=== PATIENT | male | born 1965 | race Caucasian/White ===

== ENCOUNTER 2017-08-26 14:40 | Observation (INO) ==
--- NOTE | 2017-08-26 15:02 | Emergency Department Note ---
Disposition Clinical Impression: Renal mass Chest pain Qualifiers: Chest pain type: unspecified Qualified Code(s): R07.9 - Chest pain, unspecified Disposition: Admitted As Inpatient Condition: Fair Time of Disposition: 18:11 General Adult HPI - General Chief complaint: ED General Medical Stated complaint: hypertension Time Seen by Provider: 08/26/17 14:57 Source: patient Mode of arrival: ambulatory Limitations: no limitations Nursing Notes Reviewed: Yes Vital Signs Reviewed: Yes - History of Present Illness HPI Narrative: Headache elevated blood pressure shoulder pain back pain. Describes the pain as tearing type pain in the posterior left shoulder. Pt Subjective Complaint: 52-year-old male who comes in complaining of elevated blood pressure says h Onset (ago): day(s) Location: head, left, upper extremity Radiation: back Pain Severity: moderate Pain Scale: 7 Quality: aching Consistency: constant Improves with: nothing Worsens with: nothing Associated symptoms: Reports: headaches. Denies: confusion Treatments Prior to Arrival: none - Related Data Allergies Allergy/AdvReac Type Severity Reaction Status Date / Time Iodinated Contrast- Oral and Allergy Mild Hives Verified 08/26/17 16:24 IV Dye Sulfa (Sulfonamide Allergy Swelling Verified 05/17/15 18:21 Antibiotics) of Lip/Tongue/Throat bees Allergy Swelling Uncoded 05/17/15 18:21 of Lip/Tongue/Throat All systems ED: reviewed and negative except as stated. Constitutional: Denies: fever, chills, weakness, weight change Eyes: Denies: eye pain, eye discharge, vision change ENT ED: Denies: ear pain, throat pain, dental pain, hearing loss, epistaxis, congestion, dysphagia Cardiovascular: Denies: chest pain, palpitations, dyspnea on exertion, edema, syncope Respiratory: Denies: cough, dyspnea, wheezes, hemoptysis, stridor Gastrointestinal: Denies: abdominal pain, nausea, vomiting, diarrhea, constipation, hematemesis, melena, hematochezia Genitourinary: Denies: urgency, dysuria, frequency, hematuria Musculoskeletal: Reports: arthralgia. Denies: back pain, neck pain, myalgia Integumentary: Denies: rash, abrasion, lesions Neurological: Reports: headache. Denies: weakness, numbness, paresthesias, confusion, abnormal gait, vertigo Psychiatric: Denies: anxiety, depression, suicidal thoughts, homicidal thoughts , auditory hallucinations, visual hallucinations Endocrine: Denies: fatigue Hematological/Lymphatic: Denies: easy bleeding, easy bruising Allergic/Immunologic: Denies: facial swelling, urticaria Past Medical History - Past Medical History Medical history: Reports: diabetes, GERD, hyperlipidemia, hypertension Surgical history: Reports: appendectomy, orthopedic, other, other Psychiatric history: Reports: depression - Social History Smoking Status: Unknown if ever smoked Smokeless Tobacco Status: Yes Alcohol use: Reports: rarely Drug use: Reports: none Physical Exam - General Limitations: no limitations General appearance: alert, in no apparent distress - Head Head exam: atraumatic, normocephalic, normal inspection - Eye Eye exam: Present: normal appearance, PERRL, EOMI - ENT ENT exam: normal exam, normal oropharynx, mucous membranes moist - Neck Neck exam: Present: normal inspection, full ROM, trachea midline - Chest Chest inspection: Present: normal inspection, symmetric chest wall rise - Respiratory Respiratory exam: Present: normal lung sounds bilaterally - Cardiovascular Cardiovascular exam: Present: regular rate, normal rhythm, normal heart sounds - Abdominal Exam Abdominal exam: Present: soft, Non-Tender. Absent: tenderness, distention, guarding, rebound, rigidity - Extremities Exam Extremities exam: Present: normal inspection, full ROM. Absent: tenderness, pedal edema - Expanded Lower Extremity Exam Hip/Pelvis exam: Present: normal inspection, full ROM Neurovascular/Tendon exam: Absent: motor deficit, sensory deficit, tendon deficit - Back Exam Back exam: Present: normal inspection, full ROM. Absent: tenderness - Neurological Exam Neurological exam: Present: alert, oriented X3 - Psychiatric Psychiatric exam: Present: normal affect, normal mood - Skin Skin exam: Present: warm, dry, intact, normal color Course - Reevaluation(s) Reevaluation #1: 52-year-old who came in complaining of some chest discomfort and tearing pain in his shoulder. He CT of the aorta was obtained which showed no dissection however it did show a 3.3 cm mass in the kidney. Patient will be admitted for chest pain and also will be evaluated for the mastitis kidney consultation was obtained with urology. Time: 18:08 - Consultations Consultation #1: Discussed with , will see the patient in consult Time: 18:09 Consultation #2: Discussed with Dr. Donaldson, admit Time: 18:09 Vital Signs Temperature 99.1 F 01/07/18 14:55 Pulse Rate 82 08/26/17 14:55 Respiratory Rate 18 08/26/17 14:55 Blood Pressure 163/115 08/26/17 14:55 O2 Sat by Pulse Oximetry 94 08/26/17 14:55 Temperature 98.6 F 08/26/17 19:39 Pulse Rate 77 08/26/17 19:39 Respiratory Rate 16 08/26/17 19:39 Blood Pressure 154/110 08/26/17 19:39 O2 Sat by Pulse Oximetry 93 08/26/17 19:39 Oxygen Delivery Oxygen Delivery Nasal Cannula Medical Decision Making - Lab Data Lab results reviewed: Yes I reviewed the patient's lab results. Result diagrams: 08/26/17 15:18 08/26/17 15:18 Lab Results 08/26/17 08/26/17 08/26/17 Range/Units 15:18 15:18 15:18 WBC 10.3 (4.3-11.1) K/mcL RBC 5.28 (4.19-5.50) M/mcL Hgb 16.0 (12.9-16.9) g/dL Hct 47.6 (37.5-50.1) % MCV 90.2 (83.0-100.0) fL MCH 30.3 (28.0-33.3) pg MCHC 33.6 (31.6-35.5) g/dL RDW 13.1 (11.5-14.5) % Plt Count 267 (140-400) K/mcL MPV 10.7 (9.4-12.4) fL Immature Gran % 1.0 (0-4) % Seg Neutrophils % 69.4 % Lymphocytes % 17.4 % Monocytes % 9.7 % Eosinophils % 1.9 % Basophils % 0.6 % Neutrophils # 7.2 (1.6-8.9) K/mcL Lymphocytes # 1.8 (0.6-4.6) K/mcL Monocytes # 1.0 (0.0-1.3) K/mcL Eosinophils # 0.2 (0.0-0.6) K/mcL Basophils # 0.1 (0.0-0.2) K/mcL PT 10.2 (9.4-12.1) Seconds INR 1.0 APTT 30.2 (26.0-36.0) Seconds D-Dimer 381 (0-500) ng/mLFEU Sodium 139 (136-145) mEq/L Potassium 3.5 (3.5-5.1) mEq/L Chloride 104 (98-107) mEq/L Carbon Dioxide 27 (23-29) mEq/L BUN 21 H (6-20) mg/dL Creatinine 1.34 H (0.70-1.30) mg/dL Est GFR ( Amer) > 60 (> 60) Est GFR (Non-Af Amer) 56 L (> 60) BUN/Creatinine Ratio 16 (6-26) Glucose 128 H (70-105) mg/dL Calculated Osmolality 293 (280-300) Calcium 10.1 (8.6-10.3) mg/dL Troponin I (< 0.04) ng/mL 08/26/17 Range/Units 15:18 WBC (4.3-11.1) K/mcL RBC (4.19-5.50) M/mcL Hgb (12.9-16.9) g/dL Hct (37.5-50.1) % MCV (83.0-100.0) fL MCH (28.0-33.3) pg MCHC (31.6-35.5) g/dL RDW (11.5-14.5) % Plt Count (140-400) K/mcL MPV (9.4-12.4) fL Immature Gran % (0-4) % Seg Neutrophils % % Lymphocytes % % Monocytes % % Eosinophils % % Basophils % % Neutrophils # (1.6-8.9) K/mcL Lymphocytes # (0.6-4.6) K/mcL Monocytes # (0.0-1.3) K/mcL Eosinophils # (0.0-0.6) K/mcL Basophils # (0.0-0.2) K/mcL PT (9.4-12.1) Seconds INR APTT (26.0-36.0) Seconds D-Dimer (0-500) ng/mLFEU Sodium (136-145) mEq/L Potassium (3.5-5.1) mEq/L Chloride (98-107) mEq/L Carbon Dioxide (23-29) mEq/L BUN (6-20) mg/dL Creatinine (0.70-1.30) mg/dL Est GFR ( Amer) (> 60) Est GFR (Non-Af Amer) (> 60) BUN/Creatinine Ratio (6-26) Glucose (70-105) mg/dL Calculated Osmolality (280-300) Calcium (8.6-10.3) mg/dL Troponin I < 0.03 (< 0.04) ng/mL - Radiology Data Radiology results reviewed: Yes I reviewed the patient's radiology results. Abdomen/Pelvis CTA 08/26/17 15:02 IMPRESSION: No CT evidence of aortic dissection. 3.3 cm heterogeneously enhancing solid mid to lower pole left renal cortical lesion most compatible with renal cell carcinoma. D/ / Jane Owen Cha, MD / Jane Owen Cha, MD Interpreting Provider: Jane Owen Cha, MD Chest CTA 08/26/17 15:02 IMPRESSION: No CT evidence of aortic dissection. 3.3 cm heterogeneously enhancing solid mid to lower pole left renal cortical lesion most compatible with renal cell carcinoma. D/ / Jane Owen Cha, MD / Jane Owen Cha, MD Interpreting Provider: Jane Owen Cha, MD Head CT 08/26/17 15:02 IMPRESSION: No acute intracranial abnormality. D/ / Arpit Randle / Arpit Randle Interpreting Provider: Arpit Randle - EKG Data EKG #1 EKG attestation: Yes I reviewed and interpreted this EKG. EKG shows normal: sinus rhythm Rate: normal Rhythm: NSR Interpretation: no acute changes
[2017-08-26] MEDS ORDERED: Ondansetron 4 MG/2 ML VIAL IVP ONE ×2 (15:13→18:54)
[2017-08-26] MEDS ORDERED: *HR* HYDROmorphone (PF) 1 MG/ML SYRINGE IVP ONE ×2 (15:13→18:54)
[2017-08-26 15:31] LABS: Basophils # 0.1 K/mcL (0.0-0.2); Basophils % 0.6 %; Eosinophils # 0.2 K/mcL (0.0-0.6); Eosinophils % 1.9 %; Hematocrit 47.6 % (37.5-50.1); Lymphocytes # 1.8 K/mcL (0.6-4.6); Lymphocytes % 17.4 %; Mean Corpuscular HGB Conc 33.6 g/dL (31.6-35.5); Mean Corpuscular Hemoglobin 30.3 pg (28.0-33.3); Mean Corpuscular Volume 90.2 fL (83.0-100.0); Mean Platelet Volume 10.7 fL (9.4-12.4); Monocytes % 9.7 %; Neutrophils # 7.2 K/mcL (1.6-8.9); Platelet Count 267 K/mcL (140-400); Red Blood Count 5.28 M/mcL (4.19-5.50); Red Cell Distribution Width 13.1 % (11.5-14.5); Segmented Neutrophils % 69.4 %
[2017-08-26 15:37] LABS: Prothrombin Time 10.2 Seconds (9.4-12.1)
[2017-08-26 15:40] LABS: Activated Partial Thrombo Time 30.2 Seconds (26.0-36.0)
[2017-08-26 15:46] LABS: BUN/Creatinine Ratio 16 (6-26); Blood Urea Nitrogen 21 mg/dL (6-20); Calcium 10.1 mg/dL (8.6-10.3); Carbon Dioxide 27 mEq/L (23-29); Chloride 104 mEq/L (98-107); Glucose 128 mg/dL (70-105); Osmolality,Calculated 293 (280-300); Potassium 3.5 mEq/L (3.5-5.1); Sodium 139 mEq/L (136-145); eGFR For African Americans > 60 (> 60); eGFR For Non-African Americans 56 (> 60)
[2017-08-26] MEDS ORDERED: methylPREDNISolone 125 MG/2 ML VIAL IVP ONE (16:21)
[2017-08-26] MEDS ORDERED: *HR* HYDROmorphone (PF) 1 MG/ML SYRINGE ONE (19:02)
[2017-08-26] MEDS ORDERED: Ondansetron 4 MG/2 ML VIAL ONE (19:03)
[2017-08-26 19:07] LABS: Bilirubin,Urine Negative (Negative); Blood,Urine Negative (Negative); Clarity,Urine Clear (Clear); Color,Urine Yellow (Yellow); Glucose,Urine (UA) Normal (Normal); Ketones,Urine Negative (Negative); Leukocyte Esterase,Urine Negative (Negative); Nitrite,Urine Negative (Negative); Protein,Urine 30 mg/dL (Neg-Trace); Specific Gravity,Urine > 1.030 (1.010-1.025); Urobilinogen,Urine Normal (Normal)
[2017-08-26 19:09] LABS: Bacteria,Urine None Seen per hpf (None-Few); Hyaline Casts,Urine None Seen per lpf (None-Few); RBC,Urine 0-3 per hpf (0-3); Squamous Epithelial Cell,Urine Many per lpf (None-Few); WBC,Urine 0-3 per hpf (0-3)
[2017-08-26] MEDS ORDERED: Ondansetron 4 MG/2 ML VIAL IVP PRN (19:56)
[2017-08-26] MEDS ORDERED: Naloxone 0.4 MG/ML INJ IVP PRN (19:56)
[2017-08-26] MEDS ORDERED: *HR* Morphine 2 MG/ML SYRINGE IVP PRN (19:56)
[2017-08-26] MEDS ORDERED: Aspirin 325 MG TABLET PO ONE (20:06)
[2017-08-26] MEDS ORDERED: *HR* Dextrose 50 % in Water (Syg) 50 ML SYRINGE IVP PRN (20:11)
[2017-08-26] MEDS ORDERED: Dextrose Gel 15 GM/37.5 ML TUBE PO PRN ×2 (20:11)
[2017-08-26] MEDS ORDERED: D5% in Water 1,000 ML IVC PRN (20:11)
--- NOTE | 2017-08-26 20:12 | Internal Med History&Physical ---
Date of Encounter: 08/26/17 Time of Encounter: 20:10 Assessment and Plan (1) Hypertensive emergency Current visit: Yes Status: Acute patient has been expanding left neck pain radiating down left shoulder describing the pain as sharp to tearing-pain eventually radiates up to front of head around eyes. He checked his blood pressure systolic was 200 diastolic was 100. He also had lightheadedness and photophobia nausea. CT of his head which was negative. 2 we will continue with cardiac monitoring 3 trend troponins 4 continue with amlodipine hydralazine and home medications 5 Will obtain cardiac echo 6 neurological checks (2) MARIIA (acute kidney injury) Current visit: Yes Status: Acute Patient's creatinine is 1.4 baseline around 1. We will monitor creatinine We will give gentle IV fluids overnight Monitor intake and output daily weight Avoid nephrotoxins (3) Renal mass Current visit: Yes Status: Acute CT of abdomen chest did reveal right renal mass-patient has a history of cigarette smoking-urology has been consulted and will see patient in the a.m. (4) Diabetes mellitus Current visit: Yes Status: Acute Accu-Cheks before meals at bedtime with insulin scale insulin Qualifiers: Diabetes mellitus type: type 2 Diabetes mellitus complication status: without complication Diabetes mellitus senior living insulin use: without senior living use Qualified Code(s): E11.9 - Type 2 diabetes mellitus without complications (5) DVT prophylaxis Current visit: Yes Status: Acute Heparin subcutaneous Internal Medicine - H&P: HPI Chief complaint: Headache neckpain Admitted From: Emergency Dept Plans for Post Hospital Care: Home History of present illness: Mr. Lowe is a 52 year old male past medical history of diabetes. Hyperlipidemia hypertension current smoker. According to the patient with past 2 days he has been experiencing left-sided neck pain that radiates down to his back into his left shoulder. The pain was constant and is made worse when he would turn his head to look to the left was nothing that would relieve the pain. Today the pain radiated up to his head felt it was around his eyes, he did have photophobia and felt nauseated and lightheaded. He did check his blood pressure and systolic was over 200 diastolic was 100. He continued to experience the left neck pain radiating to his shoulder described as tearing. He presented to the ER with the above complaints. Lab work was obtained and did show an AK I however for the rest of his lab work was unremarkable. Head CT was negative for any intracranial abnormalities chest/abdominal pelvis CT was negative for any dissecting aneurysm however did reveal 3.3 cm heterogeneously enhancing solid mid to lower pole left renal cortical lesion most compatible with renal cell carcinoma. ER physician did speak with urology he will see patient up on consult. Patient has been admitted for further evaluation. e Past Med Surg Social Fam HX - Past Medical History Medical history: diabetes, GERD, hyperlipidemia, hypertension Psychiatric history: depression - Past Surgical History Surgical History: appendectomy, orthopedic, other, other - Social History Smoking Status: Unknown if ever smoked Smokeless Tobacco Status: Yes Alcohol use: rarely Drug use: none - Family History Father Living Status: Cause of : trauma Hx Family Endocrine Disorder: Yes (Diabetes) Mother Living Status: Still Living Hx Family Cardiac Disorders: Yes (Hypertension) Hx Family Endocrine Disorder: Yes (Diabetes) Internal Medicine - H&P: Meds 3 Allergy/AdvReac Type Severity Reaction Status Date / Time Iodinated Contrast- Oral and Allergy Mild Hives Verified 08/26/17 16:24 IV Dye Sulfa (Sulfonamide Allergy Swelling Verified 05/17/15 18:21 Antibiotics) of Lip/Tongue/Throat bees Allergy Swelling Uncoded 05/17/15 18:21 of Lip/Tongue/Throat All Systems PM: A 10-system review of systems was performed and is negative for pertinent findings except as documented above in the HPI. - Constitutional Constitutional: no chills, no fever(s), no night sweats - EENT Eyes: no change in vision, no discharge, no pain, no photophobia Nose, mouth and throat: no dysphagia, no nasal discharge, no neck pain, no sore throat - Cardiovascular Cardiovascular ROS IM: lightheadedness, no chest pain, no diaphoresis, no dyspnea, no palpitations, no syncope - Respiratory Respiratory: no cough, no dyspnea, no wheezing, no excessive phlegm production - Gastrointestinal Gastrointestinal: no abdominal pain, no diarrhea, no hematemesis, no hematochezia, no melena, no nausea, no vomiting - Musculoskeletal Musculoskeletal ROS IM: neck pain - Integumentary Integumentary IM: no rash, no unusual bruising - Neurological Neurological ROS: headache(s), no confusion, no convulsions, no focal weakness, no numbness, no tingling, no tremor(s) - Hematologic/Lymphatic Hematologic/Lymphatic: no easy bruising - Constitutional Vitals: Temp Pulse Resp BP Pulse Ox 98.6 F 77 16 154/110 93 08/26/17 19:39 08/26/17 19:39 08/26/17 19:39 08/26/17 19:39 08/26/17 19:39 General appearance: Present: A&O X 3, answers questions appropriately - Head Head exam: Present: atraumatic, normocephalic - Eye Eye exam: Present: PERRL, conjuntiva pink, sclera anicteric Pupils: Present: PERRL - Neck Neck exam general surgery: Present: supple, trachea midline. Absent: lymphadenopathy - Respiratory Respiratory exam: Present: CTAB. Absent: accessory muscle use, rales, rhonchi, wheezes - Cardiovascular Cardiovascular exam: Present: RRR, +S1, +S2. Absent: diastolic murmur, gallop, rubs, systolic murmur - GI/Abdominal GI/Abdominal exam: Present: normal bowel sounds, soft, no peritoneal signs. Absent: distended, tenderness - Extremities Exam Extremities exam: Present: warm, radial pulses palpable and symmetrical. Absent : calf tenderness, cyanotic, pedal edema - Neurological Exam Neurological exam: Present: CN II-XII intact, oriented X3, no focal deficits. Absent: pronater drift, facial droop, speech deficit - Skin Skin exam: Present: dry, intact Internal Med - H&P Results - Labs CBC & Chem 7: 08/26/17 15:18 08/26/17 15:18 Labs: Urine 08/26/17 Range/Units 18:59 Urine Color Yellow (Yellow) Urine Clarity Clear (Clear) Urine pH 6.0 (5.0-8.0) pH Units Ur Specific [place] > 1.030 H (1.010-1.025) Urine Protein 30 H (Neg-Trace) mg/dL Urine Glucose (UA) Normal (Normal) mg/dL - EKG Data EKG shows normal: sinus rhythm - EKG Data Prior EKG available for review: yes When compared to previous EKG: there is no significant change - Diagnostic Studies Other Images Additional comments: Abdomen/Pelvis CTA 08/26/17 15:02 IMPRESSION: No CT evidence of aortic dissection. 3.3 cm heterogeneously enhancing solid mid to lower pole left renal cortical lesion most compatible with renal cell carcinoma. D/ / Jane Owen Cha, MD / Jane Owen Cha, MD Interpreting Provider: Jane Owen Cha, MD Chest CTA 08/26/17 15:02 IMPRESSION: No CT evidence of aortic dissection. 3.3 cm heterogeneously enhancing solid mid to lower pole left renal cortical lesion most compatible with renal cell carcinoma. D/ / Jane Owen Cha, MD / Jane Owen Cha, MD Interpreting Provider: Jane Owen Cha, MD Head CT 08/26/17 15:02 IMPRESSION: No acute intracranial abnormality. D/ / Arpit Randle / Arpit Randle Interpreting Provider: Arpit Randle
--- NOTE | 2017-08-26 20:36 | Event Note ---
Date of Encounter: 08/26/17 Time of Encounter: 20:34 1. Chest pain likely secondary to hypertensive emergency Continue metoprolol, valsartan, add amlodipine and hydralazine IV as needed Echocardiogram, troponins, telemetry 2. Right renal mass, urology consult, the patient was to see Dr. garcia 3. Diabetes type 2, not insulin-dependent, may use sliding scale 4. Tobacco use, smoking cessation counseling, nicotine patch Omeprazole for GI prophylaxis and subcutaneous heparin for DVT prophylaxis. The patient will be admitted for observation, full code. Time spent on this admission 40 minutes H&P will be completed by Melanie Carlos NP
[2017-08-26] MEDS ORDERED: 0.9 % Sodium Chloride 1,000 ML IVC SCH (21:00)
[2017-08-26] MEDS: amLODIPine 5 MG TABLET PO SCH (23:19)
[2017-08-26] MEDS: Insulin LISPRO 300 UNITS/3 ML VIAL SQ SCH (23:22)
[2017-08-27 03:58] LABS: Basophils % 0.2 %; Eosinophils % 0.1 %; Hematocrit 44.3 % (37.5-50.1); Hemoglobin 14.9 g/dL (12.9-16.9); Immature Granulocytes % 0.8 % (0-4); Lymphocytes # 1.2 K/mcL (0.6-4.6); Lymphocytes % 8.2 %; Mean Corpuscular HGB Conc 33.6 g/dL (31.6-35.5); Mean Corpuscular Hemoglobin 30.6 pg (28.0-33.3); Monocytes # 0.3 K/mcL (0.0-1.3); Neutrophils # 12.6 K/mcL (1.6-8.9); Platelet Count 261 K/mcL (140-400); Red Blood Count 4.87 M/mcL (4.19-5.50); Red Cell Distribution Width 13.2 % (11.5-14.5); Segmented Neutrophils % 88.7 %
[2017-08-27 04:14] LABS: Calcium 10.1 mg/dL (8.6-10.3); Magnesium 1.7 mg/dL (1.6-2.6); Potassium 4.1 mEq/L (3.5-5.1)
[2017-08-27] MEDS: *HR* Enoxaparin 40 MG/0.4 ML SYRINGE SQ SCH (06:03)
--- NOTE | 2017-08-27 07:49 | Urology - Consult Note ---
Date of Encounter: 08/27/17 Time of Encounter: 07:41 - Assessment and Plan (1) MARIIA (acute kidney injury) Current Visit: Yes Status: Acute Assessment and plan: Unsure of cause of acute rise in serum creatinine. Management per primary team. This could likely be secondary to hypertensive emergency (2) Renal mass Current Visit: Yes Status: Acute Assessment and plan: I discussed with the patient briefly regarding his left renal mass. This is roughly a 90% chance of being a renal cell carcinoma. I discussed with the patient treatment options including left nephrectomy, left partial nephrectomy, left ablative procedures, and observation. I informed the patient that I believe the best option for the patient would be a left robotic-assisted laparoscopic partial nephrectomy. We will plan on having the patient follow up with me in 2-3 weeks for discussion of definitive management. Patient's is undergoing surgery today and will likely coordinate follow-up appointments. Urology CN:AARON Consult date: 08/27/17 Reason for consult Urology: Other (left renal mass) Requesting physician: Jewel Childers History of present illness: Petros is a 52 y/o male who was admitted for hypertensive emergency. CT scan was done which revealed a 3 cm left renal mass which was enhancing. Upon review of patient's record he did have a CT scan done in 2013 which showed a possible mass but these 2 CT scans were done without IV contrast. Patient's blood pressure is much improved since admission to the hospital. No pain at this time. No weight loss. No nausea or vomiting. Past Med Surg Social Fam HX - Past Medical History Medical history: diabetes, GERD, hyperlipidemia, hypertension Psychiatric history: depression - Past Surgical History Surgical History: appendectomy, orthopedic, other, other - Social History Smoking Status: Unknown if ever smoked Smokeless Tobacco Status: Yes Alcohol use: rarely Drug use: none - Family History Father Living Status: Cause of : trauma Hx Family Endocrine Disorder: Yes (Diabetes) Mother Living Status: Still Living Hx Family Cardiac Disorders: Yes (Hypertension) Hx Family Endocrine Disorder: Yes (Diabetes) Medications and Allergies Aspirin [Ecotrin] 325 mg PO DAILY 08/27/17 [History] Atorvastatin Calcium [Lipitor] 40 mg PO HS 08/27/17 [History] Citalopram Hydrobromide [Celexa] 40 mg PO HS 08/27/17 [History] Fexofenadine/Pseudoephedrine [Kay-D 24 Hour Tablet] 180 mg PO HS 08/27/17 [ History] Lansoprazole [Prevacid] 30 mg PO HS 08/27/17 [History] Metformin HCl [Metformin HCl ER] 500 mg PO BID 08/27/17 [History] Metoprolol [Lopressor] 100 mg PO DAILY 08/27/17 [History] Tizanidine HCl [Zanaflex] 4 mg PO HS 08/27/17 [History] Triamterene/HCTZ 75/50mg [Maxzide] 1 each PO HS 08/27/17 [History] Ubidecarenone [Co Q-10] 200 mg PO DAILY 08/27/17 [History] Valsartan [Diovan] 320 mg PO DAILY 08/27/17 [History] Vitamin B Complex Vit C No.4 [Super B Complex] 150 mg PO DAILY 08/27/17 [History ] amLODIPine [Norvasc] 5 mg PO DAILY 08/27/17 [History] 3 Allergy/AdvReac Type Severity Reaction Status Date / Time Iodinated Contrast- Oral and Allergy Mild Hives Verified 08/26/17 16:24 IV Dye Sulfa (Sulfonamide Allergy Swelling Verified 05/17/15 18:21 Antibiotics) of Lip/Tongue/Throat bees Allergy Swelling Uncoded 05/17/15 18:21 of Lip/Tongue/Throat Review of Systems - Constitutional no chills, no fever(s), no weakness - EENT Nose, mouth and throat: no dizziness - Cardiovascular no chest pain - Respiratory no cough - Gastrointestinal no abdominal pain - Musculoskeletal no back pain - Integumentary no erythema - Neurological no confusion - Psychiatric no anxiety - Hematologic/Lymphatic no easy bleeding, no lymphadenopathy Exam Initial Vital Signs Temp Pulse Resp BP Pulse Ox 99.1 F 82 18 163/115 94 08/26/17 14:55 08/26/17 14:55 08/26/17 14:55 08/26/17 14:55 08/26/17 14:55 - General physical appearance Present: well developed, no distress. Absent: jaundice - Eyes Present: PERRL. Absent: icteric - Neck Present: no masses, no lymphadenopathy - Respiratory Present: normal respiratory effort - Cardiovascular Cardiovascular exam IM: RRR - Abdomen Abdomen: Present: soft. Absent: masses - Integumentary Present: no rash, no abnormal pigmentation - Neurologic Present: normal coordination Urology Results - Labs 08/27/17 02:56 08/27/17 02:56 Abnormal lab results WBC 14.2 K/mcL (4.3-11.1) H 08/27/17 02:56 Neutrophils # 12.6 K/mcL (1.6-8.9) H 08/27/17 02:56 Sodium 135 mEq/L (136-145) L 08/27/17 02:56 BUN 28 mg/dL (6-20) H 08/27/17 02:56 Creatinine 1.52 mg/dL (0.70-1.30) H 08/27/17 02:56 Est GFR ( Amer) 58 (> 60) L 08/27/17 02:56 Est GFR (Non-Af Amer) 48 (> 60) L 08/27/17 02:56 Glucose 283 mg/dL (70-105) H 08/27/17 02:56 HDL Cholesterol 35 mg/dL (40-59) L 08/27/17 02:56 Ur Specific [place] > 1.030 (1.010-1.025) H 08/26/17 18:59 Urine Protein 30 mg/dL (Neg-Trace) H 08/26/17 18:59 Ur Squamous Epith Cells Many per lpf (None-Few) H 08/26/17 18:59 Diabetes panel 08/27/17 Range/Units 02:56 Sodium 135 L (136-145) mEq/L Potassium 4.1 (3.5-5.1) mEq/L Chloride 101 (98-107) mEq/L Carbon Dioxide 26 (23-29) mEq/L BUN 28 H (6-20) mg/dL Creatinine 1.52 H (0.70-1.30) mg/dL Glucose 283 H (70-105) mg/dL Calcium 10.1 (8.6-10.3) mg/dL Triglycerides 146 (< 150) mg/dL HDL Cholesterol 35 L (40-59) mg/dL Calcium panel 08/27/17 Range/Units 02:56 Calcium 10.1 (8.6-10.3) mg/dL Pituitary panel 08/27/17 Range/Units 02:56 Sodium 135 L (136-145) mEq/L Potassium 4.1 (3.5-5.1) mEq/L Chloride 101 (98-107) mEq/L Carbon Dioxide 26 (23-29) mEq/L BUN 28 H (6-20) mg/dL Creatinine 1.52 H (0.70-1.30) mg/dL Glucose 283 H (70-105) mg/dL Calcium 10.1 (8.6-10.3) mg/dL Adrenal panel 08/27/17 Range/Units 02:56 Sodium 135 L (136-145) mEq/L Potassium 4.1 (3.5-5.1) mEq/L Chloride 101 (98-107) mEq/L Carbon Dioxide 26 (23-29) mEq/L BUN 28 H (6-20) mg/dL Creatinine 1.52 H (0.70-1.30) mg/dL Glucose 283 H (70-105) mg/dL Calcium 10.1 (8.6-10.3) mg/dL All other labs normal. - Imaging CT scan - abdomen: image reviewed CT scan - pelvis: image reviewed Consult Discharge Plan - Plan Referrals: Conner Charles DO [Primary Care Provider] -
[2017-08-27] MEDS: Acetaminophen 325 MG TABLET PO PRN (07:53)
[2017-08-27] MEDS: Aspirin 325 MG TABLET PO SCH (07:53)
[2017-08-27] MEDS: Insulin LISPRO 300 UNITS/3 ML VIAL SQ SCH ×4 (07:53→20:05)
[2017-08-27] MEDS: amLODIPine 5 MG TABLET PO SCH (07:54)
[2017-08-27] MEDS: Metoprolol XL (24 HR) Succ 50 MG TAB.ER.24H PO SCH (07:54)
[2017-08-27] MEDS ORDERED: Aspirin 81 MG TAB.CHEW PO SCH (09:00)
[2017-08-27] MEDS ORDERED: Valsartan 160 MG TABLET PO SCH (09:00)
--- NOTE | 2017-08-27 09:38 | Electrocardiograph Report ---
[place] [id number] Test Date: 2017-08-26 Pat Name: Petros Lowe Department: 103 Room: 3B49 Gender: M Invasive Cardiologist: ANA : 1965 Requested By: Kyle Chavez Order Number: [id number] Reading MD: Nimco Lundy Measurements Intervals [place] Rate: 80 P: 28 LA: 160 QRS: -19 QRSD: 91 T: 32 QT: 367 QTc: 403 Interpretive Statements SINUS RHYTHM POSSIBLE LEFT ATRIAL ENLARGEMENT [-0.1mV P WAVE IN V1/V2] POSSIBLE LEFT VENTRICULAR HYPERTROPHY [VOLTAGE CRITERIA PLUS LAE OR QRS WIDENING] NONSPECIFIC T-WAVE ABNORMALITY Electronically Signed On 08-27-2017 9:37:08 EST by Nimco Lundy
--- NOTE | 2017-08-27 12:49 | Internal Med Progress Note ---
Date of Encounter: 08/27/17 Time of Encounter: 11:00 - Assessment and plan (1) Renal mass Current Visit: Yes Status: Acute Assessment and plan: Seen by urology with plans to follow up as an outpatient for surgical removal. (2) MARIIA (acute kidney injury) Current Visit: Yes Status: Acute Assessment and plan: Kidney function continues to worsen with elevated creatinine. Possibly multifactorial with being on multiple nephrotoxic agents including valsartan, hydrochlorothiazide, triamterene. This could also be elevated because of the uncontrolled hypertension. Not exactly sure if he has underlying chronic kidney disease. For now I will hold his nephrotoxic agents. We will start him on gentle hydration. We will check labs in the morning. Kidney function continues to worsen will have nephrology see the patient (3) Hypertensive emergency Current Visit: Yes Status: Acute Assessment and plan: Blood pressure seems to be doing better. He is on hydralazine IV used when necessary. Continue with metoprolol. His Norvasc has been increased and milligrams and 5 mg. Holding his valsartan, hydrochlorothiazide and triamterene for now given elevated kidney function. We will adjust medications as his blood pressure dictates.. (4) Diabetes mellitus Current Visit: Yes Status: Acute Assessment and plan: Continue insulin sliding scale. Continue with Accu-Cheks. Qualifiers: Diabetes mellitus type: type 2 Diabetes mellitus complication status: without complication Diabetes mellitus intermediate designer insulin use: without jail use Qualified Code(s): E11.9 - Type 2 diabetes mellitus without complications (5) DVT prophylaxis Current Visit: Yes Status: Acute Assessment and plan: Lovenox - Subjective Interval history: No acute events. The patient was admitted yesterday was found to be in hypertensive emergency. His blood pressure is much better improved. He said his headache and his photophobia is much better for physical. He says he knows when he has had a blood pressure he gets headaches. His afebrile. - Constitutional Vitals: Temp Pulse Resp BP Pulse Ox 98.3 F 90 16 154/94 95 08/27/17 11:14 08/27/17 11:14 08/27/17 11:14 08/27/17 11:14 08/27/17 11:14 General appearance: Present: A&O X 3, answers questions appropriately Exam: GEN: NAD CVS: RRR. S1, S2, No m/r/g RESP: CTAB ABD: Soft, NT, ND, +BS EXT: No edema. 2+ DP. No rashes NEURO: Nonfocal Internal Medicine: Result - Labs CBC & Chem 7: 08/27/17 02:56 08/27/17 02:56 Labs: Short CBC 08/27/17 Range/Units 02:56 WBC 14.2 H (4.3-11.1) K/mcL Hgb 14.9 (12.9-16.9) g/dL Hct 44.3 (37.5-50.1) % Plt Count 261 (140-400) K/mcL Neutrophils # 12.6 H (1.6-8.9) K/mcL BMP 08/27/17 02:56 Sodium 135 L Potassium 4.1 Chloride 101 Carbon Dioxide 26 BUN 28 H Creatinine 1.52 H Glucose 283 H Calcium 10.1 Cardiac Enzymes 08/26/17 08/27/17 Range/Units 20:47 02:56 Troponin I < 0.03 < 0.03 (< 0.04) ng/mL Urine 08/26/17 Range/Units 18:59 Urine Color Yellow (Yellow) Urine Clarity Clear (Clear) Urine pH 6.0 (5.0-8.0) pH Units Ur Specific How[place] > 1.030 H (1.010-1.025) Urine Protein 30 H (Neg-Trace) mg/dL Urine Glucose (UA) Normal (Normal) mg/dL - ABG Interpretation ABG results: PT/INR, D-dimer PT 10.2 Seconds (9.4-12.1) 08/26/17 15:18 D-Dimer 381 ng/mLFEU (0-500) 08/26/17 15:18 - Impressions Impressions Echocardiogram 08/27/17 07:00 Impressions: LVEF 60-65%. Mild concentric left ventricular hypertrophy. Mild left ventricular diastolic dysfunction. Normal right ventricular structure and function. No significant valvular dysfunction. No pulmonary hypertension. Left Ventricular Wall Motion: Rest Echo Findings All wall segments showed normal motion. Findings: Study Quality * Technically adequate exam. ECG Findings * Normal sinus rhythm. Left Ventricle * LVEF 60-65%. * Mild concentric left ventricular hypertrophy. * Normal LV size. * Mild left ventricular diastolic dysfunction. Right Ventricle * Normal right ventricular structure and function. Left Atrium * Normal left atrial size. Right Atrium * Normal right atrial size. Aortic Valve * No aortic regurgitation. * Aortic valve not well visualized. * No aortic stenosis. Mitral Valve * No mitral regurgitation. * Normal mitral valve structure. * No mitral stenosis. Tricuspid Valve * Tricuspid valve not well visualized. * Trace tricuspid regurgitation. Pulmonic Valve * Pulmonic valve is not well visualized. * No pulmonic stenosis. * No pulmonic regurgitation. Pulmonary Artery * Pulmonary artery not well visualized. Aorta * Not well visualized. Pericardium * There is no pericardial effusion present. Interatrial Septum * No evidence of PFO by color Doppler. IVC * The IVC is not well evaluated. Consult Discharge Plan - Plan Referrals: Conner Charles DO [Primary Care Provider] -
[2017-08-27] MEDS: 0.9 % Sodium Chloride 1,000 ML IVC SCH (16:11)
[2017-08-28] MEDS: 0.9 % Sodium Chloride 1,000 ML IVC SCH (03:18)
[2017-08-28 05:58] LABS: Basophils # 0.1 K/mcL (0.0-0.2); Basophils % 0.4 %; Eosinophils # 0.1 K/mcL (0.0-0.6); Eosinophils % 0.5 %; Hematocrit 42.6 % (37.5-50.1); Hemoglobin 14.4 g/dL (12.9-16.9); Immature Granulocytes % 0.7 % (0-4); Lymphocytes # 2.4 K/mcL (0.6-4.6); Lymphocytes % 18.8 %; Mean Corpuscular HGB Conc 33.8 g/dL (31.6-35.5); Mean Corpuscular Hemoglobin 30.2 pg (28.0-33.3); Mean Corpuscular Volume 89.3 fL (83.0-100.0); Mean Platelet Volume 11.1 fL (9.4-12.4); Monocytes # 1.2 K/mcL (0.0-1.3); Monocytes % 9.3 %; Neutrophils # 8.8 K/mcL (1.6-8.9); Platelet Count 252 K/mcL (140-400); Red Blood Count 4.77 M/mcL (4.19-5.50); Red Cell Distribution Width 13.2 % (11.5-14.5); Segmented Neutrophils % 70.3 %
[2017-08-28 06:12] LABS: BUN/Creatinine Ratio 23 (6-26); Blood Urea Nitrogen 23 mg/dL (6-20); Calcium 9.3 mg/dL (8.6-10.3); Carbon Dioxide 26 mEq/L (23-29); Chloride 107 mEq/L (98-107); Glucose 130 mg/dL (70-105); Osmolality,Calculated 295 (280-300); Potassium 3.1 mEq/L (3.5-5.1); Sodium 140 mEq/L (136-145); eGFR For African Americans > 60 (> 60); eGFR For Non-African Americans > 60 (> 60)
[2017-08-28] MEDS: *HR* Enoxaparin 40 MG/0.4 ML SYRINGE SQ SCH (06:21)
[2017-08-28 06:56] VITALS: BP 154/98
[2017-08-28] MEDS: Insulin LISPRO 300 UNITS/3 ML VIAL SQ SCH (09:23)
[2017-08-28] MEDS: Metoprolol XL (24 HR) Succ 50 MG TAB.ER.24H PO SCH (09:29)
[2017-08-28] MEDS: amLODIPine 5 MG TABLET PO SCH (09:29)
[2017-08-28] MEDS: Aspirin 325 MG TABLET PO SCH (09:29)
[2017-08-28] MEDS: Acetaminophen 325 MG TABLET PO PRN (09:36)
--- NOTE | 2017-08-28 09:54 | Discharge Summary ---
Date of Encounter: 08/28/17 Time of Encounter: 09:52 - Discharge Diagnosis (1) Renal mass Priority: Primary Status: Acute (2) MARIIA (acute kidney injury) Priority: Primary Status: Acute (3) Hypertensive emergency Priority: Primary Status: Acute (4) Diabetes mellitus Priority: Secondary Status: Acute Qualifiers: Diabetes mellitus type: type 2 Diabetes mellitus complication status: without complication Diabetes mellitus [facility] insulin use: without exterminator helper use Qualified Code(s): E11.9 - Type 2 diabetes mellitus without complications - Discharge Medications Home Medications: Aspirin [Ecotrin] 325 mg PO DAILY 08/27/17 [History] Atorvastatin Calcium [Lipitor] 40 mg PO HS 08/27/17 [History] Citalopram Hydrobromide [Celexa] 40 mg PO HS 08/27/17 [History] Fexofenadine/Pseudoephedrine [Kay-D 24 Hour Tablet] 180 mg PO HS 08/27/17 [ History] Lansoprazole [Prevacid] 30 mg PO HS 08/27/17 [History] Metformin HCl [Metformin HCl ER] 500 mg PO BID 08/27/17 [History] Metoprolol [Lopressor] 100 mg PO DAILY 08/27/17 [History] Tizanidine HCl [Zanaflex] 4 mg PO HS 08/27/17 [History] Triamterene/HCTZ 75/50mg [Maxzide] 1 each PO HS 08/27/17 [History] Ubidecarenone [Co Q-10] 200 mg PO DAILY 08/27/17 [History] Valsartan [Diovan] 320 mg PO DAILY 08/27/17 [History] Vitamin B Complex Vit C No.4 [Super B Complex] 150 mg PO DAILY 08/27/17 [History ] Allergies/Adverse Reactions: 3 Allergy/AdvReac Type Severity Reaction Status Date / Time Iodinated Contrast- Oral and Allergy Mild Hives Verified 08/26/17 16:24 IV Dye Sulfa (Sulfonamide Allergy Swelling Verified 05/17/15 18:21 Antibiotics) of Lip/Tongue/Throat bees Allergy Swelling Uncoded 05/17/15 18:21 of Lip/Tongue/Throat Procedures/tests Complete & Pending: Procedures Performed prior 72 hours Category Date Time Status EV echocardiogram Routine Y 08/27/17 07:00 Completed Date of admission: 08/26/17 18:20 Primary care physician: Alyse Martino Consults: 08/26/17 18:29 Consult to Urology [CONS] Stat Consulting Provider: Shayy Capone Reason for Consult: Renal mass Time Notified: 18:30 Call Completed: Yes - Patient Status Disposition: Home, Self-Care Overall status at discharge: patient is progressing back to baseline - Discharge Instructions Instructions: Angina (DC) Follow Up With: Ben Anderson MD [Partnered Physician] - 09/04/17 10:45 am Conner Charles DO [Primary Care Provider] - 09/18/17 6:45 pm - Diet and Activity Activity: increase activity as tolerated Diet: diabetic diet Hospital course: Mr. Lowe is a 52 year old male past medical history of diabetes, hyperlipidemia, hypertension current smoker. The patient presented with feeling of headache and lightheadedness with some chest pain. His EKG was unremarkable. His initial blood pressure was in the 200s systolically and 100 diastolically. His workup in the ED and elevated kidney function. CT head was negative for intracranial abnormalities. 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 The patient was admitted to the hospitalist service for hypertensive emergency and further kidney mass. His troponins remained nonelevated. Urology saw the patient and he will follow up with him for possible nephrectomy. We uptitrated his amlodipine to 10 mg. His kidney function did improve with holding his Lasix and lisinopril. He had no further headaches with better blood pressure control. He had no recurrence of his chest pain with better blood pressure control. Echocardiogram was done which came back with an EF of 60-65% with mild ventricular diastolic dysfunction with no significant valvular dysfunction. The patient was discharged on 08/28/2017 - Time Spent with Patient Total time spent providing and/or coordinating discharge services: - Constitutional Vitals: Temp Pulse Resp BP Pulse Ox 97.5 F L 83 16 154/98 98 08/28/17 06:53 08/28/17 06:53 08/28/17 06:53 08/28/17 06:53 08/28/17 06:53 General appearance: Present: A&O X 3, answers questions appropriately Exam: GEN: NAD CVS: RRR. S1, S2, No m/r/g RESP: CTAB ABD: Soft, NT, ND, +BS EXT: No edema. 2+ DP. No rashes NEURO: Nonfocal
[2017-08-28] MEDS ORDERED: Valsartan 160 MG TABLET PO SCH (10:00)
== END 2017-08-28 10:40 | disposition home or self-care (01) ==
LOC: EMEROO 14:40 → 3BNU 14:40
PROVIDERS: ADMIT Hospitalist; ATTEND Registered Nurse

== ENCOUNTER 2017-11-22 06:32 | Inpatient (IN) ==
[2017-11-22] MEDS ORDERED: Famotidine 20 MG/2 ML VIAL IVP ONE (06:43)
[2017-11-22] MEDS ORDERED: Acetaminophen IV 1,000 MG/100 ML INFUS..BTL IVPB ONE (06:43)
[2017-11-22] MEDS ORDERED: CeFAZolin Syr 2,000MG/20 ML 2,000 MG/20 ML SYRINGE IVPB ONE (06:46)
[2017-11-22] MEDS ORDERED: Lidocaine -MPF 1% 2 ML VIAL ID ONE (06:46)
--- NOTE | 2017-11-22 07:01 | Urology History & Physical ---
Date of Encounter: 11/22/17 Time of Encounter: 07:00 Assessment and Plan (1) Left renal mass Current Visit: Yes Status: Acute to or today for left lap robo partial nephrectomy History of Present Illness Chief complaint: left renal mass HPI: Mr. Lowe is a 52 year old male here today for left partial nephrectomy. no new complaints. Past Med Surg Social Fam HX - Past Medical History Medical history: diabetes, GERD, hyperlipidemia, hypertension Psychiatric history: depression - Past Surgical History Surgical History: appendectomy, orthopedic, other, other - Social History Smoking Status: Unknown if ever smoked Smokeless Tobacco Status: Yes Alcohol use: rarely Drug use: none - Family History Father Living Status: Hx Family Endocrine Disorder: Yes (Diabetes) Mother Living Status: Still Living Hx Family Cardiac Disorders: Yes (Hypertension) Hx Family Endocrine Disorder: Yes (Diabetes) Medications and Allergies Aspirin [Ecotrin] 325 mg PO DAILY 08/27/17 [History] Atorvastatin Calcium [Lipitor] 40 mg PO HS 08/27/17 [History] Citalopram Hydrobromide [Celexa] 40 mg PO HS 08/27/17 [History] Fexofenadine/Pseudoephedrine [Kay-D 24 Hour Tablet] 180 mg PO HS 08/27/17 [ History] Lansoprazole [Prevacid] 30 mg PO HS 08/27/17 [History] Metformin HCl [Metformin HCl ER] 500 mg PO BID 08/27/17 [History] Metoprolol [Lopressor] 100 mg PO DAILY 08/27/17 [History] Tizanidine HCl [Zanaflex] 4 mg PO HS 08/27/17 [History] Triamterene/HCTZ 75/50mg [Maxzide] 1 each PO HS 08/27/17 [History] Ubidecarenone [Co Q-10] 200 mg PO DAILY 08/27/17 [History] Valsartan [Diovan] 320 mg PO DAILY 08/27/17 [History] Vitamin B Complex Vit C No.4 [Super B Complex] 150 mg PO DAILY 08/27/17 [History ] 3 Allergy/AdvReac Type Severity Reaction Status Date / Time Iodinated Contrast- Oral and Allergy Mild Hives Verified 10/04/17 10:27 IV Dye shellfish derived Allergy Swelling Verified 10/04/17 10:27 of Lip/Tongue/Throat Sulfa (Sulfonamide Allergy Swelling Verified 10/04/17 10:27 Antibiotics) of Lip/Tongue/Throat bees Allergy Swelling Uncoded 05/17/15 18:21 of Lip/Tongue/Throat Review of Systems - Constitutional no chills, no fever(s) - EENT Nose, mouth and throat: no dizziness - Cardiovascular no chest pain - Respiratory cough Exam Initial Vital Signs Temp Pulse Resp BP Pulse Ox 97.9 F 83 18 159/105 96 11/22/17 06:51 11/22/17 06:51 11/22/17 06:51 11/22/17 06:51 11/22/17 06:51 - General physical appearance Present: well developed, well nourished - Eyes Present: PERRL - ENT Present: normal nares - Neck Present: no masses, no lymphadenopathy - Respiratory Present: normal respiratory effort Urology Results - Labs All other labs normal.
--- NOTE | 2017-11-22 07:01 | History & Physical Report ---
Date of Encounter: 11/22/17 Time of Encounter: 07:01 24 Hour HP Update - Instructions Instructions: If the History and Physical is less than 30 days old and was completed prior to A.M. admission and or procedure and has NOT been updated on calendar day of procedure please complete this update prior to performing procedure. - Update Patient reports changes in Medical Condition: No Changes in examination, assessment, or condition: No Changes in Medication: No Preop tests/diagnostics Reviewed: Yes Surgery Remains Indicated: Yes Consent for Planned Operative Procedure(s) Verified: Yes - Pre-Operative Checklist Preoperative Checklist Indicated: Yes Prophylactic Antibiotic Ordered: Yes Is VTE Prophylaxis Indicated?: Yes
[2017-11-22] MEDS ORDERED: Ondansetron 4 MG/2 ML VIAL ONE (07:02)
[2017-11-22] MEDS ORDERED: Lidocaine -MPF 2% 2 ML VIAL ONE (07:02)
[2017-11-22] MEDS ORDERED: *HR* Propofol 200 MG/20 ML VIAL IVP ONE (07:02)
[2017-11-22] MEDS ORDERED: *HR* Rocuronium Bromide 50 MG/5 ML VIAL ONE ×3 (07:02→10:29)
[2017-11-22] MEDS ORDERED: *HR* FentaNYL (PF) 100 MCG/2 ML VIAL ONE ×3 (07:02→11:23)
[2017-11-22] MEDS ORDERED: *HR* Succinylcholine 200 MG/10 ML VIAL IVP ONE (07:02)
[2017-11-22] MEDS ORDERED: *HR* Midazolam HCl 2 MG/2 ML VIAL ONE (07:02)
[2017-11-22] MEDS ORDERED: Lidocaine -MPF 4% 5 ML AMPUL ONE (07:02)
[2017-11-22] MEDS ORDERED: Dexamethasone 4 MG/ML VIAL ONE (07:02)
[2017-11-22] MEDS: Albuterol 2.5 MG/3 ML NEBULIZER IH ONE ×2 (07:06→12:56)
[2017-11-22] MEDS: Ringers Solution, Lactated 1,000 ML IVC SCH ×2 (07:39→13:43)
--- NOTE | 2017-11-22 07:43 | Anesthesia Evaluation PreOp ---
Date of Encounter: 11/22/17 Time of Encounter: 07:35 - Past History Planned Operation: Robotic Lap Assisted Left Partial Nephrectomy Cardiac History: HTN, Hyperlipidemia Pulmonary History: Smoker, ALDEN Dx (non compliant CPAP...setting 2) CABLE INSPECTOR History: Denies Any Significant HX Other Medical History: Diabetes Type II Anesthesia History: No Prior Anesthetic Complications Alcohol Use: rarely Drug use: none Medications and Allergies Aspirin [Ecotrin] 325 mg PO DAILY 08/27/17 [History] Atorvastatin Calcium [Lipitor] 40 mg PO HS 08/27/17 [History] Citalopram Hydrobromide [Celexa] 40 mg PO HS 08/27/17 [History] Fexofenadine/Pseudoephedrine [Kay-D 24 Hour Tablet] 180 mg PO HS 08/27/17 [ History] Lansoprazole [Prevacid] 30 mg PO HS 08/27/17 [History] Metformin HCl [Metformin HCl ER] 500 mg PO BID 08/27/17 [History] Metoprolol [Lopressor] 100 mg PO DAILY 08/27/17 [History] Tizanidine HCl [Zanaflex] 4 mg PO HS 08/27/17 [History] Triamterene/HCTZ 75/50mg [Maxzide] 1 each PO HS 08/27/17 [History] Ubidecarenone [Co Q-10] 200 mg PO DAILY 08/27/17 [History] Valsartan [Diovan] 320 mg PO DAILY 08/27/17 [History] Vitamin B Complex Vit C No.4 [Super B Complex] 150 mg PO DAILY 08/27/17 [History ] 3 Allergy/AdvReac Type Severity Reaction Status Date / Time Iodinated Contrast- Oral and Allergy Mild Hives Verified 10/04/17 10:27 IV Dye shellfish derived Allergy Swelling Verified 10/04/17 10:27 of Lip/Tongue/Throat Sulfa (Sulfonamide Allergy Swelling Verified 10/04/17 10:27 Antibiotics) of Lip/Tongue/Throat bees Allergy Swelling Uncoded 05/17/15 18:21 of Lip/Tongue/Throat - Meds/Allergy Pre-op Review Medications Reviewed: Yes Allergies Reviewed: Yes Beta Blockers on Current Med List: Yes (Coreg today 0700) Anesthesia Results - Labs Laboratory Tests 08/26/17 10/04/17 10/04/17 15:18 10:37 10:37 Hgb 14.8 Hct 45.4 Plt Count 264 PT 10.2 INR 1.0 Sodium 139 Potassium 3.9 BUN 27 H Creatinine 0.98 - Imaging EKG: report reviewed (SR) Additional studies: ECHO 2017 EF 60%, no pulm htn Anesthesia Exam O2 Sat Height 1.68 m Height 1.68 m Height 1.68 m Weight 106.141 kg Weight 106.141 kg Weight 106.141 kg O2 Sat by Pulse Oximetry 96 O2 Sat by Pulse Oximetry 96 O2 Sat by Pulse Oximetry 96 Vital Signs Temp Pulse Resp BP Pulse Ox 97.9 F 83 18 159/105 96 11/22/17 06:51 11/22/17 06:51 11/22/17 06:51 11/22/17 06:51 11/22/17 06:51 Height: 5'6 Weight: 234 lbs NPO (# of Hours): MN Pain Scale: 0 - HEENT Pupil (Motor): Pupils equal, EOMI Mallampati: III Teeth: Normal Oral Opening: Less than or equal to 3 - CABLE INSPECTOR LOC: Oriented CABLE INSPECTOR Motor: Normal RUE, Normal LUE, Normal RLE, Normal LLE, Normal Face CABLE INSPECTOR Sensory: Normal: RUE, LUE, RLE, LLE, Face - Cardiac Rhythm: Regular Murmur: None JVD: No Carotid Bruit: No - Pulmonary Breath Sounds: bilateral Clear Respiratory Effort: Symmetrical Anesthesia Assess/Plan ASA Score: 3 (HTN DM ALDEN) Modified Frankie Scale for Level of Consciousness: Cooperative, oriented, and tranquil Anesthetic Plan: General, Regional Monitoring Plan: Standard Monitors Recovery Plan: PACU (Discussed GA and possible TAP Block if needed, agrees to proceed)
[2017-11-22] MEDS ORDERED: Bupivacaine/EPI 1:200k 0.25%PF 10 ML VIAL INFILT ONE (08:02)
[2017-11-22] MEDS ORDERED: *HR* PHENYLEPHRINE 1,000 MCG/10 ML SYRINGE IVP ONE (08:47)
[2017-11-22] MEDS ORDERED: EPHEDrine 50 MG/ML VIAL ONE (09:14)
[2017-11-22] MEDS ORDERED: Neostigmine Methylsulfate 3 MG/3 ML SYRINGE ONE (12:14)
[2017-11-22] MEDS ORDERED: Naloxone 0.4 MG/ML INJ ONE (12:47)
[2017-11-22] MEDS ORDERED: Albuterol 2.5 MG/3 ML NEBULIZER IH PRN (12:53)
[2017-11-22] MEDS ORDERED: Albuterol 2.5 MG/3 ML NEBULIZER ONE (12:55)
[2017-11-22] MEDS: MORPHINE SUL Oral CONC 10 MG/0.5 ML ORAL.SYG SL PRN ×2 (13:07→13:20)
--- NOTE | 2017-11-22 13:12 | Operative Note ---
Date of procedure: 11/22/17 Pre-op diagnosis: left renal mass Post-op diagnosis: same Procedure: Left robotic-assisted laparoscopic partial nephrectomy. Intraoperative use of ultrasound Anesthesia: TEJA Surgeon: Ben Anderson Was there an dental assistant present: Yes Straight Line Press Setter: Ruben Leon Estimated blood loss (cc): 200 Specimen: left renal mass and left fat around renal mass Condition: stable Disposition: PACU Procedure in Detail: I discussed with the patient and the the risks benefits and alternatives to the procedure. They voiced understanding and the informed consent was reviewed with the patient. Patient was prepped and draped in normal sterile fashion. I then used a Veress needle to obtain pneumoperitoneum robotic trochars and the dental assistant trochars were placed in standard fashion. Robot was then docked. I was then able to reflect the colon medially. At this point I was able to identify a large renal vein. Around this vein was able to identify 2 separate arteries which were carefully dissected and isolated. At this point I then used the laparoscopic ultrasound to allow identification of the left renal tumor. The fat was then peeled off this area to identify normal kidney and the area of concern of the tumor. The margins were then marked using the monopolar scissors. We then placed bulldog clamps on the 2 arteries. I then proceeded to incise around the tumor and excise the tumor. I did enter the renal collecting system at the base of the tumor but did not seem to enter the tumor itself. Specimen was placed aside. I then proceeded to sew close this collecting system opening using 3-0 the lock stitch. At this point I also was unable to perform capsular stitches using 0V LOC and 1 0 Vicryl. FloSeal was placed on top. Specimen was then placed into the specimen bag. No obvious bleeding was seen. All needles were removed. Specimen was then removed. Jamaal drain was then placed. Robot was then undocked. All skin incisions were closed using 4-0 Monocryl and I was able to perform a [id number] closure of the fascia from the larger incision. Dermabond was placed over top. Patient taken to PACU in stable condition.
[2017-11-22] MEDS ORDERED: *HR* Labetalol 20 MG/4 ML SYRINGE IVP PRN (13:17)
[2017-11-22] MEDS: *HR* Labetalol 100 MG/20 ML MDV IVP PRN ×3 (13:19→13:43)
[2017-11-22] MEDS: *HR* Promethazine 25 MG/ML VIAL IVP PRN ×2 (13:42→13:56)
--- NOTE | 2017-11-22 14:06 | Anesthesia Evaluation Post Op ---
Date of Encounter: 11/22/17 Time of Encounter: 14:05 - Vital Signs Vital Signs: vss - Lungs Lungs: Rhonchi (pt has received albuterol treatment) - Airway Airway: Non-obstructed - Cardiovascular Regular Rate - Mental Status Mental Status: Alert & Oriented, Answers Appropriately - Pain Pain Scale: 8 Pain Scale used: Numeric (1 - 10) (pt sleeping) - Nausea Vomiting Nausea Vomiting: Not Present - Hydration Hydration: Unable to tolerate oral fluids - Discharge PostOp Status: Transfer Patient to floor
[2017-11-22] MEDS ORDERED: Naloxone 0.4 MG/ML INJ IVP PRN (14:46)
[2017-11-22] MEDS ORDERED: *HR* Promethazine 25 MG/ML VIAL IV PRN (14:46)
[2017-11-22] MEDS: 0.9 % Sodium Chloride 1,000 ML IVC SCH ×2 (15:21→21:26)
[2017-11-22] MEDS: *HR* HYDROcodone/Acet 5/325 mg TABLET PO PRN (15:23)
[2017-11-22] MEDS: *HR* Metformin 500 MG TABLET PO SCH (17:23)
[2017-11-22] MEDS: OXYCODONE Oral CONC 10 MG/0.5 ML ORAL.SYG SL PRN ×2 (17:24→21:26)
[2017-11-22] MEDS: Nicotine 21 MG PATCH.TD24 TD SCH (17:24)
[2017-11-22] MEDS: tiZANidine 4 MG TABLET PO SCH (21:26)
[2017-11-22] MEDS: Gabapentin 300 MG CAPSULE PO SCH (21:26)
[2017-11-23] MEDS: OXYCODONE Oral CONC 10 MG/0.5 ML ORAL.SYG SL PRN ×5 (03:39→21:16)
[2017-11-23] MEDS: 0.9 % Sodium Chloride 1,000 ML IVC SCH ×4 (03:41→21:12)
[2017-11-23 05:40] LABS: Basophils % 0.2 %; Hematocrit 37.6 % (37.5-50.1); Hemoglobin 12.6 g/dL (12.9-16.9); Immature Granulocytes % 0.5 % (0-4); Lymphocytes % 7.9 %; Mean Corpuscular HGB Conc 33.5 g/dL (31.6-35.5); Mean Corpuscular Hemoglobin 30.8 pg (28.0-33.3); Mean Corpuscular Volume 91.9 fL (83.0-100.0); Mean Platelet Volume 10.9 fL (9.4-12.4); Monocytes # 1.4 K/mcL (0.0-1.3); Monocytes % 10.5 %; Neutrophils # 10.7 K/mcL (1.6-8.9); Platelet Count 223 K/mcL (140-400); Red Blood Count 4.09 M/mcL (4.19-5.50); Red Cell Distribution Width 13.3 % (11.5-14.5); Segmented Neutrophils % 80.9 %
[2017-11-23 05:59] LABS: BUN/Creatinine Ratio 20 (6-26); Blood Urea Nitrogen 25 mg/dL (6-20); Calcium 8.7 mg/dL (8.6-10.3); Carbon Dioxide 27 mEq/L (23-29); Chloride 103 mEq/L (98-107); Glucose 123 mg/dL (70-105); Osmolality,Calculated 290 (280-300); Potassium 3.4 mEq/L (3.5-5.1); Sodium 137 mEq/L (136-145); eGFR For African Americans > 60 (> 60); eGFR For Non-African Americans > 60 (> 60)
--- NOTE | 2017-11-23 06:46 | Urology Progress Note ---
Date of Encounter: 11/23/17 Time of Encounter: 06:44 - Assessment and Plan (1) Left renal mass Current Visit: Yes Status: Acute Assessment and plan: Patient will need to continue with ambulation. We will slowly advance diet. Catheter removal this morning. Keep JANNETTE until this afternoon. Plan on possible discharge this afternoon. Progress Note Narrative: Postoperative day 1 from left robotic-assisted laparoscopic partial nephrectomy. Patient did well and was up out of bed twice last night. Good urine output. Minimal JANNETTE output. Labs reviewed and were unremarkable at this time. Patient tolerated clears. Objective Initial Vital Signs Temp Pulse Resp BP Pulse Ox 97.9 F 83 18 159/105 96 11/22/17 06:51 11/22/17 06:51 11/22/17 06:51 11/22/17 06:51 11/22/17 06:51 - General physical appearance Present: well developed, well nourished, no distress - Abdomen Present: soft (Incisions closed and healing well, minimal abdominal distention) - Labs 11/23/17 04:48 11/23/17 04:48 Diabetes panel 11/23/17 Range/Units 04:48 Sodium 137 (136-145) mEq/L Potassium 3.4 L (3.5-5.1) mEq/L Chloride 103 (98-107) mEq/L Carbon Dioxide 27 (23-29) mEq/L BUN 25 H (6-20) mg/dL Creatinine 1.25 (0.70-1.30) mg/dL Glucose 123 H (70-105) mg/dL Calcium 8.7 (8.6-10.3) mg/dL Calcium panel 11/23/17 Range/Units 04:48 Calcium 8.7 (8.6-10.3) mg/dL Pituitary panel 11/23/17 Range/Units 04:48 Sodium 137 (136-145) mEq/L Potassium 3.4 L (3.5-5.1) mEq/L Chloride 103 (98-107) mEq/L Carbon Dioxide 27 (23-29) mEq/L BUN 25 H (6-20) mg/dL Creatinine 1.25 (0.70-1.30) mg/dL Glucose 123 H (70-105) mg/dL Calcium 8.7 (8.6-10.3) mg/dL Adrenal panel 11/23/17 Range/Units 04:48 Sodium 137 (136-145) mEq/L Potassium 3.4 L (3.5-5.1) mEq/L Chloride 103 (98-107) mEq/L Carbon Dioxide 27 (23-29) mEq/L BUN 25 H (6-20) mg/dL Creatinine 1.25 (0.70-1.30) mg/dL Glucose 123 H (70-105) mg/dL Calcium 8.7 (8.6-10.3) mg/dL - VTE Documentation of Mechanical Device: Intermittent pneumatic compression device Consult Discharge Plan - Plan Referrals: Conner Charles DO [Primary Care Provider] -
[2017-11-23] MEDS: amLODIPine 5 MG TABLET PO SCH ×2 (07:52→09:52)
[2017-11-23] MEDS: *HR* GlipiZIDE 5 MG TABLET PO SCH (07:52)
[2017-11-23] MEDS: Valsartan 160 MG TABLET PO SCH ×2 (07:53→09:52)
[2017-11-23] MEDS: Loratadine 10 MG TABLET PO SCH ×2 (07:53→09:53)
[2017-11-23] MEDS: Gabapentin 300 MG CAPSULE PO SCH ×3 (07:53→21:13)
[2017-11-23] MEDS: Nicotine 21 MG PATCH.TD24 TD SCH (07:54)
[2017-11-23] MEDS: *HR* Metformin 500 MG TABLET PO SCH ×2 (09:52→17:33)
--- NOTE | 2017-11-23 16:30 | Event Note ---
Date of Encounter: 11/23/17 Time of Encounter: 16:28 I evaluated the patient is afternoon. I was called earlier this afternoon secondary to patient developing acute left upper quadrant abdominal discomfort after walking. Patient initially had some difficulty catching his breath but with some rest and with facemask he was able to catch his breath and then was satting 100% on room air. Stat chest x-ray did not reveal any obvious chest infiltrate or pulmonary effusion or pneumothorax. Laboratory values were drawn but were not available upon evaluation. Vital signs seems stable. Patient will remain tonight. I will discuss the patient's current condition with my partner Dr. Leon who is covering this weekend. I plan on also be given the patient a suppository to help with some abdominal distention. I believe that most of the patient's symptoms are related to gastric distention secondary to eating most of his breakfast and lunch.
[2017-11-23] MEDS ORDERED: Milk and Molasses Enema 200 ML RC ONE (16:39)
[2017-11-23 16:50] LABS: Basophils % 0.3 %; Eosinophils # 0.1 K/mcL (0.0-0.6); Eosinophils % 0.4 %; Hematocrit 42.8 % (37.5-50.1); Hemoglobin 14.1 g/dL (12.9-16.9); Lymphocytes # 1.2 K/mcL (0.6-4.6); Lymphocytes % 8.9 %; Mean Corpuscular HGB Conc 32.9 g/dL (31.6-35.5); Mean Corpuscular Hemoglobin 30.7 pg (28.0-33.3); Mean Platelet Volume 10.6 fL (9.4-12.4); Monocytes # 1.5 K/mcL (0.0-1.3); Monocytes % 10.8 %; Neutrophils # 10.5 K/mcL (1.6-8.9); Platelet Count 264 K/mcL (140-400); Red Cell Distribution Width 13.2 % (11.5-14.5); Segmented Neutrophils % 78.6 %
[2017-11-23] MEDS ORDERED: Bisacodyl 10 MG RECTAL SUPPOSITORY RC ONE (17:00)
[2017-11-23 17:07] LABS: BUN/Creatinine Ratio 16 (6-26); Blood Urea Nitrogen 22 mg/dL (6-20); Calcium 9.5 mg/dL (8.6-10.3); Carbon Dioxide 26 mEq/L (23-29); Chloride 103 mEq/L (98-107); Glucose 146 mg/dL (70-105); Osmolality,Calculated 290 (280-300); Potassium 3.5 mEq/L (3.5-5.1); Sodium 137 mEq/L (136-145); eGFR For African Americans > 60 (> 60); eGFR For Non-African Americans 55 (> 60)
[2017-11-23] MEDS: tiZANidine 4 MG TABLET PO SCH (21:13)
[2017-11-24] MEDS: *HR* HYDROcodone/Acet 5/325 mg TABLET PO PRN ×3 (00:28→20:47)
[2017-11-24] MEDS: OXYCODONE Oral CONC 10 MG/0.5 ML ORAL.SYG SL PRN ×3 (04:07→13:58)
[2017-11-24] MEDS: 0.9 % Sodium Chloride 1,000 ML IVC SCH ×2 (08:43→17:37)
[2017-11-24] MEDS: Valsartan 160 MG TABLET PO SCH (08:50)
[2017-11-24] MEDS: *HR* GlipiZIDE 5 MG TABLET PO SCH (08:50)
[2017-11-24] MEDS: Loratadine 10 MG TABLET PO SCH (08:51)
[2017-11-24] MEDS: *HR* Metformin 500 MG TABLET PO SCH ×2 (08:51→17:32)
[2017-11-24] MEDS: Gabapentin 300 MG CAPSULE PO SCH ×2 (08:51→20:47)
[2017-11-24] MEDS: amLODIPine 5 MG TABLET PO SCH (08:52)
[2017-11-24] MEDS: Nicotine 21 MG PATCH.TD24 TD SCH (08:52)
[2017-11-24] MEDS ORDERED: Bisacodyl 10 MG RECTAL SUPPOSITORY RC ONE (10:00)
--- NOTE | 2017-11-24 10:00 | Urology Progress Note ---
Date of Encounter: 11/24/17 Time of Encounter: 09:58 - Assessment and Plan (1) Left renal mass Current Visit: Yes Status: Acute Assessment and plan: Postop day #2 status post left robotic partial nephrectomy. 1. I will advance his diet to regular. 2. We will order a suppository. 3. Continue ambulation. 4. Continue JANNETTE until discharged. 5. If his diet improves today and his pain is well-controlled, we can consider possible DC home later today if he is feeling up to it. Progress Note Narrative: Postop day #2 status post left robotic partial nephrectomy. He is doing better today. He moved his bowels after an enema. He is ambulating well, but he still feels distended. He is tolerating clear liquids. JANNETTE output has been scant. Objective Initial Vital Signs Temp Pulse Resp BP Pulse Ox 97.9 F 83 18 159/105 96 11/22/17 06:51 11/22/17 06:51 11/22/17 06:51 11/22/17 06:51 11/22/17 06:51 - General physical appearance Present: well developed, well nourished, no distress - Respiratory Present: normal respiratory effort - Abdomen Present: distended (Appropriately tender, incisions are clean, dry, intact.) - Labs 11/23/17 16:21 11/23/17 16:21 Diabetes panel 11/23/17 Range/Units 16:21 Sodium 137 (136-145) mEq/L Potassium 3.5 (3.5-5.1) mEq/L Chloride 103 (98-107) mEq/L Carbon Dioxide 26 (23-29) mEq/L BUN 22 H (6-20) mg/dL Creatinine 1.36 H (0.70-1.30) mg/dL Glucose 146 H (70-105) mg/dL Calcium 9.5 (8.6-10.3) mg/dL Calcium panel 11/23/17 Range/Units 16:21 Calcium 9.5 (8.6-10.3) mg/dL Pituitary panel 11/23/17 Range/Units 16:21 Sodium 137 (136-145) mEq/L Potassium 3.5 (3.5-5.1) mEq/L Chloride 103 (98-107) mEq/L Carbon Dioxide 26 (23-29) mEq/L BUN 22 H (6-20) mg/dL Creatinine 1.36 H (0.70-1.30) mg/dL Glucose 146 H (70-105) mg/dL Calcium 9.5 (8.6-10.3) mg/dL Adrenal panel 11/23/17 Range/Units 16:21 Sodium 137 (136-145) mEq/L Potassium 3.5 (3.5-5.1) mEq/L Chloride 103 (98-107) mEq/L Carbon Dioxide 26 (23-29) mEq/L BUN 22 H (6-20) mg/dL Creatinine 1.36 H (0.70-1.30) mg/dL Glucose 146 H (70-105) mg/dL Calcium 9.5 (8.6-10.3) mg/dL - VTE Documentation of Mechanical Device: Intermittent pneumatic compression device Consult Discharge Plan - Plan Referrals: Conner Charles DO [Primary Care Provider] -
[2017-11-24] MEDS: tiZANidine 4 MG TABLET PO SCH (20:47)
[2017-11-25] MEDS: OXYCODONE Oral CONC 10 MG/0.5 ML ORAL.SYG SL PRN ×2 (00:04→08:22)
[2017-11-25] MEDS: 0.9 % Sodium Chloride 1,000 ML IVC SCH (04:10)
[2017-11-25 08:11] VITALS: BP 166/101
[2017-11-25] MEDS: Valsartan 160 MG TABLET PO SCH (08:24)
[2017-11-25] MEDS: Loratadine 10 MG TABLET PO SCH (08:24)
[2017-11-25] MEDS: *HR* GlipiZIDE 5 MG TABLET PO SCH (08:24)
[2017-11-25] MEDS: amLODIPine 5 MG TABLET PO SCH (08:24)
[2017-11-25] MEDS: Gabapentin 300 MG CAPSULE PO SCH (08:24)
[2017-11-25] MEDS: *HR* Metformin 500 MG TABLET PO SCH (08:25)
[2017-11-25] MEDS: Nicotine 21 MG PATCH.TD24 TD SCH (08:25)
--- NOTE | 2017-11-25 10:06 | Discharge Summary ---
Orders not resulted at time of discharge: Pending orders 11/22/17 12:27 Surgical Pathology [PTH] Routine Date of Encounter: 11/25/17 Time of Encounter: 10:04 - Discharge Diagnosis (1) Left renal mass Priority: Primary Status: Acute - Hospital Course Hospital course: Mr. Lowe is a 52 year old male presented with a left renal mass. He underwent a left partial nephrectomy on November 22, 2017. After surgery he had some abdominal distention and increased pain. He had a slow advancement of his diet. On postoperative day #3 he was tolerating general diet. He did have a bowel movement. His pain was well-controlled. JANNETTE creatinine was obtained on the day of discharge and was consistent with serum creatinine. The JANNETTE was removed. - Time Spent with Patient Total time spent providing and/or coordinating discharge services: Less than 30 minutes Labs on day of discharge: Labs from last 24 hours 11/25/17 11/25/17 11/24/17 08:03 08:00 19:52 POC Glucose 112 H 138 H Fluid Creatinine 1.10 11/24/17 11/24/17 16:13 10:58 POC Glucose 98 119 H Fluid Creatinine - Impressions ITS Impressions Chest X-Ray 11/23/17 14:43 IMPRESSION: No acute process. D/ / Chicho Goodwin MD / Chicho Goodwin MD Interpreting Provider: Chicho Goodwin MD - Discharge Medications Prescriptions: Docusate [Colace] 100 mg PO BID #60 capsule Oxycodone HCl/Acetaminophen [Percocet 5-325 mg Tablet] 1 each PO Q6H PRN 7 Days #25 tablet PRN Reason: Pain Home Medications: Aspirin 325 mg PO DAILY 11/22/17 [History] Carvedilol 12.5 mg PO BID 11/22/17 [History] Citalopram Hydrobromide [Celexa] 60 mg PO DAILY 11/22/17 [History] Fexofenadine HCl [Allergy Relief] 180 mg PO DAILY 11/22/17 [History] Gabapentin [Neurontin] 300 mg PO BID 11/22/17 [History] Lansoprazole [Prevacid] 30 mg PO DAILY 11/22/17 [History] Metformin HCl [Metformin HCl ER] 500 mg PO BID 11/22/17 [History] Multivitamin [One Daily Essential] 1 tab PO DAILY 11/22/17 [History] Oxybutynin Chloride [Ditropan Xl] 10 mg PO DAILY 11/22/17 [History] Potassium Chloride [K-Tab ER] 20 meq PO BID 11/22/17 [History] Tamsulosin [Flomax] 0.4 mg PO DAILY 11/22/17 [History] Tizanidine HCl 4 mg PO HS 11/22/17 [History] Triamterene/HCTZ 37.5/25mg [Dyazide] 1 each PO DAILY 11/22/17 [History] Ubidecarenone [Co Q-10] 100 mg PO DAILY 11/22/17 [History] Valsartan [Diovan] 320 mg PO DAILY 11/22/17 [History] Vitamin B Complex Vit C No.4 [Super B Complex] 150 mg PO DAILY 11/22/17 [History ] amLODIPine [Norvasc] 5 mg PO DAILY 11/22/17 [History] glipiZIDE [Glucotrol] 5 mg PO 0800 11/22/17 [History] Docusate [Colace] 100 mg PO BID #60 capsule 11/25/17 [Rx] Oxycodone HCl/Acetaminophen [Percocet 5-325 mg Tablet] 1 each PO Q6H PRN 7 Days #25 tablet 11/25/17 [Rx] Allergies/Adverse Reactions: 3 Allergy/AdvReac Type Severity Reaction Status Date / Time Iodinated Contrast- Oral and Allergy Mild Hives Verified 10/04/17 10:27 IV Dye shellfish derived Allergy Swelling Verified 10/04/17 10:27 of Lip/Tongue/Throat Sulfa (Sulfonamide Allergy Swelling Verified 10/04/17 10:27 Antibiotics) of Lip/Tongue/Throat bees Allergy Swelling Uncoded 05/17/15 18:21 of Lip/Tongue/Throat Date of admission: 11/22/17 14:34 Primary care physician: Alyse Martino Discharging clinician: Ruben Leon Anticipated date of discharge: 11/25/17 Exam Initial Vital Signs Temp Pulse Resp BP Pulse Ox 97.9 F 83 18 159/105 96 11/22/17 06:51 11/22/17 06:51 11/22/17 06:51 11/22/17 06:51 11/22/17 06:51 - General physical appearance Present: well developed, well nourished, no distress - Eyes Absent: icteric - ENT Present: normal nares - Neck Present: trachea midline - Respiratory Present: normal respiratory effort - Cardiovascular Cardiovascular exam IM: RRR - Abdomen Abdomen: Present: soft - Genitourinary normal penis with no external lesions - Integumentary Present: no rash - Neurologic Present: normal coordination - Musculoskeletal Present: normal gait - Patient Status Disposition: Home, Self-Care Condition: Good Functional capacity at discharge: independent ambulation Overall status at discharge: patient is progressing back to baseline - Discharge Instructions Follow Up With: Conner Charles DO [Primary Care Provider] - Additional Instructions: 1. No heavy lifting greater than 20 pounds x4 weeks. 2. No tub baths x2 weeks. 3. May shower. 4. He should follow up in 2 weeks for postoperative check. 5. He should return for any fevers, chills, nausea, vomiting, or significant swelling/ecchymosis. 6. He should contact us for hematuria. - Diet and Activity Activity: increase activity as tolerated Diet: advance to your usual diet - VTE Documentation of Mechanical Device: Intermittent pneumatic compression device
== END 2017-11-25 11:10 | disposition home or self-care (01) | DRG 661 ==
LOC: SAMDAY 06:32 → 3ANU 14:34
PROVIDERS: ADMIT Urology; ATTEND Urology

== ENCOUNTER 2019-08-20 18:33 | Observation (INO) ==
[2019-08-20] MEDS ORDERED: Nitroglycerin 0.4 MG TAB.SUBL SL ONE (19:43)
[2019-08-20 19:53] LABS: Basophils % 0.5 %; Eosinophils # 0.2 K/mcL (0.0-0.6); Eosinophils % 2.4 %; Hematocrit 46.6 % (37.5-50.1); Immature Granulocytes % 0.7 % (0-4); Lymphocytes # 1.4 K/mcL (0.6-4.6); Lymphocytes % 15.4 %; Mean Corpuscular HGB Conc 34.3 g/dL (31.6-35.5); Mean Corpuscular Hemoglobin 30.5 pg (28.0-33.3); Mean Corpuscular Volume 88.9 fL (83.0-100.0); Mean Platelet Volume 10.5 fL (9.4-12.4); Monocytes # 0.9 K/mcL (0.0-1.3); Monocytes % 9.9 %; Neutrophils # 6.3 K/mcL (1.6-8.9); Platelet Count 282 K/mcL (140-400); Red Blood Count 5.24 M/mcL (4.19-5.50); Red Cell Distribution Width 13.2 % (11.5-14.5); Segmented Neutrophils % 71.1 %; White Blood Count 8.9 K/mcL (4.3-11.1)
[2019-08-20 19:57] LABS: Bilirubin,Urine Negative (Negative); Blood,Urine Negative (Negative); Clarity,Urine Clear (Clear); Color,Urine Yellow (Yellow); Glucose,Urine (UA) 250 mg/dL (Normal); Ketones,Urine Negative (Negative); Leukocyte Esterase,Urine Negative (Negative); Nitrite,Urine Negative (Negative); Protein,Urine 100 mg/dL (Neg-Trace); Specific Gravity,Urine 1.023 (1.010-1.025); Urobilinogen,Urine Normal (Normal)
[2019-08-20 20:02] LABS: Bacteria,Urine None Seen per hpf (None-Few); Hyaline Casts,Urine None Seen per lpf (None-Few); RBC,Urine 0-3 per hpf (0-3); Squamous Epithelial Cell,Urine Moderate per lpf (None-Few); WBC,Urine 0-3 per hpf (0-3)
[2019-08-20] MEDS ORDERED: *HR* Labetalol 20 MG/4 ML SYRINGE IVP ONE (20:36)
[2019-08-20 21:00] LABS: Alanine Aminotransferase 37 Units/L (7-52); Albumin 4.1 g/dL (3.5-5.7); Alkaline Phosphatase 107 Units/L (34-104); Aspartate Amino Transferase 26 Units/L (13-39); BUN/Creatinine Ratio 19 (6-26); Bilirubin,Total 0.2 mg/dL (0.3-1.0); Blood Urea Nitrogen 24 mg/dL (6-20); Calcium 9.4 mg/dL (8.6-10.3); Carbon Dioxide 24 mEq/L (23-29); Chloride 103 mEq/L (98-107); Globulin 2.1 g/dL (2.4-3.5); Glucose 203 mg/dL (70-105); Osmolality,Calculated 298 (280-300); Potassium 3.7 mEq/L (3.5-5.1); Sodium 139 mEq/L (136-145); Total Protein 6.2 g/dL (6.4-8.9); eGFR For African Americans > 60 (> 60); eGFR For Non-African Americans 58 (> 60)
[2019-08-20] MEDS ORDERED: Naloxone 0.4 MG/ML INJ IVP PRN (23:00)
[2019-08-20] MEDS ORDERED: D5% in Water 1,000 ML IVC PRN (23:04)
[2019-08-20] MEDS ORDERED: Dextrose Gel 15 GM/37.5 ML TUBE PO PRN ×2 (23:04)
[2019-08-20] MEDS ORDERED: *HR* Dextrose 50 % in Water (Syg) 50 ML SYRINGE IVP PRN (23:04)
[2019-08-21] MEDS: Insulin LISPRO 300 UNITS/3 ML VIAL SQ SCH ×5 (00:31→16:56)
[2019-08-21] MEDS: tiZANidine 4 MG TABLET PO SCH ×2 (01:14→21:14)
[2019-08-21 02:10] LABS: Hematocrit 42.4 % (37.5-50.1); Hemoglobin 14.1 g/dL (12.9-16.9); Mean Corpuscular HGB Conc 33.3 g/dL (31.6-35.5); Mean Corpuscular Hemoglobin 30.7 pg (28.0-33.3); Mean Corpuscular Volume 92.4 fL (83.0-100.0); Mean Platelet Volume 10.4 fL (9.4-12.4); Platelet Count 241 K/mcL (140-400); Red Blood Count 4.59 M/mcL (4.19-5.50); Red Cell Distribution Width 13.3 % (11.5-14.5); White Blood Count 8.9 K/mcL (4.3-11.1)
[2019-08-21 02:29] LABS: Alanine Aminotransferase 35 Units/L (7-52); Albumin 3.9 g/dL (3.5-5.7); Albumin/Globulin Ratio 1.6 (1.1-2.2); Alkaline Phosphatase 98 Units/L (34-104); Aspartate Amino Transferase 21 Units/L (13-39); BUN/Creatinine Ratio 19 (6-26); Bilirubin,Total 0.3 mg/dL (0.3-1.0); Blood Urea Nitrogen 24 mg/dL (6-20); Calcium 9.7 mg/dL (8.6-10.3); Carbon Dioxide 28 mEq/L (23-29); Chloride 106 mEq/L (98-107); Globulin 2.5 g/dL (2.4-3.5); Glucose 149 mg/dL (70-105); Magnesium 2.2 mg/dL (1.6-2.6); Osmolality,Calculated 295 (280-300); Sodium 139 mEq/L (136-145); Total Protein 6.4 g/dL (6.4-8.9); eGFR For African Americans > 60 (> 60); eGFR For Non-African Americans 60 (> 60)
[2019-08-21 08:14] LABS: Troponin I < 0.03 ng/mL (< 0.04)
[2019-08-21 08:47] LABS: Magnesium 2.1 mg/dL (1.6-2.6)
[2019-08-21] MEDS: carvediloL 6.25 MG TABLET PO SCH ×2 (11:14→16:56)
[2019-08-21] MEDS: Valsartan 160 MG TABLET PO SCH (11:14)
[2019-08-21] MEDS: Aspirin 325 MG TABLET PO SCH (11:14)
[2019-08-21] MEDS ORDERED: amLODIPine 5 MG TABLET PO SCH (12:15)
[2019-08-21 15:02] LABS: Estimated Average Glucose 140 mg/dl
[2019-08-21] MEDS ORDERED: *HR* HYDROcodone/Acet 5/325 mg TABLET PO ONE (16:49)
[2019-08-22 06:07] LABS: BUN/Creatinine Ratio 17 (6-26); Blood Urea Nitrogen 21 mg/dL (6-20); Calcium 10.3 mg/dL (8.6-10.3); Carbon Dioxide 26 mEq/L (23-29); Chloride 102 mEq/L (98-107); Glucose 123 mg/dL (70-105); Osmolality,Calculated 294 (280-300); Potassium 3.6 mEq/L (3.5-5.1); Sodium 140 mEq/L (136-145); eGFR For African Americans > 60 (> 60); eGFR For Non-African Americans 59 (> 60)
[2019-08-22] MEDS: Insulin LISPRO 300 UNITS/3 ML VIAL SQ SCH (07:27)
[2019-08-22] MEDS: Valsartan 160 MG TABLET PO SCH (07:41)
[2019-08-22] MEDS: carvediloL 6.25 MG TABLET PO SCH (07:42)
[2019-08-22] MEDS: Aspirin 325 MG TABLET PO SCH (07:43)
[2019-08-22] MEDS ORDERED: amLODIPine 5 MG TABLET PO SCH (09:00)
[2019-08-22 10:53] VITALS: BP 119/86
[2019-08-22] MEDS ORDERED: carvediloL 6.25 MG TABLET PO SCH (17:00)
== END 2019-08-22 11:50 | disposition home or self-care (01) ==
LOC: EMEROOARM 18:33 → 3BNU 18:33
PROVIDERS: ADMIT Internal Medicine; ATTEND Internal Medicine

== ENCOUNTER 2022-03-17 10:55 | Inpatient (IN) ==
[2022-03-17] MEDS ORDERED: methylPREDNISolone 125 MG/2 ML VIAL IVP ONE (11:36)
[2022-03-17 11:45] LABS: Basophils # 0.1 K/mcL (0.0-0.2); Basophils % 0.7 %; Eosinophils # 0.2 K/mcL (0.0-0.6); Eosinophils % 2.2 %; Hematocrit 33.5 % (37.5-50.1); Hemoglobin 10.8 g/dL (12.9-16.9); Immature Granulocytes % 0.3 % (0-4); Lymphocytes # 1.3 K/mcL (0.6-4.6); Mean Corpuscular HGB Conc 32.2 g/dL (31.6-35.5); Mean Corpuscular Hemoglobin 30.3 pg (28.0-33.3); Mean Corpuscular Volume 94.1 fL (83.0-100.0); Mean Platelet Volume 10.9 fL (9.4-12.4); Monocytes # 0.9 K/mcL (0.0-1.3); Monocytes % 9.8 %; Neutrophils # 6.7 K/mcL (1.6-8.9); Platelet Count 307 K/mcL (140-400); Red Blood Count 3.56 M/mcL (4.19-5.50); Red Cell Distribution Width 13.2 % (11.5-14.5); White Blood Count 9.2 K/mcL (4.3-11.1)
[2022-03-17 12:13] LABS: Calcium 9.7 mg/dL (8.6-10.3); Potassium 3.3 mEq/L (3.5-5.1); Troponin I 0.09 ng/mL (< 0.04)
[2022-03-17] MEDS ORDERED: Furosemide 20 MG/2 ML VIAL IVP ONE ×2 (12:47→18:15)
[2022-03-17 14:05] LABS: Influenza A PCR Negative (Negative); Influenza B PCR Negative (Negative); Resp. Syncytial Virus PCR Negative (Negative)
[2022-03-17 14:11] LABS: SARS-CoV-2 by PCR (In House) Negative (Negative)
[2022-03-17] MEDS ORDERED: Acetaminophen 325 MG TABLET PO PRN (14:47)
[2022-03-17] MEDS ORDERED: MOM Conc 10 ML UD.LIQ PO PRN (14:47)
[2022-03-17] MEDS ORDERED: Naloxone 0.4 MG/ML INJ IVP PRN (14:47)
[2022-03-17] MEDS ORDERED: Dextrose Gel 15 GM/37.5 ML TUBE PO PRN ×2 (16:02)
[2022-03-17] MEDS ORDERED: D5% in Water 1,000 ML IVC PRN (16:02)
[2022-03-17] MEDS ORDERED: *HR* Dextrose 50 % in Water (Syg) 50 ML SYRINGE IVP PRN (16:02)
[2022-03-17] MEDS ORDERED: Albumin 25% 25gram/100mL 25 GM/100 ML IV.SOLN IVPB ONE (16:04)
[2022-03-17] MEDS: carvediloL 6.25 MG TABLET PO SCH (18:13)
[2022-03-17] MEDS: Insulin LISPRO 300 UNITS/3 ML VIAL SUBQ SCH ×2 (18:20→20:44)
[2022-03-17] MEDS: amLODIPine 5 MG TABLET PO SCH (18:20)
[2022-03-17 19:59] LABS: Bilirubin,Urine Negative (Negative); Blood,Urine Negative (Negative); Clarity,Urine Clear (Clear); Color,Urine Light-Yellow (Yellow); Glucose,Urine (UA) 500 mg/dL (Normal); Ketones,Urine Negative (Negative); Leukocyte Esterase,Urine Negative (Negative); Mucus,Urine Few per lpf (None-Few); Nitrite,Urine Negative (Negative); Protein,Urine 50 mg/dL (Neg-Trace); RBC,Urine 0-3 per hpf (0-3); Specific Gravity,Urine 1.011 (1.010-1.025); Squamous Epithelial Cell,Urine Few per hpf (None-Few); Urobilinogen,Urine Normal (Normal); WBC,Urine 0-3 per hpf (0-3)
[2022-03-17 20:10] LABS: Sodium, Urine 84.5 mEq/L
[2022-03-17] MEDS: Chlorhexidine Rinse 15 ML MOUTHWASH MM SCH (20:44)
[2022-03-17] MEDS: *HR* Heparin 5,000 UNIT/ML VIAL SQ SCH (20:44)
[2022-03-18 03:24] LABS: Potassium 3.4 mEq/L (3.5-5.1)
[2022-03-18 03:31] LABS: Hematocrit 29.2 % (37.5-50.1); Hemoglobin 9.5 g/dL (12.9-16.9); Mean Corpuscular HGB Conc 32.5 g/dL (31.6-35.5); Mean Corpuscular Hemoglobin 29.9 pg (28.0-33.3); Mean Corpuscular Volume 91.8 fL (83.0-100.0); Mean Platelet Volume 11.3 fL (9.4-12.4); Platelet Count 304 K/mcL (140-400); Red Blood Count 3.18 M/mcL (4.19-5.50); Red Cell Distribution Width 13.2 % (11.5-14.5); White Blood Count 7.8 K/mcL (4.3-11.1)
[2022-03-18] MEDS: *HR* Heparin 5,000 UNIT/ML VIAL SQ SCH ×2 (05:09→14:11)
[2022-03-18] MEDS: carvediloL 6.25 MG TABLET PO SCH ×2 (08:02→16:20)
[2022-03-18] MEDS: Insulin LISPRO 300 UNITS/3 ML VIAL SUBQ SCH ×4 (08:02→22:30)
[2022-03-18] MEDS: Chlorhexidine Rinse 15 ML MOUTHWASH MM SCH (08:02)
[2022-03-18] MEDS: amLODIPine 5 MG TABLET PO SCH (08:02)
[2022-03-18] MEDS: Gabapentin 300 MG CAPSULE PO SCH (14:11)
[2022-03-18] MEDS: Aspirin 325 MG TABLET PO SCH (14:15)
[2022-03-18] MEDS: Albumin 25% 25gram/100mL 25 GM/100 ML IV.SOLN IVPB SCH (16:23)
[2022-03-18] MEDS ORDERED: Nitroglycerin 1 INCH/GM PACKET TP ONE (21:43)
[2022-03-18 21:57] LABS: ABG Base Excess -6 mEq/L (-2 to 3); ABG HCO3 22 mEq/L (21-27); ABG Oxygen Saturation 95 % (95-98); ABG PCO2 56 mmHg (35-45); ABG PH 7.21 pH Units (7.32-7.45); ABG PO2 94 mmHg (85-104); ABG TCO2 24 mEq/L (20-26)
[2022-03-18] MEDS: Furosemide 20 MG/2 ML VIAL IVP SCH (22:05)
[2022-03-19 02:56] LABS: Hematocrit 30.9 % (37.5-50.1); Hemoglobin 9.7 g/dL (12.9-16.9); Mean Corpuscular HGB Conc 31.4 g/dL (31.6-35.5); Mean Corpuscular Hemoglobin 29.8 pg (28.0-33.3); Mean Corpuscular Volume 94.8 fL (83.0-100.0); Platelet Count 302 K/mcL (140-400); Red Blood Count 3.26 M/mcL (4.19-5.50); Red Cell Distribution Width 13.8 % (11.5-14.5)
[2022-03-19 02:58] LABS: White Blood Count 12.7 K/mcL (4.3-11.1)
[2022-03-19 03:12] LABS: Calcium 9.4 mg/dL (8.6-10.3); Potassium 3.9 mEq/L (3.5-5.1)
[2022-03-19] MEDS: Chlorhexidine Rinse 15 ML MOUTHWASH MM SCH ×3 (03:20→20:56)
[2022-03-19] MEDS: tiZANidine 4 MG TABLET PO SCH ×2 (03:20→20:58)
[2022-03-19] MEDS: Gabapentin 300 MG CAPSULE PO SCH ×4 (03:20→21:00)
[2022-03-19] MEDS: Albumin 25% 25gram/100mL 25 GM/100 ML IV.SOLN IVPB SCH ×3 (03:21→18:24)
[2022-03-19] MEDS: *HR* Heparin 5,000 UNIT/ML VIAL SQ SCH ×4 (03:21→20:57)
[2022-03-19] MEDS: Insulin LISPRO 300 UNITS/3 ML VIAL SUBQ SCH ×4 (08:08→20:57)
[2022-03-19] MEDS: Aspirin 325 MG TABLET PO SCH (08:24)
[2022-03-19] MEDS: Furosemide 20 MG/2 ML VIAL IVP SCH (08:24)
[2022-03-19] MEDS: amLODIPine 5 MG TABLET PO SCH (08:25)
[2022-03-19] MEDS: carvediloL 6.25 MG TABLET PO SCH ×2 (08:25→17:29)
[2022-03-19] MEDS ORDERED: Chlorothiazide Sodium 500 MG VIAL IVP ONE (10:24)
[2022-03-19 11:04] LABS: Adenovirus Not Detected (Not Detect); Bordetella Pertussis Not Detected (Not Detect); Chlamydophila pneumoniae Not Detected (Not Detect); Coronavirus 229E Not Detected (Not Detect); Coronavirus HKU1 Not Detected (Not Detect); Coronavirus NL63 Not Detected (Not Detect); Coronavirus OC43 Not Detected (Not Detect); Human Metapneumovirus Not Detected (Not Detect); Human Rhinovirus/Enterovirus Not Detected (Not Detect); Influenza A Subtype 2009 H1 Not Detected (Not Detect); Influenza B Not Detected (Not Detect); Mycoplasma pneumoniae Not Detected (Not Detect); Parainfluenza Virus 1 Not Detected (Not Detect); Parainfluenza Virus 2 Not Detected (Not Detect); Parainfluenza Virus 3 Not Detected (Not Detect); Parainfluenza Virus 4 Not Detected (Not Detect); Respiratory Syncytial Virus Not Detected (Not Detect); SARS-CoV-2 Not Detected (Not Detect)
[2022-03-19] MEDS: Furosemide 40 MG/4 ML VIAL IVP SCH ×2 (11:43→17:23)
[2022-03-19] MEDS ORDERED: Ipratropium/Albuterol Neb 3 ML IH STA (12:17)
[2022-03-19] MEDS ORDERED: methylPREDNISolone 125 MG/2 ML VIAL IVP STA (12:17)
[2022-03-19 12:39] LABS: Bilirubin,Urine Negative (Negative); Blood,Urine Negative (Negative); Clarity,Urine Clear (Clear); Color,Urine Colorless (Yellow); Glucose,Urine (UA) Normal (Normal); Ketones,Urine Negative (Negative); Leukocyte Esterase,Urine Negative (Negative); Mucus,Urine Few per lpf (None-Few); Nitrite,Urine Negative (Negative); Protein,Urine 30 mg/dL (Neg-Trace); RBC,Urine 0-3 per hpf (0-3); Specific Gravity,Urine 1.011 (1.010-1.025); Squamous Epithelial Cell,Urine Few per hpf (None-Few); Urobilinogen,Urine Normal (Normal); WBC,Urine 0-3 per hpf (0-3)
[2022-03-19] MEDS: Cefepime HCl 2,000 MG in 0.9 % Sodium Chloride 10 ML IVP SCH (12:49)
[2022-03-19] MEDS: Azithromycin 500 MG in 0.9 % Sodium Chloride 250 ML IVPB SCH (12:52)
[2022-03-19] MEDS: Ipratropium/Albuterol Neb 3 ML IH SCH ×2 (16:01→20:19)
[2022-03-19] MEDS: MetroNIDAZOLE 500 MG/100 ML 500 MG/100 ML BAG IVPB SCH ×2 (17:20→23:18)
[2022-03-19] MEDS: MethylPREDNISolone 40 MG/ML VIAL IVP SCH (17:23)
[2022-03-19] MEDS ORDERED: Cefepime HCl 1,000 MG in 0.9 % Sodium Chloride 10 ML IVP SCH (18:00)
[2022-03-20] MEDS: Ipratropium/Albuterol Neb 3 ML IH SCH ×7 (00:09→23:46)
[2022-03-20] MEDS: Albumin 25% 25gram/100mL 25 GM/100 ML IV.SOLN IVPB SCH ×3 (00:48→15:12)
[2022-03-20] MEDS: Cefepime HCl 2,000 MG in 0.9 % Sodium Chloride 10 ML IVP SCH ×3 (00:48→23:18)
[2022-03-20 04:05] LABS: Hematocrit 29.6 % (37.5-50.1); Hemoglobin 9.4 g/dL (12.9-16.9); Immature Granulocytes % 0.4 % (0-4); Lymphocytes # 0.5 K/mcL (0.6-4.6); Lymphocytes % 7.2 %; Mean Corpuscular HGB Conc 31.8 g/dL (31.6-35.5); Mean Corpuscular Hemoglobin 29.8 pg (28.0-33.3); Mean Platelet Volume 11.5 fL (9.4-12.4); Monocytes # 0.2 K/mcL (0.0-1.3); Monocytes % 2.5 %; Neutrophils # 6.4 K/mcL (1.6-8.9); Platelet Count 240 K/mcL (140-400); Red Blood Count 3.15 M/mcL (4.19-5.50); Red Cell Distribution Width 13.6 % (11.5-14.5); Segmented Neutrophils % 89.9 %; White Blood Count 7.1 K/mcL (4.3-11.1)
[2022-03-20 05:22] LABS: Calcium 10.4 mg/dL (8.6-10.3); Potassium 3.4 mEq/L (3.5-5.1)
[2022-03-20] MEDS: MethylPREDNISolone 40 MG/ML VIAL IVP SCH ×2 (05:33→17:12)
[2022-03-20] MEDS: *HR* Heparin 5,000 UNIT/ML VIAL SQ SCH ×3 (05:33→20:15)
[2022-03-20] MEDS: Chlorhexidine Rinse 15 ML MOUTHWASH MM SCH ×2 (08:14→20:15)
[2022-03-20] MEDS: Furosemide 40 MG/4 ML VIAL IVP SCH ×2 (08:14→17:13)
[2022-03-20] MEDS: amLODIPine 5 MG TABLET PO SCH (08:15)
[2022-03-20] MEDS: Aspirin 325 MG TABLET PO SCH (08:15)
[2022-03-20] MEDS: carvediloL 6.25 MG TABLET PO SCH ×2 (08:15→17:12)
[2022-03-20] MEDS: Gabapentin 300 MG CAPSULE PO SCH ×3 (08:15→20:15)
[2022-03-20] MEDS: Insulin LISPRO 300 UNITS/3 ML VIAL SUBQ SCH ×4 (08:15→20:27)
[2022-03-20] MEDS: MetroNIDAZOLE 500 MG/100 ML 500 MG/100 ML BAG IVPB SCH ×3 (08:16→23:26)
[2022-03-20] MEDS ORDERED: Chlorothiazide Sodium 500 MG VIAL IVP ONE (11:17)
[2022-03-20] MEDS: Azithromycin 500 MG in 0.9 % Sodium Chloride 250 ML IVPB SCH (13:07)
[2022-03-20] MEDS ORDERED: Water for inj. (sterile) 10 ML ONE (13:08)
[2022-03-20] MEDS: tiZANidine 4 MG TABLET PO SCH (20:15)
[2022-03-21] MEDS: Albumin 25% 25gram/100mL 25 GM/100 ML IV.SOLN IVPB SCH ×3 (00:38→17:59)
[2022-03-21] MEDS: Ipratropium/Albuterol Neb 3 ML IH SCH ×2 (03:55→07:39)
[2022-03-21] MEDS: *HR* Heparin 5,000 UNIT/ML VIAL SQ SCH ×3 (05:20→19:45)
[2022-03-21] MEDS: MethylPREDNISolone 40 MG/ML VIAL IVP SCH (05:21)
[2022-03-21 06:11] LABS: Basophils % 0.1 %; Hematocrit 28.9 % (37.5-50.1); Hemoglobin 9.3 g/dL (12.9-16.9); Immature Granulocytes % 0.4 % (0-4); Lymphocytes # 0.7 K/mcL (0.6-4.6); Lymphocytes % 6.4 %; Mean Corpuscular HGB Conc 32.2 g/dL (31.6-35.5); Mean Corpuscular Hemoglobin 29.7 pg (28.0-33.3); Mean Corpuscular Volume 92.3 fL (83.0-100.0); Mean Platelet Volume 11.6 fL (9.4-12.4); Monocytes # 0.7 K/mcL (0.0-1.3); Monocytes % 6.6 %; Neutrophils # 9.6 K/mcL (1.6-8.9); Platelet Count 244 K/mcL (140-400); Red Blood Count 3.13 M/mcL (4.19-5.50); Red Cell Distribution Width 13.5 % (11.5-14.5); Segmented Neutrophils % 86.5 %
[2022-03-21 06:15] LABS: White Blood Count 11.1 K/mcL (4.3-11.1)
[2022-03-21 06:52] LABS: Calcium 10.9 mg/dL (8.6-10.3); Potassium 2.9 mEq/L (3.5-5.1)
[2022-03-21] MEDS: MetroNIDAZOLE 500 MG/100 ML 500 MG/100 ML BAG IVPB SCH (09:39)
[2022-03-21] MEDS: Aspirin 325 MG TABLET PO SCH (09:44)
[2022-03-21] MEDS: carvediloL 6.25 MG TABLET PO SCH ×2 (09:45→17:04)
[2022-03-21] MEDS: amLODIPine 5 MG TABLET PO SCH (09:45)
[2022-03-21] MEDS: Gabapentin 300 MG CAPSULE PO SCH (09:45)
[2022-03-21] MEDS: Chlorhexidine Rinse 15 ML MOUTHWASH MM SCH (09:46)
[2022-03-21] MEDS: Insulin LISPRO 300 UNITS/3 ML VIAL SUBQ SCH ×4 (09:47→21:23)
[2022-03-21] MEDS ORDERED: Saline Nasal Spray 44 ML BOTTLE NS PRN (09:54)
[2022-03-21] MEDS: Furosemide 40 MG/4 ML VIAL IVP SCH (10:05)
[2022-03-21] MEDS: Aspirin Enteric Coated 81 MG Tablet PO SCH (11:20)
[2022-03-21] MEDS: Furosemide 20 MG/2 ML VIAL IVP SCH ×2 (11:52→19:45)
[2022-03-21] MEDS: Cefepime HCl 2,000 MG in 0.9 % Sodium Chloride 10 ML IVP SCH (11:53)
[2022-03-21 12:47] LABS: % Iron Saturation 18 % (20-55); Iron 50 mcg/dL (65-175); Transferrin 202 mg/dL (203-362)
[2022-03-21 13:02] LABS: Ferritin 151 ng/mL (20-250)
[2022-03-21] MEDS: Azithromycin 500 MG in 0.9 % Sodium Chloride 250 ML IVPB SCH (13:06)
[2022-03-21] MEDS: metroNIDAZOLE 500 MG TABLET PO SCH ×2 (15:35→19:45)
[2022-03-21] MEDS: Gabapentin 100 MG CAPSULE PO SCH ×2 (15:35→19:45)
[2022-03-21] MEDS: Sennosides/Docusate Sodium TABLET PO SCH (15:37)
[2022-03-21] MEDS: tiZANidine 4 MG TABLET PO SCH (19:46)
[2022-03-21] MEDS: Ipratropium/Albuterol Neb 3 ML IH PRN (21:12)
[2022-03-21] MEDS ORDERED: Albuterol 2.5 MG/3 ML NEBULIZER ONE (23:33)
[2022-03-21] MEDS ORDERED: Albuterol 2.5 MG/3 ML NEBULIZER IH PRN (23:37)
[2022-03-22] MEDS: Cefepime HCl 1,000 MG in 0.9 % Sodium Chloride Mini Bag 100 ML IVPB SCH ×2 (00:43→13:17)
[2022-03-22] MEDS: Albumin 25% 25gram/100mL 25 GM/100 ML IV.SOLN IVPB SCH ×3 (01:17→15:53)
[2022-03-22] MEDS: Ipratropium/Albuterol Neb 3 ML IH PRN ×2 (04:25→10:34)
[2022-03-22 05:12] LABS: Basophils % 0.1 %; Eosinophils % 0.1 %; Hematocrit 28.4 % (37.5-50.1); Hemoglobin 9.4 g/dL (12.9-16.9); Immature Granulocytes % 0.5 % (0-4); Lymphocytes # 1.4 K/mcL (0.6-4.6); Lymphocytes % 12.5 %; Mean Corpuscular HGB Conc 33.1 g/dL (31.6-35.5); Mean Corpuscular Hemoglobin 30.7 pg (28.0-33.3); Mean Corpuscular Volume 92.8 fL (83.0-100.0); Mean Platelet Volume 11.8 fL (9.4-12.4); Monocytes # 1.1 K/mcL (0.0-1.3); Monocytes % 10.3 %; Neutrophils # 8.5 K/mcL (1.6-8.9); Platelet Count 217 K/mcL (140-400); Red Blood Count 3.06 M/mcL (4.19-5.50); Red Cell Distribution Width 13.7 % (11.5-14.5); Segmented Neutrophils % 76.5 %; White Blood Count 11.1 K/mcL (4.3-11.1)
[2022-03-22 05:51] LABS: Calcium 11.3 mg/dL (8.6-10.3); Potassium 3.3 mEq/L (3.5-5.1)
[2022-03-22] MEDS: *HR* Heparin 5,000 UNIT/ML VIAL SQ SCH ×3 (06:05→21:48)
[2022-03-22] MEDS: Insulin LISPRO 300 UNITS/3 ML VIAL SUBQ SCH ×4 (08:58→21:41)
[2022-03-22] MEDS: Gabapentin 100 MG CAPSULE PO SCH ×3 (09:32→21:41)
[2022-03-22] MEDS: carvediloL 6.25 MG TABLET PO SCH ×2 (09:32→18:53)
[2022-03-22] MEDS: Sennosides/Docusate Sodium TABLET PO SCH (09:33)
[2022-03-22] MEDS: amLODIPine 5 MG TABLET PO SCH (09:33)
[2022-03-22] MEDS: Aspirin Enteric Coated 81 MG Tablet PO SCH (09:33)
[2022-03-22] MEDS: metroNIDAZOLE 500 MG TABLET PO SCH ×3 (09:33→21:41)
[2022-03-22] MEDS: Furosemide 20 MG/2 ML VIAL IVP SCH ×2 (09:34→21:43)
[2022-03-22] MEDS ORDERED: Furosemide 40 MG/4 ML VIAL IVP ONE (10:46)
[2022-03-22 10:54] LABS: ABG Base Excess 1 mEq/L (-2 to 3); ABG HCO3 25 mEq/L (21-27); ABG Oxygen Saturation 91 % (95-98); ABG PCO2 37 mmHg (35-45); ABG PH 7.43 pH Units (7.32-7.45); ABG PO2 59 mmHg (85-104); ABG TCO2 26 mEq/L (20-26)
[2022-03-22] MEDS: Azithromycin 250 MG TABLET PO SCH (10:55)
[2022-03-22] MEDS ORDERED: Heparin 1,000 UNITS/500 mL 500 ML ONE (11:49)
[2022-03-22] MEDS ORDERED: *HR* Heparin 5,000 UNIT/ML VIAL ONE (12:37)
[2022-03-22] MEDS ORDERED: *HR* Heparin 10,000 UNIT/10 ML VIAL IV PRN (13:27)
[2022-03-22] MEDS ORDERED: 0.9 % Sodium Chloride 250 ML IVC PRN (13:27)
[2022-03-22] MEDS ORDERED: 0.9 % Sodium Chloride 2,000 ML PRIME SCH (13:30)
[2022-03-22 15:25] LABS: Hepatitis B Surface Antibody < 3.10 mIU/mL
[2022-03-22 15:36] LABS: Hepatitis B Surface Antigen Nonreactive (Nonreactive)
[2022-03-22] MEDS: Saline Nasal Spray 44 ML BOTTLE NS SCH ×5 (18:47→23:04)
[2022-03-22] MEDS: tiZANidine 4 MG TABLET PO SCH (21:41)
[2022-03-23] MEDS: Cefepime HCl 1,000 MG in 0.9 % Sodium Chloride Mini Bag 100 ML IVPB SCH (00:26)
[2022-03-23] MEDS: Saline Nasal Spray 44 ML BOTTLE NS SCH ×9 (00:27→21:23)
[2022-03-23] MEDS: Albumin 25% 25gram/100mL 25 GM/100 ML IV.SOLN IVPB SCH ×2 (00:50→08:11)
[2022-03-23 01:53] LABS: Hemoglobin 9.4 g/dL (12.9-16.9); Mean Corpuscular HGB Conc 32.4 g/dL (31.6-35.5); Mean Corpuscular Hemoglobin 30.1 pg (28.0-33.3); Mean Corpuscular Volume 92.9 fL (83.0-100.0); Mean Platelet Volume 11.8 fL (9.4-12.4); Platelet Count 203 K/mcL (140-400); Red Blood Count 3.12 M/mcL (4.19-5.50); Red Cell Distribution Width 13.7 % (11.5-14.5); White Blood Count 9.5 K/mcL (4.3-11.1)
[2022-03-23 02:13] LABS: Calcium 9.9 mg/dL (8.6-10.3); Magnesium 1.9 mg/dL (1.6-2.6); Potassium 3.2 mEq/L (3.5-5.1)
[2022-03-23] MEDS: *HR* Heparin 5,000 UNIT/ML VIAL SQ SCH ×3 (06:08→21:13)
[2022-03-23] MEDS: Aspirin Enteric Coated 81 MG Tablet PO SCH (08:10)
[2022-03-23] MEDS: Gabapentin 100 MG CAPSULE PO SCH ×3 (08:10→21:14)
[2022-03-23] MEDS: Sennosides/Docusate Sodium TABLET PO SCH (08:10)
[2022-03-23] MEDS: Furosemide 20 MG/2 ML VIAL IVP SCH ×2 (08:11→21:14)
[2022-03-23] MEDS: Insulin LISPRO 300 UNITS/3 ML VIAL SUBQ SCH ×4 (08:12→21:17)
[2022-03-23] MEDS ORDERED: 0.9 % Sodium Chloride 250 ML IVC PRN (08:37)
[2022-03-23] MEDS ORDERED: *HR* Heparin 10,000 UNIT/10 ML VIAL IV PRN (08:37)
[2022-03-23] MEDS: metroNIDAZOLE 500 MG TABLET PO SCH ×3 (11:31→21:14)
[2022-03-23] MEDS: carvediloL 6.25 MG TABLET PO SCH ×2 (11:31→15:53)
[2022-03-23] MEDS ORDERED: Magnesium Sulfate 1 GM/102 ML PIGGYBACK IVPB ONE (11:46)
[2022-03-23] MEDS: Azithromycin 250 MG TABLET PO SCH (12:17)
[2022-03-23] MEDS: amLODIPine 5 MG TABLET PO SCH (15:59)
[2022-03-23] MEDS: tiZANidine 4 MG TABLET PO SCH (21:14)
[2022-03-24] MEDS ORDERED: Cefepime HCl 1,000 MG in 0.9 % Sodium Chloride Mini Bag 100 ML IVPB SCH
[2022-03-24] MEDS: Saline Nasal Spray 44 ML BOTTLE NS SCH ×10 (00:10→20:17)
[2022-03-24 02:41] LABS: Basophils % 0.3 %; Eosinophils # 0.3 K/mcL (0.0-0.6); Eosinophils % 3.2 %; Hematocrit 30.5 % (37.5-50.1); Hemoglobin 9.7 g/dL (12.9-16.9); Immature Granulocytes % 0.5 % (0-4); Lymphocytes # 1.4 K/mcL (0.6-4.6); Lymphocytes % 16.5 %; Mean Corpuscular HGB Conc 31.8 g/dL (31.6-35.5); Mean Corpuscular Volume 94.4 fL (83.0-100.0); Mean Platelet Volume 12.1 fL (9.4-12.4); Monocytes % 11.9 %; Neutrophils # 5.8 K/mcL (1.6-8.9); Platelet Count 186 K/mcL (140-400); Red Blood Count 3.23 M/mcL (4.19-5.50); Red Cell Distribution Width 13.6 % (11.5-14.5); Segmented Neutrophils % 67.6 %; White Blood Count 8.7 K/mcL (4.3-11.1)
[2022-03-24 02:59] LABS: Calcium 10.5 mg/dL (8.6-10.3); Potassium 3.2 mEq/L (3.5-5.1)
[2022-03-24] MEDS: *HR* Heparin 5,000 UNIT/ML VIAL SQ SCH ×3 (05:57→20:17)
[2022-03-24] MEDS: Insulin LISPRO 300 UNITS/3 ML VIAL SUBQ SCH ×4 (05:57→20:18)
[2022-03-24] MEDS: Sennosides/Docusate Sodium TABLET PO SCH (08:20)
[2022-03-24] MEDS: metroNIDAZOLE 500 MG TABLET PO SCH (08:20)
[2022-03-24] MEDS: Aspirin Enteric Coated 81 MG Tablet PO SCH (08:21)
[2022-03-24] MEDS: amLODIPine 5 MG TABLET PO SCH (08:21)
[2022-03-24] MEDS: Furosemide 20 MG/2 ML VIAL IVP SCH ×2 (08:21→20:17)
[2022-03-24] MEDS: carvediloL 6.25 MG TABLET PO SCH ×2 (08:21→16:27)
[2022-03-24] MEDS: Gabapentin 100 MG CAPSULE PO SCH ×3 (08:21→20:17)
[2022-03-24] MEDS ORDERED: 0.9 % Sodium Chloride 250 ML IVC PRN (08:34)
[2022-03-24] MEDS ORDERED: *HR* Heparin 10,000 UNIT/10 ML VIAL IV PRN (08:34)
[2022-03-24] MEDS: Amoxicillin/Clavulanate 500 MG TABLET PO SCH (16:27)
[2022-03-24] MEDS: tiZANidine 4 MG TABLET PO SCH (20:18)
[2022-03-25] MEDS: Saline Nasal Spray 44 ML BOTTLE NS SCH ×8 (03:51→21:56)
[2022-03-25 04:12] LABS: Basophils % 0.2 %; Eosinophils # 0.3 K/mcL (0.0-0.6); Eosinophils % 2.4 %; Hematocrit 30.9 % (37.5-50.1); Hemoglobin 9.9 g/dL (12.9-16.9); Immature Granulocytes % 0.4 % (0-4); Mean Corpuscular Hemoglobin 30.2 pg (28.0-33.3); Mean Corpuscular Volume 94.2 fL (83.0-100.0); Mean Platelet Volume 12.1 fL (9.4-12.4); Monocytes # 1.7 K/mcL (0.0-1.3); Monocytes % 12.4 %; Platelet Count 212 K/mcL (140-400); Red Blood Count 3.28 M/mcL (4.19-5.50); Red Cell Distribution Width 13.5 % (11.5-14.5); Segmented Neutrophils % 77.6 %
[2022-03-25 04:15] LABS: Neutrophils # 10.6 K/mcL (1.6-8.9); White Blood Count 13.6 K/mcL (4.3-11.1)
[2022-03-25 04:23] LABS: Calcium 10.1 mg/dL (8.6-10.3)
[2022-03-25] MEDS: *HR* Heparin 5,000 UNIT/ML VIAL SQ SCH ×3 (06:07→20:28)
[2022-03-25] MEDS: Insulin LISPRO 300 UNITS/3 ML VIAL SUBQ SCH ×4 (09:26→20:29)
[2022-03-25] MEDS: Sennosides/Docusate Sodium TABLET PO SCH (09:27)
[2022-03-25] MEDS: carvediloL 6.25 MG TABLET PO SCH ×2 (09:27→17:56)
[2022-03-25] MEDS: Aspirin Enteric Coated 81 MG Tablet PO SCH (09:27)
[2022-03-25] MEDS: Gabapentin 100 MG CAPSULE PO SCH ×3 (09:27→20:27)
[2022-03-25] MEDS: amLODIPine 5 MG TABLET PO SCH (09:27)
[2022-03-25] MEDS: Amoxicillin/Clavulanate 500 MG TABLET PO SCH ×2 (09:27→17:56)
[2022-03-25] MEDS: Furosemide 20 MG/2 ML VIAL IVP SCH ×2 (09:28→17:56)
[2022-03-25] MEDS: tiZANidine 4 MG TABLET PO SCH (20:28)
[2022-03-26] MEDS: Saline Nasal Spray 44 ML BOTTLE NS SCH ×10 (00:30→21:40)
[2022-03-26 04:13] LABS: Calcium 10.2 mg/dL (8.6-10.3); Potassium 4.1 mEq/L (3.5-5.1)
[2022-03-26] MEDS: *HR* Heparin 5,000 UNIT/ML VIAL SQ SCH ×3 (05:33→20:38)
[2022-03-26 09:25] LABS: Basophils % 0.2 %; Eosinophils # 0.2 K/mcL (0.0-0.6); Eosinophils % 1.8 %; Hematocrit 29.7 % (37.5-50.1); Hemoglobin 9.7 g/dL (12.9-16.9); Immature Granulocytes % 0.6 % (0-4); Lymphocytes # 0.9 K/mcL (0.6-4.6); Lymphocytes % 8.2 %; Mean Corpuscular HGB Conc 32.7 g/dL (31.6-35.5); Mean Corpuscular Hemoglobin 30.3 pg (28.0-33.3); Mean Corpuscular Volume 92.8 fL (83.0-100.0); Mean Platelet Volume 11.5 fL (9.4-12.4); Monocytes # 1.3 K/mcL (0.0-1.3); Monocytes % 12.4 %; Neutrophils # 8.2 K/mcL (1.6-8.9); Platelet Count 199 K/mcL (140-400); Red Cell Distribution Width 13.7 % (11.5-14.5); Segmented Neutrophils % 76.8 %; White Blood Count 10.6 K/mcL (4.3-11.1)
[2022-03-26] MEDS: Insulin LISPRO 300 UNITS/3 ML VIAL SUBQ SCH ×4 (09:32→20:43)
[2022-03-26] MEDS: Furosemide 20 MG/2 ML VIAL IVP SCH (09:33)
[2022-03-26] MEDS: Gabapentin 100 MG CAPSULE PO SCH ×3 (09:42→20:38)
[2022-03-26] MEDS: Sennosides/Docusate Sodium TABLET PO SCH (09:42)
[2022-03-26] MEDS: carvediloL 6.25 MG TABLET PO SCH ×2 (09:42→17:32)
[2022-03-26] MEDS: Aspirin Enteric Coated 81 MG Tablet PO SCH (09:42)
[2022-03-26] MEDS: amLODIPine 5 MG TABLET PO SCH (09:42)
[2022-03-26] MEDS: Amoxicillin/Clavulanate 500 MG TABLET PO SCH ×2 (09:42→17:33)
[2022-03-26] MEDS: tiZANidine 4 MG TABLET PO SCH (20:38)
[2022-03-27] MEDS: Saline Nasal Spray 44 ML BOTTLE NS SCH ×4 (03:12→10:01)
[2022-03-27] MEDS: *HR* Heparin 5,000 UNIT/ML VIAL SQ SCH ×3 (05:31→20:56)
[2022-03-27 06:02] LABS: Basophils % 0.3 %; Eosinophils # 0.2 K/mcL (0.0-0.6); Eosinophils % 3.1 %; Hematocrit 24.2 % (37.5-50.1); Hemoglobin 7.6 g/dL (12.9-16.9); Immature Granulocytes % 0.6 % (0-4); Lymphocytes # 0.9 K/mcL (0.6-4.6); Lymphocytes % 12.9 %; Mean Corpuscular HGB Conc 31.4 g/dL (31.6-35.5); Mean Corpuscular Hemoglobin 29.7 pg (28.0-33.3); Mean Corpuscular Volume 94.5 fL (83.0-100.0); Mean Platelet Volume 12.1 fL (9.4-12.4); Monocytes # 0.9 K/mcL (0.0-1.3); Monocytes % 13.4 %; Neutrophils # 4.9 K/mcL (1.6-8.9); Platelet Count 188 K/mcL (140-400); Red Blood Count 2.56 M/mcL (4.19-5.50); Red Cell Distribution Width 13.6 % (11.5-14.5); Segmented Neutrophils % 69.7 %
[2022-03-27 06:35] LABS: Calcium 10.2 mg/dL (8.6-10.3); Potassium 3.6 mEq/L (3.5-5.1)
[2022-03-27] MEDS: Insulin LISPRO 300 UNITS/3 ML VIAL SUBQ SCH ×4 (07:07→21:07)
[2022-03-27] MEDS: Gabapentin 100 MG CAPSULE PO SCH ×3 (10:01→20:55)
[2022-03-27] MEDS: Aspirin Enteric Coated 81 MG Tablet PO SCH (10:01)
[2022-03-27] MEDS: Amoxicillin/Clavulanate 500 MG TABLET PO SCH ×2 (10:01→16:56)
[2022-03-27] MEDS: Sennosides/Docusate Sodium TABLET PO SCH (10:01)
[2022-03-27] MEDS: carvediloL 6.25 MG TABLET PO SCH ×2 (10:02→16:27)
[2022-03-27] MEDS: amLODIPine 5 MG TABLET PO SCH (10:02)
[2022-03-27] MEDS ORDERED: Saline Nasal Spray 44 ML BOTTLE NS PRN (10:30)
[2022-03-27] MEDS ORDERED: Lidocaine Viscous Oral Soln 15 ML SOLUTION MM PRN (10:47)
[2022-03-27] MEDS ORDERED: 0.9 % Sodium Chloride 500 ML IVC ONE (10:48)
[2022-03-27 10:54] LABS: Hematocrit 27.5 % (37.5-50.1); Hemoglobin 8.9 g/dL (12.9-16.9)
[2022-03-27] MEDS: *HR* Midazolam HCl 5 MG/5 ML VIAL IVP PRN ×2 (11:20→11:25)
[2022-03-27] MEDS: *HR* FentaNYL (PF) 100 MCG/2 ML VIAL IVP PRN ×2 (11:20→11:25)
[2022-03-27] MEDS ORDERED: Iopamidol - 370 500 ML MLS IVP ONE (12:01)
[2022-03-27] MEDS ORDERED: methylPREDNISolone 125 MG/2 ML VIAL IVP ONE (12:21)
[2022-03-27 12:50] LABS: Bacteria,Urine Few per hpf (None-Few); Bilirubin,Urine Negative (Negative); Blood,Urine Trace (Negative); Clarity,Urine Clear (Clear); Color,Urine Light-Yellow (Yellow); Glucose,Urine (UA) 30 mg/dL (Normal); Hyaline Casts,Urine Few per lpf (None Seen); Ketones,Urine Negative (Negative); Leukocyte Esterase,Urine Negative (Negative); Mucus,Urine Few per lpf (None-Few); Nitrite,Urine Negative (Negative); Protein,Urine 100 mg/dL (Neg-Trace); RBC,Urine 0-3 per hpf (0-3); Specific Gravity,Urine 1.017 (1.010-1.025); Urobilinogen,Urine Normal (Normal); WBC,Urine 0-3 per hpf (0-3)
[2022-03-27] MEDS: *HR* Metoprolol 5 MG/5 ML VIAL IVP PRN (13:24)
[2022-03-27] MEDS ORDERED: *HR* Heparin 5,000 UNIT/ML VIAL IVP PRN ×2 (14:49)
[2022-03-27] MEDS ORDERED: Heparin 25,000UNIT/250ML 1/2NS 25,000 UNIT/250 ML IV.SOLN IVC SCH (15:00)
[2022-03-27 15:46] LABS: Basophils % 0.3 %; Eosinophils # 0.1 K/mcL (0.0-0.6); Eosinophils % 1.2 %; Hematocrit 29.6 % (37.5-50.1); Hemoglobin 9.6 g/dL (12.9-16.9); Immature Granulocytes % 0.5 % (0-4); Lymphocytes # 0.4 K/mcL (0.6-4.6); Lymphocytes % 3.6 %; Mean Corpuscular HGB Conc 32.4 g/dL (31.6-35.5); Mean Corpuscular Hemoglobin 30.4 pg (28.0-33.3); Mean Corpuscular Volume 93.7 fL (83.0-100.0); Mean Platelet Volume 11.6 fL (9.4-12.4); Monocytes # 0.4 K/mcL (0.0-1.3); Monocytes % 3.7 %; Neutrophils # 8.8 K/mcL (1.6-8.9); Platelet Count 207 K/mcL (140-400); Red Blood Count 3.16 M/mcL (4.19-5.50); Red Cell Distribution Width 13.7 % (11.5-14.5); Segmented Neutrophils % 90.7 %; White Blood Count 9.7 K/mcL (4.3-11.1)
[2022-03-27 15:57] LABS: INR 1.2; Prothrombin Time 13.8 Seconds (9.4-12.1)
[2022-03-27 15:59] LABS: Activated Partial Thrombo Time 28.8 Seconds (26.0-36.0)
[2022-03-27 16:00] LABS: Heparin anti-factor XA UFH < 0.04 IU/mL (0.30-0.70)
[2022-03-27] MEDS: Chlorhexidine Rinse 15 ML MOUTHWASH MM SCH ×2 (16:27→20:55)
[2022-03-27 16:29] LABS: Estimated Average Glucose 140 mg/dl; Hemoglobin A1C 6.5 %
[2022-03-27] MEDS: tiZANidine 4 MG TABLET PO SCH (20:56)
[2022-03-28 04:32] LABS: Hematocrit 26.4 % (37.5-50.1); Hemoglobin 8.4 g/dL (12.9-16.9); Immature Granulocytes % 0.7 % (0-4); Lymphocytes # 0.4 K/mcL (0.6-4.6); Lymphocytes % 8.2 %; Mean Corpuscular HGB Conc 31.8 g/dL (31.6-35.5); Mean Corpuscular Hemoglobin 29.6 pg (28.0-33.3); Monocytes # 0.3 K/mcL (0.0-1.3); Monocytes % 5.4 %; Platelet Count 221 K/mcL (140-400); Red Blood Count 2.84 M/mcL (4.19-5.50); Red Cell Distribution Width 13.4 % (11.5-14.5); Segmented Neutrophils % 85.7 %
[2022-03-28 04:33] LABS: Neutrophils # 3.9 K/mcL (1.6-8.9); White Blood Count 4.6 K/mcL (4.3-11.1)
[2022-03-28 04:52] LABS: Calcium 10.5 mg/dL (8.6-10.3); Potassium 4.5 mEq/L (3.5-5.1)
[2022-03-28] MEDS ORDERED: Vancomycin 1,250 MG/262.5 ML IV.SOLN IVPB ONE (06:00)
[2022-03-28] MEDS: *HR* Heparin 5,000 UNIT/ML VIAL SQ SCH ×3 (06:04→20:51)
[2022-03-28] MEDS: Aspirin Enteric Coated 81 MG Tablet PO SCH (06:04)
[2022-03-28] MEDS ORDERED: *HR* Midazolam HCl 5 MG/5 ML VIAL IVP ONE ×2 (06:56→15:52)
[2022-03-28] MEDS ORDERED: *HR* FentaNYL (PF) 1,000 MCG/20 ML VIAL ONE (06:56)
[2022-03-28] MEDS ORDERED: *HR* Propofol 200 MG/20 ML VIAL IVP ONE (06:56)
[2022-03-28] MEDS ORDERED: Lidocaine 2% Syringe 100 MG/5 ML ONE (06:57)
[2022-03-28] MEDS ORDERED: Famotidine 20 MG/2 ML VIAL ONE (06:57)
[2022-03-28] MEDS ORDERED: *HR* Rocuronium Bromide 50 MG/5 ML VIAL ONE ×5 (06:57→17:14)
[2022-03-28] MEDS ORDERED: *HR* Magnesium Sulfate 1 GM/2 ML VIAL ONE (06:57)
[2022-03-28] MEDS ORDERED: niCARdipine 20 MG/200 ML MLS IVC ONE (07:05)
[2022-03-28] MEDS: carvediloL 6.25 MG TABLET PO SCH ×2 (07:37→17:03)
[2022-03-28] MEDS ORDERED: Heparin 15,000 UNIT in 0.9 % Sodium Chloride 500 ML IR ONE (08:00)
[2022-03-28] MEDS ORDERED: Buckersberg's Blood Cardioplegia PF ONE (08:00)
[2022-03-28] MEDS ORDERED: del Nido Cardioplegia Solution PF ONE ×2 (08:00)
[2022-03-28] MEDS ORDERED: Chlorhexidine Rinse 15 ML MOUTHWASH MM ONE (08:00)
[2022-03-28] MEDS ORDERED: Norepinephrine 4 MG in 0.9 % Sodium Chloride 250 ML IVC PRN (08:00)
[2022-03-28 08:17] LABS: ABG Base Excess -6 mEq/L (-2 to 3); ABG Chloride 108 mEq/L (98-107); ABG Glucose 168 mg/dL (60-95); ABG HCO3 21 mEq/L (21-27); ABG Ionized Calcium 1.45 mmol/L (1.15-1.35); ABG Oxygen Saturation 100 % (95-98); ABG PCO2 45 mmHg (35-45); ABG PH 7.27 pH Units (7.32-7.45); ABG PO2 197 mmHg (85-104); ABG TCO2 22 mEq/L (20-26)
[2022-03-28] MEDS ORDERED: ceFAZolin 2,000 MG in Water for inj. (sterile) 20 ML IVP ONE (08:53)
[2022-03-28 09:24] LABS: ABG Base Excess -6 mEq/L (-2 to 3); ABG Chloride 107 mEq/L (98-107); ABG Glucose 170 mg/dL (60-95); ABG HCO3 20 mEq/L (21-27); ABG Ionized Calcium 1.35 mmol/L (1.15-1.35); ABG Oxygen Saturation 98 % (95-98); ABG PCO2 37 mmHg (35-45); ABG PH 7.33 pH Units (7.32-7.45); ABG PO2 110 mmHg (85-104); ABG TCO2 21 mEq/L (20-26)
[2022-03-28] MEDS ORDERED: Protamine Sulfate 250 MG/25 ML VIAL IVP ONE (10:08)
[2022-03-28] MEDS ORDERED: Calcium Gluconate 1,000 MG/10 ML VIAL ONE (10:09)
[2022-03-28 10:20] LABS: ABG Base Excess -2 mEq/L (-2 to 3); ABG Chloride 107 mEq/L (98-107); ABG Glucose 147 mg/dL (60-95); ABG HCO3 23 mEq/L (21-27); ABG Ionized Calcium 1.35 mmol/L (1.15-1.35); ABG Oxygen Saturation 100 % (95-98); ABG PCO2 38 mmHg (35-45); ABG PH 7.39 pH Units (7.32-7.45); ABG PO2 538 mmHg (85-104); ABG TCO2 24 mEq/L (20-26)
[2022-03-28 10:50] LABS: ABG Base Excess -3 mEq/L (-2 to 3); ABG Chloride 108 mEq/L (98-107); ABG Glucose 171 mg/dL (60-95); ABG HCO3 22 mEq/L (21-27); ABG Ionized Calcium 1.36 mmol/L (1.15-1.35); ABG Oxygen Saturation 100 % (95-98); ABG PCO2 36 mmHg (35-45); ABG PO2 534 mmHg (85-104); ABG TCO2 23 mEq/L (20-26)
[2022-03-28 11:13] LABS: ABG Base Excess -2 mEq/L (-2 to 3); ABG Chloride 108 mEq/L (98-107); ABG Glucose 156 mg/dL (60-95); ABG HCO3 23 mEq/L (21-27); ABG Ionized Calcium 1.28 mmol/L (1.15-1.35); ABG Oxygen Saturation 100 % (95-98); ABG PCO2 39 mmHg (35-45); ABG PH 7.38 pH Units (7.32-7.45); ABG PO2 439 mmHg (85-104); ABG TCO2 24 mEq/L (20-26)
[2022-03-28] MEDS ORDERED: Albumin Human 5% 50.0 GM/1,000 ML IV.SOLN ONE (11:36)
[2022-03-28] MEDS ORDERED: Protamine Sulfate 50 MG/5 ML VIAL IVP ONE (11:45)
[2022-03-28 12:03] LABS: ABG Base Excess -6 mEq/L (-2 to 3); ABG Chloride 109 mEq/L (98-107); ABG Glucose 192 mg/dL (60-95); ABG HCO3 20 mEq/L (21-27); ABG Ionized Calcium 1.48 mmol/L (1.15-1.35); ABG Oxygen Saturation 96 % (95-98); ABG PCO2 42 mmHg (35-45); ABG PO2 89 mmHg (85-104); ABG TCO2 22 mEq/L (20-26)
[2022-03-28] MEDS ORDERED: ceFAZolin 1,000 MG in Water for inj. (sterile) 10 ML IVP ONE (12:08)
[2022-03-28 12:30] LABS: ABG Base Excess -6 mEq/L (-2 to 3); ABG Chloride 110 mEq/L (98-107); ABG Glucose 200 mg/dL (60-95); ABG HCO3 21 mEq/L (21-27); ABG Oxygen Saturation 100 % (95-98); ABG PCO2 47 mmHg (35-45); ABG PH 7.27 pH Units (7.32-7.45); ABG PO2 199 mmHg (85-104); ABG TCO2 23 mEq/L (20-26)
[2022-03-28] MEDS ORDERED: Ondansetron 4 MG/2 ML VIAL IVP PRN (13:03)
[2022-03-28] MEDS ORDERED: *HR* Promethazine 25 MG/ML VIAL IM PRN (13:03)
[2022-03-28 13:22] LABS: ABG Base Excess -4 mEq/L (-2 to 3); ABG HCO3 23 mEq/L (21-27); ABG Oxygen Saturation 92 % (95-98); ABG PCO2 49 mmHg (35-45); ABG PH 7.27 pH Units (7.32-7.45); ABG PO2 73 mmHg (85-104); ABG TCO2 24 mEq/L (20-26); Blood Gas Modality ASSIST CONTROL; Blood Gas VT 550 cc
[2022-03-28 13:29] LABS: Basophils % 0.1 %; Eosinophils % 0.1 %; Hematocrit 26.1 % (37.5-50.1); Hemoglobin 8.6 g/dL (12.9-16.9); Immature Granulocytes % 1.3 % (0-4); Lymphocytes # 0.6 K/mcL (0.6-4.6); Mean Corpuscular Hemoglobin 30.3 pg (28.0-33.3); Mean Corpuscular Volume 91.9 fL (83.0-100.0); Mean Platelet Volume 11.4 fL (9.4-12.4); Monocytes # 2.3 K/mcL (0.0-1.3); Monocytes % 10.9 %; Platelet Count 148 K/mcL (140-400); Red Blood Count 2.84 M/mcL (4.19-5.50); Red Cell Distribution Width 13.9 % (11.5-14.5); Segmented Neutrophils % 84.6 %
[2022-03-28 13:30] LABS: Neutrophils # 17.9 K/mcL (1.6-8.9); White Blood Count 21.2 K/mcL (4.3-11.1)
[2022-03-28] MEDS: Albumin Human 5% 12.5 GM/250 ML IV.SOLN IVPB PRN ×6 (13:30→15:55)
[2022-03-28] MEDS: Ipratropium/Albuterol Neb 3 ML IH PRN (13:30)
[2022-03-28 13:37] LABS: INR 1.4; Prothrombin Time 15.7 Seconds (9.4-12.1)
[2022-03-28] MEDS ORDERED: Insulin Regular, Human 100 UNIT/ML IV PRN (13:55)
[2022-03-28] MEDS: *HR* FentaNYL (PF) 100 MCG/2 ML VIAL IVP PRN ×2 (14:30→18:46)
[2022-03-28] MEDS: *HR* OxyCODONE/APAP 5/325 TABLET PO PRN ×2 (14:30→18:47)
[2022-03-28 14:32] LABS: ABG Base Excess -1 mEq/L (-2 to 3); ABG Chloride 106 mEq/L (98-107); ABG Glucose 149 mg/dL (60-95); ABG HCO3 24 mEq/L (21-27); ABG Ionized Calcium 1.31 mmol/L (1.15-1.35); ABG PCO2 41 mmHg (35-45); ABG PH 7.37 pH Units (7.32-7.45); ABG PO2 > 630 mmHg (85-104); ABG TCO2 25 mEq/L (20-26)
[2022-03-28] MEDS: DOBUTamine 1,000 MG/250 ML BAG IVC SCH (15:00)
[2022-03-28] MEDS ORDERED: Mannitol 25% vial 12.5 GM/50 ML VIAL IVPB ONE (15:10)
[2022-03-28] MEDS ORDERED: Albumin Human 25% 25 GM/100 ML IV.SOLN IVPB ONE (15:10)
[2022-03-28] MEDS ORDERED: *HR* Magnesium Sulfate 2 GM/50 ML PIGGYBACK IVPB ONE (15:10)
[2022-03-28] MEDS ORDERED: Lidocaine 2% Syringe 100 MG/5 ML IVP ONE (15:10)
[2022-03-28] MEDS ORDERED: Heparin 1,000 UNITS/500 mL IV.SOLN IR ONE (15:10)
[2022-03-28] MEDS ORDERED: *HR* Heparin 10,000 UNIT/10 ML VIAL IR ONE (15:10)
[2022-03-28] MEDS ORDERED: Tranexamic Acid 1,000 MG/10 ML VIAL IR ONE (15:10)
[2022-03-28] MEDS ORDERED: *HR* Phenylephrine 10 MG/ML VIAL IVC ONE (15:10)
[2022-03-28] MEDS ORDERED: D5% in Water 250 ML IV BAG IV ONE (15:10)
[2022-03-28 15:36] LABS: ABG Base Excess -4 mEq/L (-2 to 3); ABG HCO3 22 mEq/L (21-27); ABG Oxygen Saturation 97 % (95-98); ABG PCO2 43 mmHg (35-45); ABG PH 7.33 pH Units (7.32-7.45); ABG PO2 95 mmHg (85-104); ABG TCO2 24 mEq/L (20-26); Blood Gas Modality ASSIST CONTROL; Blood Gas VT 550 cc
[2022-03-28] MEDS ORDERED: *HR* FentaNYL (PF) 250 MCG/5 ML VIAL ONE (15:52)
[2022-03-28] MEDS: CeFAZolin 2 GM/120 ML BAG IVPB SCH (16:06)
[2022-03-28 16:38] LABS: ABG Base Excess -1 mEq/L (-2 to 3); ABG Chloride 109 mEq/L (98-107); ABG Glucose 152 mg/dL (60-95); ABG HCO3 24 mEq/L (21-27); ABG Ionized Calcium 1.37 mmol/L (1.15-1.35); ABG Oxygen Saturation 99 % (95-98); ABG PCO2 40 mmHg (35-45); ABG PH 7.38 pH Units (7.32-7.45); ABG PO2 141 mmHg (85-104); ABG TCO2 25 mEq/L (20-26)
[2022-03-28] MEDS: Amoxicillin/Clavulanate 500 MG TABLET PO SCH ×2 (17:02→18:47)
[2022-03-28] MEDS: Insulin LISPRO 300 UNITS/3 ML VIAL SUBQ SCH ×4 (17:02→20:51)
[2022-03-28] MEDS: Sennosides/Docusate Sodium TABLET PO SCH (17:03)
[2022-03-28] MEDS: Gabapentin 100 MG CAPSULE PO SCH ×3 (17:03→20:51)
[2022-03-28] MEDS: amLODIPine 5 MG TABLET PO SCH (17:03)
[2022-03-28] MEDS: Norepinephrine 4 MG/254 ML IV.SOLN IVC SCH (17:07)
[2022-03-28 17:39] LABS: ABG Base Excess -4 mEq/L (-2 to 3); ABG Chloride 112 mEq/L (98-107); ABG Glucose 153 mg/dL (60-95); ABG HCO3 21 mEq/L (21-27); ABG Ionized Calcium 1.26 mmol/L (1.15-1.35); ABG Oxygen Saturation 96 % (95-98); ABG PCO2 37 mmHg (35-45); ABG PH 7.36 pH Units (7.32-7.45); ABG PO2 85 mmHg (85-104); ABG TCO2 22 mEq/L (20-26)
[2022-03-28 18:30] LABS: Hematocrit 22.6 % (37.5-50.1); Hemoglobin 7.7 g/dL (12.9-16.9); Mean Corpuscular HGB Conc 34.1 g/dL (31.6-35.5); Mean Corpuscular Hemoglobin 30.8 pg (28.0-33.3); Mean Corpuscular Volume 90.4 fL (83.0-100.0); Mean Platelet Volume 11.6 fL (9.4-12.4); Platelet Count 111 K/mcL (140-400); Red Cell Distribution Width 14.4 % (11.5-14.5); White Blood Count 13.8 K/mcL (4.3-11.1)
[2022-03-28 18:32] LABS: ABG Base Excess -3 mEq/L (-2 to 3); ABG HCO3 23 mEq/L (21-27); ABG Oxygen Saturation 85 % (95-98); ABG PCO2 40 mmHg (35-45); ABG PH 7.36 pH Units (7.32-7.45); ABG PO2 52 mmHg (85-104); ABG TCO2 24 mEq/L (20-26); Blood Gas VT 550 cc
[2022-03-28 18:36] LABS: INR 1.4; Prothrombin Time 15.6 Seconds (9.4-12.1)
[2022-03-28 18:39] LABS: Activated Partial Thrombo Time 38.9 Seconds (26.0-36.0)
[2022-03-28 18:44] LABS: Albumin 3.5 g/dL (3.5-5.7); Albumin/Globulin Ratio 2.5 (1.1-2.2); Bilirubin,Total 0.5 mg/dL (0.3-1.0); Globulin 1.4 g/dL (2.4-3.5); Magnesium 2.9 mg/dL (1.6-2.6); Potassium 4.6 mEq/L (3.5-5.1); Total Protein 4.9 g/dL (6.4-8.9)
[2022-03-28] MEDS: Ketorolac 30 MG/ML VIAL IVP SCH (18:47)
[2022-03-28] MEDS ORDERED: Artificial Tears SOLN 15 ML BOTTLE BOTH EYES PRN (18:55)
[2022-03-28] MEDS: FentaNYL (PF) 1,000 MCG/100 ML IV.SOLN IVC SCH (19:30)
[2022-03-28] MEDS ORDERED: 0.9 % Sodium Chloride 500 ML ONE (19:38)
[2022-03-28] MEDS ORDERED: 0.9 % Sodium Chloride 250 ML ONE (20:21)
[2022-03-28] MEDS: tiZANidine 4 MG TABLET PO SCH (20:50)
[2022-03-28] MEDS: Chlorhexidine Rinse 15 ML MOUTHWASH MM SCH (20:53)
[2022-03-28] MEDS: Artificial Tears SOLN 15 ML BOTTLE BOTH EYES SCH (20:53)
[2022-03-28] MEDS ORDERED: Chlorhexidine Rinse 15 ML MOUTHWASH MM SCH (21:00)
[2022-03-28 22:25] LABS: ABG Base Excess -3 mEq/L (-2 to 3); ABG HCO3 22 mEq/L (21-27); ABG Oxygen Saturation 97 % (95-98); ABG PCO2 40 mmHg (35-45); ABG PH 7.36 pH Units (7.32-7.45); ABG PO2 96 mmHg (85-104); ABG TCO2 24 mEq/L (20-26); Blood Gas Modality AF; Blood Gas VT 550 cc
[2022-03-29 00:05] LABS: Basophils % 0.1 %; Hematocrit 24.7 % (37.5-50.1); Hemoglobin 8.3 g/dL (12.9-16.9); Immature Granulocytes % 0.9 % (0-4); Lymphocytes # 0.7 K/mcL (0.6-4.6); Lymphocytes % 5.3 %; Mean Corpuscular HGB Conc 33.6 g/dL (31.6-35.5); Mean Corpuscular Hemoglobin 29.5 pg (28.0-33.3); Mean Corpuscular Volume 87.9 fL (83.0-100.0); Mean Platelet Volume 11.4 fL (9.4-12.4); Monocytes # 1.8 K/mcL (0.0-1.3); Monocytes % 13.1 %; Neutrophils # 11.1 K/mcL (1.6-8.9); Platelet Count 148 K/mcL (140-400); Red Blood Count 2.81 M/mcL (4.19-5.50); Red Cell Distribution Width 15.4 % (11.5-14.5); Segmented Neutrophils % 80.6 %; White Blood Count 13.8 K/mcL (4.3-11.1)
[2022-03-29] MEDS: Artificial Tears SOLN 15 ML BOTTLE BOTH EYES SCH ×4 (00:06→10:08)
[2022-03-29] MEDS: CeFAZolin 2 GM/120 ML BAG IVPB SCH (00:06)
[2022-03-29] MEDS: Ketorolac 30 MG/ML VIAL IVP SCH (00:09)
[2022-03-29 03:33] LABS: ABG Base Excess -2 mEq/L (-2 to 3); ABG HCO3 23 mEq/L (21-27); ABG Oxygen Saturation 96 % (95-98); ABG PCO2 41 mmHg (35-45); ABG PH 7.36 pH Units (7.32-7.45); ABG PO2 85 mmHg (85-104); ABG TCO2 24 mEq/L (20-26); Blood Gas Modality AF; Blood Gas VT 550 cc
[2022-03-29] MEDS: Norepinephrine 4 MG/254 ML IV.SOLN IVC SCH ×2 (04:07→05:40)
[2022-03-29 04:36] LABS: Basophils % 0.1 %; Hematocrit 25.1 % (37.5-50.1); Hemoglobin 8.3 g/dL (12.9-16.9); Immature Granulocytes % 0.7 % (0-4); Lymphocytes # 0.7 K/mcL (0.6-4.6); Lymphocytes % 5.8 %; Mean Corpuscular HGB Conc 33.1 g/dL (31.6-35.5); Mean Corpuscular Hemoglobin 29.2 pg (28.0-33.3); Mean Corpuscular Volume 88.4 fL (83.0-100.0); Mean Platelet Volume 11.6 fL (9.4-12.4); Monocytes # 1.8 K/mcL (0.0-1.3); Monocytes % 15.2 %; Neutrophils # 9.5 K/mcL (1.6-8.9); Platelet Count 149 K/mcL (140-400); Red Blood Count 2.84 M/mcL (4.19-5.50); Red Cell Distribution Width 15.7 % (11.5-14.5); Segmented Neutrophils % 78.2 %; White Blood Count 12.1 K/mcL (4.3-11.1)
[2022-03-29 04:49] LABS: INR 1.3; Prothrombin Time 14.6 Seconds (9.4-12.1)
[2022-03-29 04:58] LABS: Calcium 9.4 mg/dL (8.6-10.3); Magnesium 2.8 mg/dL (1.6-2.6); Potassium 4.5 mEq/L (3.5-5.1)
[2022-03-29 05:34] LABS: ABG Base Excess -3 mEq/L (-2 to 3); ABG HCO3 23 mEq/L (21-27); ABG Oxygen Saturation 93 % (95-98); ABG PCO2 41 mmHg (35-45); ABG PH 7.35 pH Units (7.32-7.45); ABG PO2 72 mmHg (85-104); ABG TCO2 24 mEq/L (20-26); Blood Gas Modality AF; Blood Gas VT 550 cc
[2022-03-29] MEDS: FentaNYL (PF) 1,000 MCG/100 ML IV.SOLN IVC SCH (05:37)
[2022-03-29] MEDS: *HR* Heparin 5,000 UNIT/ML VIAL SQ SCH ×3 (05:38→20:21)
[2022-03-29] MEDS: Insulin LISPRO 300 UNITS/3 ML VIAL SUBQ SCH ×4 (05:38→20:23)
[2022-03-29] MEDS: *HR* OxyCODONE/APAP 5/325 TABLET PO PRN (06:08)
[2022-03-29] MEDS: Aspirin Enteric Coated 81 MG Tablet PO SCH (07:11)
[2022-03-29] MEDS: Chlorhexidine Rinse 15 ML MOUTHWASH MM SCH ×2 (07:29→20:21)
[2022-03-29] MEDS: Sennosides/Docusate Sodium TABLET PO SCH (07:30)
[2022-03-29] MEDS: amLODIPine 5 MG TABLET PO SCH (07:30)
[2022-03-29] MEDS: Gabapentin 100 MG CAPSULE PO SCH ×3 (07:30→20:23)
[2022-03-29] MEDS: carvediloL 6.25 MG TABLET PO SCH ×2 (07:30→16:32)
[2022-03-29 07:35] LABS: ABG Base Excess -2 mEq/L (-2 to 3); ABG HCO3 23 mEq/L (21-27); ABG Oxygen Saturation 94 % (95-98); ABG PCO2 42 mmHg (35-45); ABG PH 7.35 pH Units (7.32-7.45); ABG PO2 75 mmHg (85-104); ABG TCO2 24 mEq/L (20-26); Blood Gas Modality CPAP/PS; Blood Gas Pressure Support 5 cm H2O
[2022-03-29] MEDS ORDERED: DilTIAZem 50 MG/50 ML IV.SOLN IVC SCH (08:00)
[2022-03-29] MEDS: niCARdipine 20 MG/200 ML MLS IVC SCH ×5 (08:42→21:15)
[2022-03-29 09:27] LABS: ABG Base Excess -3 mEq/L (-2 to 3); ABG HCO3 24 mEq/L (21-27); ABG Oxygen Saturation 93 % (95-98); ABG PCO2 46 mmHg (35-45); ABG PH 7.32 pH Units (7.32-7.45); ABG PO2 74 mmHg (85-104); ABG TCO2 25 mEq/L (20-26)
[2022-03-29] MEDS: *HR* FentaNYL (PF) 100 MCG/2 ML VIAL IVP PRN ×4 (09:58→21:08)
[2022-03-29] MEDS: Furosemide 40 MG/4 ML VIAL IVP SCH ×2 (10:35→20:21)
[2022-03-29] MEDS: DOBUTamine 1,000 MG/250 ML BAG IVC SCH (13:13)
[2022-03-29 14:06] LABS: ABG Base Excess -2 mEq/L (-2 to 3); ABG HCO3 23 mEq/L (21-27); ABG Oxygen Saturation 96 % (95-98); ABG PCO2 40 mmHg (35-45); ABG PH 7.38 pH Units (7.32-7.45); ABG PO2 87 mmHg (85-104); ABG TCO2 24 mEq/L (20-26)
[2022-03-29] MEDS ORDERED: *HR* Heparin 5,000 UNIT/ML VIAL IVP PRN (14:23)
[2022-03-29] MEDS ORDERED: 0.9 % Sodium Chloride 1,000 ML PRIME ONE ×2 (14:23)
[2022-03-29] MEDS ORDERED: *HR* Alteplase (Cathflo) 2 MG VIAL IVP PRN (14:23)
[2022-03-29] MEDS ORDERED: 0.9 % Sodium Chloride 1,000 ML PRIME SCH (14:30)
[2022-03-29] MEDS: PrismaSATE BGK 4/2.5 5,000 ML CRRT SCH ×5 (15:47→20:22)
[2022-03-29] MEDS: niCARdipine 20 MG CAPSULE PO SCH (18:45)
[2022-03-29] MEDS: tiZANidine 4 MG TABLET PO SCH (20:23)
[2022-03-30] MEDS: niCARdipine 20 MG/200 ML MLS IVC SCH ×6 (01:10→21:21)
[2022-03-30] MEDS: PrismaSATE BGK 4/2.5 5,000 ML CRRT SCH ×11 (01:19→19:57)
[2022-03-30 03:51] LABS: VBG Ionized Calcium 1.32 mmol/L (1.15-1.35)
[2022-03-30 03:56] LABS: Basophils % 0.1 %; Hematocrit 26.6 % (37.5-50.1); Hemoglobin 8.7 g/dL (12.9-16.9); Immature Granulocytes % 0.6 % (0-4); Lymphocytes # 0.6 K/mcL (0.6-4.6); Lymphocytes % 4.5 %; Mean Corpuscular HGB Conc 32.7 g/dL (31.6-35.5); Mean Corpuscular Hemoglobin 29.6 pg (28.0-33.3); Mean Corpuscular Volume 90.5 fL (83.0-100.0); Neutrophils # 11.4 K/mcL (1.6-8.9); Platelet Count 132 K/mcL (140-400); Red Blood Count 2.94 M/mcL (4.19-5.50); Red Cell Distribution Width 15.9 % (11.5-14.5); Segmented Neutrophils % 80.8 %; White Blood Count 14.1 K/mcL (4.3-11.1)
[2022-03-30 04:02] LABS: INR 1.3; Prothrombin Time 14.5 Seconds (9.4-12.1)
[2022-03-30 04:13] LABS: Albumin 3.9 g/dL (3.5-5.7); Bilirubin,Direct 0.2 mg/dL (0.0-0.2); Bilirubin,Indirect 0.5 mg/dL (0.0-1.0); Bilirubin,Total 0.7 mg/dL (0.3-1.0); Calcium 9.8 mg/dL (8.6-10.3); Magnesium 2.4 mg/dL (1.6-2.6); Phosphorous 3.4 mg/dL (2.7-4.5); Potassium 4.1 mEq/L (3.5-5.1); Total Protein 5.9 g/dL (6.4-8.9)
[2022-03-30] MEDS: *HR* FentaNYL (PF) 100 MCG/2 ML VIAL IVP PRN ×3 (06:12→19:56)
[2022-03-30] MEDS: *HR* Heparin 5,000 UNIT/ML VIAL SQ SCH ×3 (06:12→20:29)
[2022-03-30] MEDS: Chlorhexidine Rinse 15 ML MOUTHWASH MM SCH ×2 (07:27→20:29)
[2022-03-30] MEDS: Insulin LISPRO 300 UNITS/3 ML VIAL SUBQ SCH ×4 (07:27→20:23)
[2022-03-30] MEDS: Furosemide 40 MG/4 ML VIAL IVP SCH ×2 (07:27→20:28)
[2022-03-30] MEDS: niCARdipine 20 MG CAPSULE PO SCH ×2 (07:28→20:28)
[2022-03-30] MEDS: carvediloL 6.25 MG TABLET PO SCH ×2 (07:28→16:20)
[2022-03-30] MEDS: Gabapentin 100 MG CAPSULE PO SCH ×3 (07:28→20:28)
[2022-03-30] MEDS: Sennosides/Docusate Sodium TABLET PO SCH (07:28)
[2022-03-30] MEDS: Aspirin Enteric Coated 81 MG Tablet PO SCH (07:28)
[2022-03-30] MEDS: amLODIPine 5 MG TABLET PO SCH (07:28)
[2022-03-30] MEDS: *HR* OxyCODONE/APAP 5/325 TABLET PO PRN ×2 (11:26→16:20)
[2022-03-30] MEDS: tiZANidine 4 MG TABLET PO SCH (20:28)
[2022-03-30] MEDS: Norepinephrine 4 MG/254 ML IV.SOLN IVC SCH (22:32)
[2022-03-30] MEDS: Albumin Human 5% 12.5 GM/250 ML IV.SOLN IVPB PRN (23:46)
[2022-03-31] MEDS: Albumin Human 5% 12.5 GM/250 ML IV.SOLN IVPB PRN ×2 (00:08→13:36)
[2022-03-31] MEDS: niCARdipine 20 MG/200 ML MLS IVC SCH ×3 (00:10→19:46)
[2022-03-31] MEDS: PrismaSATE BGK 4/2.5 5,000 ML CRRT SCH ×6 (01:08→15:45)
[2022-03-31 04:05] LABS: VBG Ionized Calcium 1.32 mmol/L (1.15-1.35)
[2022-03-31 04:14] LABS: Albumin 4.5 g/dL (3.5-5.7); Albumin/Globulin Ratio 1.9 (1.1-2.2); Bilirubin,Direct 0.2 mg/dL (0.0-0.2); Bilirubin,Indirect 0.6 mg/dL (0.0-1.0); Bilirubin,Total 0.8 mg/dL (0.3-1.0); Globulin 2.4 g/dL (2.4-3.5); Magnesium 2.7 mg/dL (1.6-2.6); Total Protein 6.9 g/dL (6.4-8.9)
[2022-03-31 04:16] LABS: Calcium 10.4 mg/dL (8.6-10.3); Potassium 4.3 mEq/L (3.5-5.1)
[2022-03-31 04:18] LABS: Basophils % 0.1 %; Eosinophils % 0.3 %; Hematocrit 26.4 % (37.5-50.1); Hemoglobin 8.6 g/dL (12.9-16.9); Immature Granulocytes % 1.1 % (0-4); Lymphocytes # 1.1 K/mcL (0.6-4.6); Lymphocytes % 6.9 %; Mean Corpuscular HGB Conc 32.6 g/dL (31.6-35.5); Mean Corpuscular Hemoglobin 29.8 pg (28.0-33.3); Mean Corpuscular Volume 91.3 fL (83.0-100.0); Mean Platelet Volume 11.5 fL (9.4-12.4); Monocytes # 1.9 K/mcL (0.0-1.3); Monocytes % 11.9 %; Neutrophils # 12.6 K/mcL (1.6-8.9); Platelet Count 144 K/mcL (140-400); Red Blood Count 2.89 M/mcL (4.19-5.50); Red Cell Distribution Width 15.3 % (11.5-14.5); Segmented Neutrophils % 79.7 %; White Blood Count 15.8 K/mcL (4.3-11.1)
[2022-03-31 04:23] LABS: INR 1.4; Prothrombin Time 15.4 Seconds (9.4-12.1)
[2022-03-31] MEDS: *HR* Heparin 5,000 UNIT/ML VIAL SQ SCH (05:01)
[2022-03-31] MEDS: Insulin LISPRO 300 UNITS/3 ML VIAL SUBQ SCH ×4 (08:00→20:46)
[2022-03-31] MEDS: amLODIPine 5 MG TABLET PO SCH (09:28)
[2022-03-31] MEDS ORDERED: Warfarin perPT PO PRN (09:28)
[2022-03-31] MEDS: carvediloL 6.25 MG TABLET PO SCH ×2 (09:28→17:27)
[2022-03-31] MEDS: Aspirin Enteric Coated 81 MG Tablet PO SCH (09:29)
[2022-03-31] MEDS: Sennosides/Docusate Sodium TABLET PO SCH (09:29)
[2022-03-31] MEDS: Gabapentin 100 MG CAPSULE PO SCH ×3 (09:29→20:01)
[2022-03-31] MEDS: Chlorhexidine Rinse 15 ML MOUTHWASH MM SCH ×2 (09:29→20:01)
[2022-03-31] MEDS: Furosemide 40 MG/4 ML VIAL IVP SCH ×2 (09:30→10:06)
[2022-03-31] MEDS: niCARdipine 20 MG CAPSULE PO SCH (09:33)
[2022-03-31] MEDS: Heparin 25,000UNIT/250ML 1/2NS 25,000 UNIT/250 ML IV.SOLN IVC SCH (09:33)
[2022-03-31] MEDS: *HR* OxyCODONE/APAP 5/325 TABLET PO PRN (15:15)
[2022-03-31] MEDS ORDERED: *HR* Warfarin 3 MG TABLET PO ONE (18:00)
[2022-03-31] MEDS: Norepinephrine 4 MG/254 ML IV.SOLN IVC SCH (19:34)
[2022-03-31] MEDS: tiZANidine 4 MG TABLET PO SCH (20:01)
[2022-03-31] MEDS ORDERED: Albumin Human 5% 12.5 GM/250 ML IV.SOLN IVC SCH (21:45)
[2022-04-01] MEDS: *HR* OxyCODONE/APAP 5/325 TABLET PO PRN ×3 (02:33→19:37)
[2022-04-01] MEDS: PrismaSATE BGK 4/2.5 5,000 ML CRRT SCH ×3 (03:19→08:19)
[2022-04-01] MEDS: *HR* FentaNYL (PF) 100 MCG/2 ML VIAL IVP PRN (05:20)
[2022-04-01] MEDS: Sennosides/Docusate Sodium TABLET PO SCH (08:37)
[2022-04-01] MEDS: carvediloL 6.25 MG TABLET PO SCH ×2 (08:37→16:53)
[2022-04-01] MEDS: Gabapentin 100 MG CAPSULE PO SCH ×3 (08:38→19:37)
[2022-04-01] MEDS: Chlorhexidine Rinse 15 ML MOUTHWASH MM SCH ×2 (08:38→19:38)
[2022-04-01] MEDS: Aspirin Enteric Coated 81 MG Tablet PO SCH (08:38)
[2022-04-01] MEDS: Insulin LISPRO 300 UNITS/3 ML VIAL SUBQ SCH ×4 (08:39→16:53)
[2022-04-01 08:47] LABS: Basophils # 0.1 K/mcL (0.0-0.2); Basophils % 0.3 %; Eosinophils # 0.2 K/mcL (0.0-0.6); Eosinophils % 1.1 %; Hematocrit 30.9 % (37.5-50.1); Immature Granulocytes % 1.7 % (0-4); Lymphocytes # 1.5 K/mcL (0.6-4.6); Lymphocytes % 7.1 %; Mean Corpuscular HGB Conc 32.4 g/dL (31.6-35.5); Mean Corpuscular Hemoglobin 29.9 pg (28.0-33.3); Mean Corpuscular Volume 92.2 fL (83.0-100.0); Mean Platelet Volume 11.7 fL (9.4-12.4); Monocytes # 2.1 K/mcL (0.0-1.3); Monocytes % 9.6 %; Neutrophils # 17.3 K/mcL (1.6-8.9); Platelet Count 259 K/mcL (140-400); Red Blood Count 3.35 M/mcL (4.19-5.50); Segmented Neutrophils % 80.2 %; White Blood Count 21.6 K/mcL (4.3-11.1)
[2022-04-01 09:33] LABS: VBG Ionized Calcium 1.31 mmol/L (1.15-1.35)
[2022-04-01 09:41] LABS: INR 1.4; Prothrombin Time 15.8 Seconds (9.4-12.1)
[2022-04-01 09:49] LABS: Calcium 11.3 mg/dL (8.6-10.3); Potassium 4.4 mEq/L (3.5-5.1)
[2022-04-01 09:50] LABS: Albumin 5.4 g/dL (3.5-5.7); Albumin/Globulin Ratio 1.6 (1.1-2.2); Bilirubin,Direct 0.2 mg/dL (0.0-0.2); Bilirubin,Indirect 0.6 mg/dL (0.0-1.0); Bilirubin,Total 0.8 mg/dL (0.3-1.0); Globulin 3.3 g/dL (2.4-3.5); Magnesium 2.8 mg/dL (1.6-2.6); Phosphorous 3.2 mg/dL (2.7-4.5); Total Protein 8.7 g/dL (6.4-8.9)
[2022-04-01] MEDS: Heparin 25,000UNIT/250ML 1/2NS 25,000 UNIT/250 ML IV.SOLN IVC SCH (10:36)
[2022-04-01] MEDS: Norepinephrine 4 MG/254 ML IV.SOLN IVC SCH ×2 (14:56→22:59)
[2022-04-01] MEDS ORDERED: *HR* Warfarin 3 MG TABLET PO ONE (18:00)
[2022-04-01] MEDS ORDERED: *HR* Heparin 5,000 UNIT/ML VIAL ONE (19:22)
[2022-04-01] MEDS: tiZANidine 4 MG TABLET PO SCH (19:37)
[2022-04-02] MEDS: Norepinephrine 4 MG/254 ML IV.SOLN IVC SCH ×2 (00:35→08:32)
[2022-04-02] MEDS: *HR* OxyCODONE/APAP 5/325 TABLET PO PRN ×3 (01:57→19:54)
[2022-04-02 04:37] LABS: Basophils # 0.1 K/mcL (0.0-0.2); Basophils % 0.4 %; Eosinophils # 0.2 K/mcL (0.0-0.6); Eosinophils % 0.9 %; Hematocrit 28.6 % (37.5-50.1); Hemoglobin 9.3 g/dL (12.9-16.9); Lymphocytes # 2.3 K/mcL (0.6-4.6); Lymphocytes % 10.8 %; Mean Corpuscular HGB Conc 32.5 g/dL (31.6-35.5); Mean Corpuscular Hemoglobin 29.2 pg (28.0-33.3); Mean Corpuscular Volume 89.9 fL (83.0-100.0); Mean Platelet Volume 10.6 fL (9.4-12.4); Monocytes # 2.1 K/mcL (0.0-1.3); Monocytes % 10.2 %; Neutrophils # 15.4 K/mcL (1.6-8.9); Platelet Count 283 K/mcL (140-400); Red Blood Count 3.18 M/mcL (4.19-5.50); Red Cell Distribution Width 14.5 % (11.5-14.5); Segmented Neutrophils % 73.7 %
[2022-04-02 04:44] LABS: Heparin anti-factor XA UFH 0.22 IU/mL (0.30-0.70)
[2022-04-02 04:45] LABS: INR 1.8; Prothrombin Time 19.5 Seconds (9.4-12.1)
[2022-04-02 04:57] LABS: Albumin 4.9 g/dL (3.5-5.7); Albumin/Globulin Ratio 1.6 (1.1-2.2); Bilirubin,Direct 0.1 mg/dL (0.0-0.2); Bilirubin,Indirect 0.4 mg/dL (0.0-1.0); Bilirubin,Total 0.5 mg/dL (0.3-1.0); Globulin 3.1 g/dL (2.4-3.5); Magnesium 2.9 mg/dL (1.6-2.6); Phosphorous 5.6 mg/dL (2.7-4.5); Potassium 4.5 mEq/L (3.5-5.1)
[2022-04-02] MEDS: Sennosides/Docusate Sodium TABLET PO SCH (08:27)
[2022-04-02] MEDS: Gabapentin 100 MG CAPSULE PO SCH ×3 (08:28→19:54)
[2022-04-02] MEDS: Aspirin Enteric Coated 81 MG Tablet PO SCH (08:28)
[2022-04-02] MEDS: carvediloL 6.25 MG TABLET PO SCH ×2 (08:28→15:43)
[2022-04-02] MEDS: Chlorhexidine Rinse 15 ML MOUTHWASH MM SCH ×2 (08:29→19:54)
[2022-04-02] MEDS: Insulin LISPRO 300 UNITS/3 ML VIAL SUBQ SCH ×4 (08:29→19:55)
[2022-04-02] MEDS: Heparin 25,000UNIT/250ML 1/2NS 25,000 UNIT/250 ML IV.SOLN IVC SCH (17:49)
[2022-04-02] MEDS ORDERED: *HR* Warfarin 1 MG TABLET PO ONE (18:00)
[2022-04-02] MEDS: PrismaSATE BGK 4/2.5 5,000 ML CRRT SCH (19:40)
[2022-04-02] MEDS: tiZANidine 4 MG TABLET PO SCH (19:54)
[2022-04-02] MEDS: Melatonin 3 MG TABLET PO PRN (19:56)
[2022-04-03] MEDS: Norepinephrine 4 MG/254 ML IV.SOLN IVC SCH (03:30)
[2022-04-03 03:57] LABS: Basophils # 0.1 K/mcL (0.0-0.2); Basophils % 0.3 %; Eosinophils # 0.3 K/mcL (0.0-0.6); Hematocrit 24.6 % (37.5-50.1); Hemoglobin 7.8 g/dL (12.9-16.9); Immature Granulocytes % 4.1 % (0-4); Mean Corpuscular HGB Conc 31.7 g/dL (31.6-35.5); Mean Corpuscular Hemoglobin 28.9 pg (28.0-33.3); Mean Corpuscular Volume 91.1 fL (83.0-100.0); Mean Platelet Volume 11.5 fL (9.4-12.4); Monocytes # 1.8 K/mcL (0.0-1.3); Monocytes % 10.9 %; Neutrophils # 11.8 K/mcL (1.6-8.9); Platelet Count 211 K/mcL (140-400); Red Cell Distribution Width 14.6 % (11.5-14.5); Segmented Neutrophils % 70.7 %; White Blood Count 16.7 K/mcL (4.3-11.1)
[2022-04-03 04:05] LABS: INR 1.4; Prothrombin Time 15.9 Seconds (9.4-12.1)
[2022-04-03 04:16] LABS: Albumin/Globulin Ratio 1.5 (1.1-2.2); Bilirubin,Direct 0.2 mg/dL (0.0-0.2); Bilirubin,Indirect 0.2 mg/dL (0.0-1.0); Bilirubin,Total 0.4 mg/dL (0.3-1.0); Calcium 10.1 mg/dL (8.6-10.3); Globulin 2.7 g/dL (2.4-3.5); Magnesium 2.9 mg/dL (1.6-2.6); Potassium 4.5 mEq/L (3.5-5.1); Total Protein 6.7 g/dL (6.4-8.9)
[2022-04-03] MEDS ORDERED: Albumin 25% 25gram/100mL 25 GM/100 ML IV.SOLN IVPB PRN (07:46)
[2022-04-03] MEDS ORDERED: 0.9 % Sodium Chloride 250 ML IVC PRN (07:46)
[2022-04-03] MEDS ORDERED: *HR* Heparin 10,000 UNIT/10 ML VIAL IV PRN (07:46)
[2022-04-03] MEDS ORDERED: 0.9 % Sodium Chloride 2,000 ML PRIME SCH (08:00)
[2022-04-03] MEDS: Chlorhexidine Rinse 15 ML MOUTHWASH MM SCH ×2 (08:21→20:04)
[2022-04-03] MEDS: Aspirin Enteric Coated 81 MG Tablet PO SCH (08:21)
[2022-04-03] MEDS: Gabapentin 100 MG CAPSULE PO SCH ×3 (08:22→20:13)
[2022-04-03] MEDS: Sennosides/Docusate Sodium TABLET PO SCH (08:22)
[2022-04-03] MEDS: Insulin LISPRO 300 UNITS/3 ML VIAL SUBQ SCH ×4 (08:29→19:55)
[2022-04-03] MEDS: *HR* OxyCODONE/APAP 5/325 TABLET PO PRN ×3 (09:39→20:12)
[2022-04-03] MEDS: carvediloL 6.25 MG TABLET PO SCH (11:23)
[2022-04-03] MEDS ORDERED: Amiodarone Premix 360 MG/200 ML BAG IVC ONE ×2 (13:22)
[2022-04-03] MEDS ORDERED: Amiodarone Premix 150 MG/100 ML BAG IVPB ONE ×2 (13:22)
[2022-04-03] MEDS ORDERED: 0.9 % Sodium Chloride 250 ML ONE (13:37)
[2022-04-03] MEDS ORDERED: *HR* Digoxin 0.5 MG/2 ML AMPUL IVP ONE (15:00)
[2022-04-03] MEDS: Phenylephrine 20 MG in 0.9 % Sodium Chloride 250 ML IVC SCH ×2 (16:29→19:51)
[2022-04-03 16:45] LABS: Hematocrit 24.3 % (37.5-50.1); Hemoglobin 8.1 g/dL (12.9-16.9)
[2022-04-03 17:00] LABS: Calcium 9.1 mg/dL (8.6-10.3); Magnesium 2.2 mg/dL (1.6-2.6); Potassium 3.7 mEq/L (3.5-5.1)
[2022-04-03] MEDS ORDERED: DilTIAZem 50 MG/50 ML IV.SOLN IVC SCH (18:00)
[2022-04-03] MEDS: Amiodarone Premix 360 MG/200 ML BAG IVC SCH (19:53)
[2022-04-03 21:38] LABS: Basophils % 0.3 %; Eosinophils # 0.2 K/mcL (0.0-0.6); Eosinophils % 1.7 %; Hematocrit 26.6 % (37.5-50.1); Hemoglobin 8.9 g/dL (12.9-16.9); Lymphocytes # 1.2 K/mcL (0.6-4.6); Lymphocytes % 8.4 %; Mean Corpuscular HGB Conc 33.5 g/dL (31.6-35.5); Mean Corpuscular Hemoglobin 29.5 pg (28.0-33.3); Mean Corpuscular Volume 88.1 fL (83.0-100.0); Mean Platelet Volume 10.7 fL (9.4-12.4); Monocytes # 1.6 K/mcL (0.0-1.3); Monocytes % 11.1 %; Neutrophils # 10.4 K/mcL (1.6-8.9); Platelet Count 252 K/mcL (140-400); Red Blood Count 3.02 M/mcL (4.19-5.50); Red Cell Distribution Width 14.3 % (11.5-14.5); Segmented Neutrophils % 73.5 %; White Blood Count 14.1 K/mcL (4.3-11.1)
[2022-04-03] MEDS: tiZANidine 4 MG TABLET PO SCH (21:51)
[2022-04-03] MEDS: Melatonin 3 MG TABLET PO PRN (21:51)
[2022-04-04] MEDS: Heparin 25,000UNIT/250ML 1/2NS 25,000 UNIT/250 ML IV.SOLN IVC SCH ×3 (00:14→21:36)
[2022-04-04] MEDS: Phenylephrine 20 MG in 0.9 % Sodium Chloride 250 ML IVC SCH (00:54)
[2022-04-04] MEDS: *HR* OxyCODONE/APAP 5/325 TABLET PO PRN ×2 (04:08→17:48)
[2022-04-04 04:34] LABS: Basophils % 0.3 %; Eosinophils # 0.3 K/mcL (0.0-0.6); Eosinophils % 2.4 %; Hematocrit 25.4 % (37.5-50.1); Hemoglobin 8.6 g/dL (12.9-16.9); Immature Granulocytes % 5.8 % (0-4); Lymphocytes # 1.7 K/mcL (0.6-4.6); Lymphocytes % 13.2 %; Mean Corpuscular HGB Conc 33.9 g/dL (31.6-35.5); Mean Corpuscular Hemoglobin 30.1 pg (28.0-33.3); Mean Corpuscular Volume 88.8 fL (83.0-100.0); Mean Platelet Volume 10.8 fL (9.4-12.4); Monocytes # 1.4 K/mcL (0.0-1.3); Monocytes % 11.1 %; Neutrophils # 8.5 K/mcL (1.6-8.9); Platelet Count 236 K/mcL (140-400); Red Blood Count 2.86 M/mcL (4.19-5.50); Red Cell Distribution Width 14.6 % (11.5-14.5); Segmented Neutrophils % 67.2 %; White Blood Count 12.7 K/mcL (4.3-11.1)
[2022-04-04 04:52] LABS: Calcium 9.2 mg/dL (8.6-10.3); Potassium 4.2 mEq/L (3.5-5.1)
[2022-04-04 05:19] LABS: Platelet Estimate Normal (Normal); Polychromasia 1+ (Not Present)
[2022-04-04 06:54] LABS: Heparin anti-factor XA UFH 0.36 IU/mL (0.30-0.70)
[2022-04-04 06:55] LABS: INR 1.3; Prothrombin Time 14.1 Seconds (9.4-12.1)
[2022-04-04] MEDS: Gabapentin 100 MG CAPSULE PO SCH ×3 (08:32→21:38)
[2022-04-04] MEDS: Chlorhexidine Rinse 15 ML MOUTHWASH MM SCH ×2 (08:32→19:57)
[2022-04-04] MEDS: Sennosides/Docusate Sodium TABLET PO SCH (08:32)
[2022-04-04] MEDS: carvediloL 6.25 MG TABLET PO SCH ×2 (08:32→16:34)
[2022-04-04] MEDS: Insulin LISPRO 300 UNITS/3 ML VIAL SUBQ SCH ×4 (08:33→19:57)
[2022-04-04] MEDS: Amiodarone Premix 360 MG/200 ML BAG IVC SCH (08:33)
[2022-04-04] MEDS: Norepinephrine 4 MG/254 ML IV.SOLN IVC SCH (08:36)
[2022-04-04] MEDS: Aspirin Enteric Coated 81 MG Tablet PO SCH (08:36)
[2022-04-04] MEDS: *HR* Amiodarone 200 MG TABLET PO SCH ×2 (11:52→21:38)
[2022-04-04] MEDS: tiZANidine 4 MG TABLET PO SCH (21:38)
[2022-04-05 04:50] LABS: Calcium 9.2 mg/dL (8.6-10.3); Potassium 4.3 mEq/L (3.5-5.1)
[2022-04-05 04:57] LABS: Basophils % 0.3 %; Eosinophils # 0.3 K/mcL (0.0-0.6); Eosinophils % 2.4 %; Hematocrit 24.8 % (37.5-50.1); Hemoglobin 8.2 g/dL (12.9-16.9); Immature Granulocytes % 4.5 % (0-4); Lymphocytes # 1.4 K/mcL (0.6-4.6); Lymphocytes % 11.5 %; Mean Corpuscular HGB Conc 33.1 g/dL (31.6-35.5); Mean Corpuscular Hemoglobin 29.6 pg (28.0-33.3); Mean Corpuscular Volume 89.5 fL (83.0-100.0); Mean Platelet Volume 11.3 fL (9.4-12.4); Monocytes # 1.3 K/mcL (0.0-1.3); Monocytes % 10.7 %; Neutrophils # 8.9 K/mcL (1.6-8.9); Platelet Count 269 K/mcL (140-400); Red Blood Count 2.77 M/mcL (4.19-5.50); Red Cell Distribution Width 14.7 % (11.5-14.5); Segmented Neutrophils % 70.6 %; White Blood Count 12.5 K/mcL (4.3-11.1)
[2022-04-05 05:06] LABS: INR 1.2
[2022-04-05] MEDS ORDERED: 0.9 % Sodium Chloride 250 ML IVC PRN (07:41)
[2022-04-05] MEDS ORDERED: *HR* Heparin 10,000 UNIT/10 ML VIAL IV PRN (07:41)
[2022-04-05] MEDS ORDERED: 0.9 % Sodium Chloride 2,000 ML PRIME SCH (07:45)
[2022-04-05] MEDS: carvediloL 6.25 MG TABLET PO SCH ×2 (08:17→17:46)
[2022-04-05] MEDS: *HR* Amiodarone 200 MG TABLET PO SCH ×2 (08:17→20:16)
[2022-04-05] MEDS: Gabapentin 100 MG CAPSULE PO SCH ×3 (08:18→20:15)
[2022-04-05] MEDS: Aspirin Enteric Coated 81 MG Tablet PO SCH (08:18)
[2022-04-05] MEDS: Sennosides/Docusate Sodium TABLET PO SCH (08:18)
[2022-04-05] MEDS: Chlorhexidine Rinse 15 ML MOUTHWASH MM SCH ×2 (08:18→20:15)
[2022-04-05] MEDS: Insulin LISPRO 300 UNITS/3 ML VIAL SUBQ SCH ×4 (08:18→20:16)
[2022-04-05] MEDS: *HR* OxyCODONE/APAP 5/325 TABLET PO PRN ×2 (17:51→23:31)
[2022-04-05] MEDS: Heparin 25,000UNIT/250ML 1/2NS 25,000 UNIT/250 ML IV.SOLN IVC SCH (18:42)
[2022-04-05] MEDS: tiZANidine 4 MG TABLET PO SCH (20:15)
[2022-04-06 03:57] LABS: Heparin anti-factor XA UFH 0.37 IU/mL (0.30-0.70); INR 1.1; Prothrombin Time 12.8 Seconds (9.4-12.1)
[2022-04-06 04:00] LABS: Basophils % 0.4 %; Eosinophils # 0.2 K/mcL (0.0-0.6); Eosinophils % 2.1 %; Hematocrit 24.5 % (37.5-50.1); Immature Granulocytes % 4.5 % (0-4); Lymphocytes # 1.3 K/mcL (0.6-4.6); Lymphocytes % 11.5 %; Mean Corpuscular HGB Conc 32.7 g/dL (31.6-35.5); Mean Corpuscular Hemoglobin 29.5 pg (28.0-33.3); Mean Corpuscular Volume 90.4 fL (83.0-100.0); Mean Platelet Volume 10.9 fL (9.4-12.4); Monocytes # 1.2 K/mcL (0.0-1.3); Monocytes % 10.8 %; Neutrophils # 7.9 K/mcL (1.6-8.9); Platelet Count 292 K/mcL (140-400); Red Blood Count 2.71 M/mcL (4.19-5.50); Red Cell Distribution Width 15.1 % (11.5-14.5); Segmented Neutrophils % 70.7 %; White Blood Count 11.2 K/mcL (4.3-11.1)
[2022-04-06 04:17] LABS: Magnesium 1.8 mg/dL (1.6-2.6); Phosphorous 5.1 mg/dL (2.7-4.5); Potassium 3.9 mEq/L (3.5-5.1)
[2022-04-06] MEDS: Insulin LISPRO 300 UNITS/3 ML VIAL SUBQ SCH ×4 (09:49→21:30)
[2022-04-06] MEDS: Sennosides/Docusate Sodium TABLET PO SCH (09:49)
[2022-04-06] MEDS: Gabapentin 100 MG CAPSULE PO SCH ×3 (09:49→21:10)
[2022-04-06] MEDS: *HR* Amiodarone 200 MG TABLET PO SCH ×2 (09:50→21:10)
[2022-04-06] MEDS: Aspirin Enteric Coated 81 MG Tablet PO SCH (09:50)
[2022-04-06] MEDS: Chlorhexidine Rinse 15 ML MOUTHWASH MM SCH ×2 (09:50→21:10)
[2022-04-06] MEDS: carvediloL 6.25 MG TABLET PO SCH ×2 (09:53→16:54)
[2022-04-06] MEDS ORDERED: Heparin 1,000 UNITS/500 mL 500 ML ONE (14:01)
[2022-04-06] MEDS ORDERED: *HR* Heparin 5,000 UNIT/ML VIAL ONE ×2 (14:50→14:53)
[2022-04-06] MEDS ORDERED: ceFAZolin 1,000 MG in 0.9 % Sodium Chloride Mini Bag 100 ML IVPB SCH (15:00)
[2022-04-06] MEDS: tiZANidine 4 MG TABLET PO SCH (21:10)
[2022-04-06] MEDS: Heparin 25,000UNIT/250ML 1/2NS 25,000 UNIT/250 ML IV.SOLN IVC SCH (21:50)
[2022-04-06] MEDS: Melatonin 3 MG TABLET PO PRN (21:58)
[2022-04-07 04:50] LABS: Heparin anti-factor XA UFH 0.26 IU/mL (0.30-0.70)
[2022-04-07 04:51] LABS: INR 1.1; Prothrombin Time 12.6 Seconds (9.4-12.1)
[2022-04-07 05:00] LABS: Calcium 9.7 mg/dL (8.6-10.3); Potassium 4.4 mEq/L (3.5-5.1)
[2022-04-07 05:19] LABS: Basophils # 0.1 K/mcL (0.0-0.2); Basophils % 0.4 %; Eosinophils # 0.2 K/mcL (0.0-0.6); Hemoglobin 8.5 g/dL (12.9-16.9); Immature Granulocytes % 2.5 % (0-4); Lymphocytes # 1.2 K/mcL (0.6-4.6); Lymphocytes % 10.8 %; Mean Corpuscular HGB Conc 32.7 g/dL (31.6-35.5); Mean Corpuscular Hemoglobin 29.8 pg (28.0-33.3); Mean Corpuscular Volume 91.2 fL (83.0-100.0); Mean Platelet Volume 10.7 fL (9.4-12.4); Monocytes # 1.3 K/mcL (0.0-1.3); Monocytes % 11.4 %; Neutrophils # 8.4 K/mcL (1.6-8.9); Platelet Count 319 K/mcL (140-400); Red Blood Count 2.85 M/mcL (4.19-5.50); Red Cell Distribution Width 14.9 % (11.5-14.5); Segmented Neutrophils % 72.9 %; White Blood Count 11.5 K/mcL (4.3-11.1)
[2022-04-07] MEDS: Aspirin Enteric Coated 81 MG Tablet PO SCH (08:36)
[2022-04-07] MEDS: Sennosides/Docusate Sodium TABLET PO SCH (08:36)
[2022-04-07] MEDS: Chlorhexidine Rinse 15 ML MOUTHWASH MM SCH ×2 (08:36→20:54)
[2022-04-07] MEDS: carvediloL 6.25 MG TABLET PO SCH ×2 (08:36→17:22)
[2022-04-07] MEDS: Gabapentin 100 MG CAPSULE PO SCH ×3 (08:36→20:54)
[2022-04-07] MEDS: Insulin LISPRO 300 UNITS/3 ML VIAL SUBQ SCH ×4 (08:37→20:55)
[2022-04-07] MEDS: *HR* Amiodarone 200 MG TABLET PO SCH ×2 (08:37→20:54)
[2022-04-07] MEDS: *HR* Enoxaparin 80 MG/0.8 ML SYRINGE SQ SCH (12:11)
[2022-04-07] MEDS ORDERED: *HR* Warfarin 5 MG TABLET PO ONE (18:00)
[2022-04-07] MEDS ORDERED: *HR* Warfarin 2.5 MG TABLET PO ONE (18:00)
[2022-04-07] MEDS: tiZANidine 4 MG TABLET PO SCH (20:54)
[2022-04-07] MEDS: Melatonin 3 MG TABLET PO PRN (20:57)
[2022-04-07] MEDS: *HR* Metoprolol 5 MG/5 ML VIAL IVP PRN (21:14)
[2022-04-08 04:55] LABS: Basophils % 0.4 %; Eosinophils # 0.3 K/mcL (0.0-0.6); Eosinophils % 2.7 %; Hemoglobin 8.4 g/dL (12.9-16.9); Immature Granulocytes % 2.1 % (0-4); Lymphocytes # 1.2 K/mcL (0.6-4.6); Lymphocytes % 11.5 %; Mean Corpuscular HGB Conc 32.3 g/dL (31.6-35.5); Mean Corpuscular Hemoglobin 29.2 pg (28.0-33.3); Mean Corpuscular Volume 90.3 fL (83.0-100.0); Mean Platelet Volume 10.6 fL (9.4-12.4); Monocytes # 1.2 K/mcL (0.0-1.3); Monocytes % 11.4 %; Neutrophils # 7.3 K/mcL (1.6-8.9); Platelet Count 346 K/mcL (140-400); Red Blood Count 2.88 M/mcL (4.19-5.50); Red Cell Distribution Width 14.6 % (11.5-14.5); Segmented Neutrophils % 71.9 %; White Blood Count 10.1 K/mcL (4.3-11.1)
[2022-04-08 05:55] LABS: Calcium 9.8 mg/dL (8.6-10.3); Potassium 4.4 mEq/L (3.5-5.1)
[2022-04-08] MEDS: *HR* Enoxaparin 80 MG/0.8 ML SYRINGE SQ SCH (07:28)
[2022-04-08] MEDS: Chlorhexidine Rinse 15 ML MOUTHWASH MM SCH (07:29)
[2022-04-08] MEDS: Sennosides/Docusate Sodium TABLET PO SCH (07:29)
[2022-04-08] MEDS: Aspirin Enteric Coated 81 MG Tablet PO SCH (07:29)
[2022-04-08] MEDS: Gabapentin 100 MG CAPSULE PO SCH (07:29)
[2022-04-08] MEDS: carvediloL 6.25 MG TABLET PO SCH (07:30)
[2022-04-08] MEDS: *HR* Amiodarone 200 MG TABLET PO SCH (07:30)
[2022-04-08] MEDS: Insulin LISPRO 300 UNITS/3 ML VIAL SUBQ SCH (07:40)
[2022-04-08 07:41] VITALS: TEMP 98.1
[2022-04-08] MEDS: *HR* Metoprolol 5 MG/5 ML VIAL IVP PRN (08:16)
[2022-04-08 10:50] VITALS: BP 138/90; PULSE 85; O2SAT 97
== END 2022-04-08 10:40 | disposition home or self-care (01) | DRG 163 ==
LOC: 3ANU 10:55 → EMEROOARM 10:55 → SUATTDRO 15:29 → 3ANU 16:59 → 2NENU 03-19 02:20 → SUATTDRO 03-21 08:50 → ICNU 03-27 14:30
PROVIDERS: ADMIT Family Medicine; ATTEND Internal Medicine
PROC: IRPERMA (2022-04-06 12:00)

== ENCOUNTER 2022-04-13 22:46 | Observation (INO) ==
[2022-04-13 23:43] LABS: Basophils % 0.4 %; Eosinophils # 0.3 K/mcL (0.0-0.6); Eosinophils % 3.5 %; Hemoglobin 8.3 g/dL (12.9-16.9); Immature Granulocytes % 0.3 % (0-4); Mean Corpuscular HGB Conc 31.9 g/dL (31.6-35.5); Mean Corpuscular Volume 90.9 fL (83.0-100.0); Mean Platelet Volume 9.7 fL (9.4-12.4); Monocytes % 10.8 %; Neutrophils # 6.9 K/mcL (1.6-8.9); Platelet Count 369 K/mcL (140-400); Red Blood Count 2.86 M/mcL (4.19-5.50); Red Cell Distribution Width 14.5 % (11.5-14.5); White Blood Count 9.3 K/mcL (4.3-11.1)
[2022-04-13 23:51] LABS: INR 1.3
[2022-04-13 23:54] LABS: Activated Partial Thrombo Time 34.7 Seconds (26.0-36.0)
[2022-04-14 00:05] LABS: Calcium 9.1 mg/dL (8.6-10.3); Potassium 3.7 mEq/L (3.5-5.1)
[2022-04-14 00:13] LABS: Troponin I 0.08 ng/mL (< 0.04)
[2022-04-14] MEDS ORDERED: Iopamidol - 370 500 ML MLS IVP ONE (00:50)
[2022-04-14] MEDS ORDERED: Morphine Sulfate 2 MG/ML SYRINGE IVP ONE (00:51)
[2022-04-14 01:37] LABS: INR 1.3; Prothrombin Time 14.2 Seconds (9.4-12.1)
[2022-04-14] MEDS ORDERED: methylPREDNISolone 125 MG/2 ML VIAL IVP ONE (02:07)
[2022-04-14] MEDS: *HR* Labetalol 20 MG/4 ML SYRINGE IVP PRN ×2 (08:05→15:36)
[2022-04-14] MEDS ORDERED: Ondansetron 4 MG/2 ML VIAL IVP PRN (08:44)
[2022-04-14] MEDS ORDERED: Acetaminophen 325 MG TABLET PO PRN (08:44)
[2022-04-14] MEDS ORDERED: Naloxone 0.4 MG/ML INJ IVP PRN ×2 (08:44→08:50)
[2022-04-14] MEDS ORDERED: Nitroglycerin 0.4 MG TAB.SUBL SL PRN (08:53)
[2022-04-14] MEDS ORDERED: Enoxaparin Weight Dosing SQ SCH (09:00)
[2022-04-14] MEDS ORDERED: D5% in Water 1,000 ML IVC PRN (09:46)
[2022-04-14] MEDS ORDERED: Dextrose Gel 15 GM/37.5 ML TUBE PO PRN ×2 (09:46)
[2022-04-14] MEDS ORDERED: *HR* Dextrose 50 % in Water (Syg) 50 ML SYRINGE IVP PRN (09:46)
[2022-04-14] MEDS ORDERED: amLODIPine 5 MG TABLET PO SCH (10:45)
[2022-04-14] MEDS: Aspirin Enteric Coated 81 MG Tablet PO SCH (11:19)
[2022-04-14] MEDS: *HR* Amiodarone 200 MG TABLET PO SCH ×2 (11:20→21:07)
[2022-04-14] MEDS ORDERED: *HR* Heparin 5,000 UNIT/ML VIAL IVP PRN (11:32)
[2022-04-14] MEDS ORDERED: *HR* Heparin 5,000 UNIT/ML VIAL IVP ONE (11:32)
[2022-04-14 13:31] LABS: Hematocrit 25.2 % (37.5-50.1); Mean Corpuscular HGB Conc 31.7 g/dL (31.6-35.5); Mean Corpuscular Hemoglobin 28.7 pg (28.0-33.3); Mean Corpuscular Volume 90.3 fL (83.0-100.0); Mean Platelet Volume 10.1 fL (9.4-12.4); Platelet Count 346 K/mcL (140-400); Red Blood Count 2.79 M/mcL (4.19-5.50); Red Cell Distribution Width 14.5 % (11.5-14.5); White Blood Count 5.6 K/mcL (4.3-11.1)
[2022-04-14 13:40] LABS: Heparin anti-factor XA UFH 0.09 IU/mL (0.30-0.70)
[2022-04-14 13:41] LABS: INR 1.3
[2022-04-14] MEDS: Insulin LISPRO 300 UNITS/3 ML VIAL SUBQ SCH ×3 (14:23→21:12)
[2022-04-14] MEDS: Heparin 25,000UNIT/250ML 1/2NS 25,000 UNIT/250 ML IV.SOLN IVC SCH (14:39)
[2022-04-14] MEDS ORDERED: carvediloL 6.25 MG TABLET PO SCH (17:00)
[2022-04-14] MEDS: carvediloL 6.25 MG TABLET PO SCH (17:08)
[2022-04-14] MEDS: Gabapentin 100 MG CAPSULE PO SCH ×2 (17:09→21:05)
[2022-04-14] MEDS ORDERED: *HR* Warfarin 5 MG TABLET PO ONE (18:00)
[2022-04-14] MEDS ORDERED: Warfarin perPT PO PRN (18:00)
[2022-04-14] MEDS: tiZANidine 4 MG TABLET PO SCH (21:05)
[2022-04-15 02:43] LABS: White Blood Count 6.8 K/mcL (4.3-11.1)
[2022-04-15 02:44] LABS: Basophils % 0.6 %; Eosinophils % 0.6 %; Hematocrit 22.9 % (37.5-50.1); Hemoglobin 7.3 g/dL (12.9-16.9); Immature Granulocytes % 0.4 % (0-4); Lymphocytes # 1.1 K/mcL (0.6-4.6); Lymphocytes % 16.8 %; Mean Corpuscular HGB Conc 31.9 g/dL (31.6-35.5); Mean Corpuscular Hemoglobin 28.9 pg (28.0-33.3); Mean Corpuscular Volume 90.5 fL (83.0-100.0); Mean Platelet Volume 9.8 fL (9.4-12.4); Monocytes % 14.3 %; Neutrophils # 4.6 K/mcL (1.6-8.9); Platelet Count 342 K/mcL (140-400); Red Blood Count 2.53 M/mcL (4.19-5.50); Red Cell Distribution Width 14.5 % (11.5-14.5); Segmented Neutrophils % 67.3 %
[2022-04-15 02:46] LABS: INR 1.2; Prothrombin Time 13.5 Seconds (9.4-12.1)
[2022-04-15 03:01] LABS: Calcium 9.5 mg/dL (8.6-10.3); Magnesium 1.8 mg/dL (1.6-2.6); Potassium 3.3 mEq/L (3.5-5.1)
[2022-04-15] MEDS: Heparin 25,000UNIT/250ML 1/2NS 25,000 UNIT/250 ML IV.SOLN IVC SCH (08:09)
[2022-04-15] MEDS: carvediloL 6.25 MG TABLET PO SCH ×2 (08:10→16:33)
[2022-04-15] MEDS: Multivit/Ca/Min/Fe/FA 1 TAB TABLET PO SCH (08:11)
[2022-04-15] MEDS: amLODIPine 5 MG TABLET PO SCH (08:11)
[2022-04-15] MEDS: Gabapentin 100 MG CAPSULE PO SCH ×3 (08:11→20:38)
[2022-04-15] MEDS: Aspirin Enteric Coated 81 MG Tablet PO SCH (08:11)
[2022-04-15] MEDS: *HR* Amiodarone 200 MG TABLET PO SCH ×2 (08:12→20:38)
[2022-04-15] MEDS: Insulin LISPRO 300 UNITS/3 ML VIAL SUBQ SCH ×4 (08:26→20:39)
[2022-04-15] MEDS ORDERED: 0.9 % Sodium Chloride 250 ML IVC SCH ×2 (10:15→12:00)
[2022-04-15 10:39] LABS: Estimated Average Glucose 131 mg/dl; Hemoglobin A1C 6.2 %
[2022-04-15] MEDS ORDERED: hydrALAZINE 25 MG TABLET PO SCH (16:00)
[2022-04-15] MEDS ORDERED: *HR* Warfarin 2.5 MG TABLET PO ONE (18:00)
[2022-04-15] MEDS: tiZANidine 4 MG TABLET PO SCH (20:39)
[2022-04-16 03:16] LABS: Heparin anti-factor XA UFH 0.15 IU/mL (0.30-0.70); INR 1.1; Prothrombin Time 12.6 Seconds (9.4-12.1)
[2022-04-16 03:24] LABS: Basophils # 0.1 K/mcL (0.0-0.2); Basophils % 0.8 %; Eosinophils # 0.3 K/mcL (0.0-0.6); Eosinophils % 4.4 %; Hematocrit 25.2 % (37.5-50.1); Immature Granulocytes % 0.4 % (0-4); Lymphocytes # 1.3 K/mcL (0.6-4.6); Lymphocytes % 17.6 %; Mean Corpuscular HGB Conc 31.7 g/dL (31.6-35.5); Mean Corpuscular Hemoglobin 28.8 pg (28.0-33.3); Mean Corpuscular Volume 90.6 fL (83.0-100.0); Mean Platelet Volume 10.6 fL (9.4-12.4); Monocytes # 0.7 K/mcL (0.0-1.3); Neutrophils # 4.9 K/mcL (1.6-8.9); Platelet Count 339 K/mcL (140-400); Red Blood Count 2.78 M/mcL (4.19-5.50); Segmented Neutrophils % 66.8 %; White Blood Count 7.3 K/mcL (4.3-11.1)
[2022-04-16] MEDS: Heparin 25,000UNIT/250ML 1/2NS 25,000 UNIT/250 ML IV.SOLN IVC SCH ×2 (03:37→17:26)
[2022-04-16] MEDS: *HR* Heparin 5,000 UNIT/ML VIAL IVP PRN ×2 (03:40→17:24)
[2022-04-16 03:50] LABS: Calcium 9.1 mg/dL (8.6-10.3); Potassium 3.8 mEq/L (3.5-5.1)
[2022-04-16] MEDS: Aspirin Enteric Coated 81 MG Tablet PO SCH (08:00)
[2022-04-16] MEDS: Multivit/Ca/Min/Fe/FA 1 TAB TABLET PO SCH (08:00)
[2022-04-16] MEDS: Gabapentin 100 MG CAPSULE PO SCH ×3 (08:00→21:07)
[2022-04-16] MEDS: hydrALAZINE 25 MG TABLET PO SCH ×2 (08:00→15:14)
[2022-04-16] MEDS: carvediloL 6.25 MG TABLET PO SCH ×2 (08:00→17:26)
[2022-04-16] MEDS: *HR* Amiodarone 200 MG TABLET PO SCH ×2 (08:00→21:06)
[2022-04-16] MEDS: amLODIPine 5 MG TABLET PO SCH (08:01)
[2022-04-16] MEDS: Insulin LISPRO 300 UNITS/3 ML VIAL SUBQ SCH ×4 (08:04→21:07)
[2022-04-16] MEDS: Furosemide 20 MG TABLET PO SCH (12:02)
[2022-04-16] MEDS ORDERED: *HR* Warfarin 2.5 MG TABLET PO ONE (18:00)
[2022-04-16] MEDS: tiZANidine 4 MG TABLET PO SCH (21:06)
[2022-04-17] MEDS: hydrALAZINE 25 MG TABLET PO SCH ×2 (00:28→07:55)
[2022-04-17 02:07] LABS: Basophils # 0.1 K/mcL (0.0-0.2); Basophils % 0.6 %; Eosinophils # 0.4 K/mcL (0.0-0.6); Eosinophils % 4.8 %; Hematocrit 24.8 % (37.5-50.1); Hemoglobin 8.1 g/dL (12.9-16.9); Immature Granulocytes % 0.7 % (0-4); Lymphocytes # 1.5 K/mcL (0.6-4.6); Mean Corpuscular HGB Conc 32.7 g/dL (31.6-35.5); Mean Corpuscular Hemoglobin 29.7 pg (28.0-33.3); Mean Corpuscular Volume 90.8 fL (83.0-100.0); Mean Platelet Volume 10.4 fL (9.4-12.4); Monocytes # 0.9 K/mcL (0.0-1.3); Monocytes % 9.8 %; Neutrophils # 5.9 K/mcL (1.6-8.9); Platelet Count 316 K/mcL (140-400); Red Blood Count 2.73 M/mcL (4.19-5.50); Red Cell Distribution Width 15.1 % (11.5-14.5); Segmented Neutrophils % 67.1 %; White Blood Count 8.8 K/mcL (4.3-11.1)
[2022-04-17 02:17] LABS: INR 1.2; Prothrombin Time 12.9 Seconds (9.4-12.1)
[2022-04-17 02:18] LABS: Heparin anti-factor XA UFH 0.38 IU/mL (0.30-0.70)
[2022-04-17 02:29] LABS: Calcium 9.4 mg/dL (8.6-10.3); Potassium 3.6 mEq/L (3.5-5.1)
[2022-04-17] MEDS: Heparin 25,000UNIT/250ML 1/2NS 25,000 UNIT/250 ML IV.SOLN IVC SCH (07:45)
[2022-04-17] MEDS: *HR* Amiodarone 200 MG TABLET PO SCH (07:54)
[2022-04-17] MEDS: Multivit/Ca/Min/Fe/FA 1 TAB TABLET PO SCH (07:54)
[2022-04-17] MEDS: amLODIPine 5 MG TABLET PO SCH (07:54)
[2022-04-17] MEDS: carvediloL 6.25 MG TABLET PO SCH (07:55)
[2022-04-17] MEDS: Aspirin Enteric Coated 81 MG Tablet PO SCH (07:55)
[2022-04-17] MEDS: Gabapentin 100 MG CAPSULE PO SCH (07:56)
[2022-04-17] MEDS: Insulin LISPRO 300 UNITS/3 ML VIAL SUBQ SCH ×2 (07:56→12:25)
[2022-04-17] MEDS: Furosemide 20 MG TABLET PO SCH (07:56)
[2022-04-17 10:43] VITALS: BP 135/77; PULSE 68; TEMP 98.9; O2SAT 95
[2022-04-17] MEDS ORDERED: *HR* Warfarin 3 MG TABLET PO ONE (18:00)
[2022-04-18] MEDS ORDERED: *HR* Amiodarone 200 MG TABLET PO SCH (09:00)
== END 2022-04-17 14:47 | disposition home or self-care (01) ==
LOC: EMEROOARM 22:46 → 2ANU 22:46 → SUATTDRO 04-14 12:58 → 2ANU 04-14 13:51
PROVIDERS: ADMIT Pharmacist; ATTEND General Practice

== ENCOUNTER 2022-05-20 14:17 | Observation (INO) ==
[2022-05-20] MEDS ORDERED: *HR* Labetalol 20 MG/4 ML SYRINGE IVP ONE ×2 (15:14→19:26)
[2022-05-20 15:28] LABS: Basophils # 0.1 K/mcL (0.0-0.2); Basophils % 0.7 %; Eosinophils # 0.3 K/mcL (0.0-0.6); Eosinophils % 3.5 %; Hematocrit 33.3 % (37.5-50.1); Hemoglobin 10.4 g/dL (12.9-16.9); Immature Granulocytes % 0.5 % (0-4); Lymphocytes # 1.1 K/mcL (0.6-4.6); Lymphocytes % 14.2 %; Mean Corpuscular HGB Conc 31.2 g/dL (31.6-35.5); Mean Corpuscular Volume 92.8 fL (83.0-100.0); Mean Platelet Volume 10.8 fL (9.4-12.4); Neutrophils # 5.1 K/mcL (1.6-8.9); Platelet Count 253 K/mcL (140-400); Red Blood Count 3.59 M/mcL (4.19-5.50); Red Cell Distribution Width 17.1 % (11.5-14.5); Segmented Neutrophils % 68.1 %; White Blood Count 7.5 K/mcL (4.3-11.1)
[2022-05-20] MEDS ORDERED: Iopamidol - 370 500 ML MLS IVP ONE (15:53)
[2022-05-20 15:54] LABS: Albumin 4.1 g/dL (3.5-5.7); Albumin/Globulin Ratio 1.6 (1.1-2.2); Bilirubin,Direct 0.1 mg/dL (0.0-0.2); Bilirubin,Indirect 0.2 mg/dL (0.0-1.0); Bilirubin,Total 0.3 mg/dL (0.3-1.0); Calcium 9.6 mg/dL (8.6-10.3); Globulin 2.6 g/dL (2.4-3.5); Potassium 3.9 mEq/L (3.5-5.1); Total Protein 6.7 g/dL (6.4-8.9); Troponin I 0.03 ng/mL (< 0.04)
[2022-05-20] MEDS ORDERED: Famotidine 20 MG/2 ML VIAL IVP ONE (15:54)
[2022-05-20] MEDS ORDERED: methylPREDNISolone 125 MG/2 ML VIAL IVP ONE (15:54)
[2022-05-20] MEDS ORDERED: 0.9 % Sodium Chloride 1,000 ML IV ONE (16:14)
[2022-05-20 16:31] LABS: INR 1.7; Prothrombin Time 19.1 Seconds (9.4-12.1)
[2022-05-20 16:34] LABS: Activated Partial Thrombo Time 39.3 Seconds (26.0-36.0)
[2022-05-20 17:12] LABS: Amphetamine Screen,Urine Negative ng/mL (Cutoff=1000); Barbiturate Screen,Urine Negative ng/mL (Cutoff=200); Benzodiazepines Screen,Urine Negative ng/mL (Cutoff=200); Cannabinoid Screen,Urine Negative ng/mL (Cutoff = 50); Cocaine Screen,Urine Negative ng/mL (Cutoff= 300); Opiate Screen,Urine Negative ng/mL (Cutoff=300); Phencyclidine Screen,Urine Negative ng/mL (Cutoff=25)
[2022-05-20] MEDS ORDERED: Aspirin 325 MG TABLET PO ONE (19:27)
[2022-05-20] MEDS ORDERED: Naloxone 0.4 MG/ML INJ IVP PRN (21:01)
[2022-05-20] MEDS ORDERED: Ondansetron 4 MG/2 ML VIAL IVP PRN (21:01)
[2022-05-20] MEDS ORDERED: Acetaminophen 325 MG TABLET PO PRN (21:01)
[2022-05-20] MEDS ORDERED: Melatonin 3 MG TABLET PO PRN (21:01)
[2022-05-20] MEDS: niCARdipine 20 MG/200 ML MLS IVC SCH (21:13)
[2022-05-20] MEDS ORDERED: D5% in Water 1,000 ML IVC PRN (21:24)
[2022-05-20] MEDS ORDERED: *HR* Dextrose 50 % in Water (Syg) 50 ML SYRINGE IVP PRN (21:24)
[2022-05-20] MEDS ORDERED: Dextrose Gel 15 GM/37.5 ML TUBE PO PRN ×2 (21:24)
[2022-05-20] MEDS ORDERED: Nitroglycerin 0.4 MG TAB.SUBL SL PRN (22:38)
[2022-05-21] MEDS: niCARdipine 20 MG/200 ML MLS IVC SCH ×2 (01:19→08:41)
[2022-05-21 05:18] LABS: Hematocrit 33.1 % (37.5-50.1); Hemoglobin 10.2 g/dL (12.9-16.9); Mean Corpuscular HGB Conc 30.8 g/dL (31.6-35.5); Mean Corpuscular Hemoglobin 28.7 pg (28.0-33.3); Mean Corpuscular Volume 93.2 fL (83.0-100.0); Mean Platelet Volume 11.5 fL (9.4-12.4); Platelet Count 251 K/mcL (140-400); Red Blood Count 3.55 M/mcL (4.19-5.50); Red Cell Distribution Width 16.8 % (11.5-14.5)
[2022-05-21 05:33] LABS: INR 1.9; Prothrombin Time 20.8 Seconds (9.4-12.1)
[2022-05-21 05:35] LABS: Calcium 9.9 mg/dL (8.6-10.3); Potassium 4.4 mEq/L (3.5-5.1)
[2022-05-21] MEDS: hydrALAZINE 25 MG TABLET PO SCH ×2 (07:54→16:20)
[2022-05-21] MEDS: Aspirin Enteric Coated 81 MG Tablet PO SCH (07:54)
[2022-05-21] MEDS: *HR* Amiodarone 200 MG TABLET PO SCH ×2 (07:54→20:07)
[2022-05-21] MEDS: amLODIPine 5 MG TABLET PO SCH (07:54)
[2022-05-21] MEDS: Gabapentin 100 MG CAPSULE PO SCH ×3 (07:54→20:07)
[2022-05-21] MEDS ORDERED: carvediloL 6.25 MG TABLET PO SCH (08:00)
[2022-05-21] MEDS: Insulin LISPRO 300 UNITS/3 ML VIAL SUBQ SCH ×3 (08:02→16:23)
[2022-05-21] MEDS: carvediloL 25 MG TABLET PO SCH (16:20)
[2022-05-21] MEDS: Valsartan 160 MG TABLET PO SCH (16:20)
[2022-05-21] MEDS ORDERED: *HR* Warfarin 7.5 MG TABLET PO ONE (18:00)
[2022-05-21] MEDS ORDERED: Warfarin perPT PO PRN (18:00)
[2022-05-21] MEDS ORDERED: tiZANidine 4 MG TABLET PO SCH (21:00)
[2022-05-21] MEDS ORDERED: *HR* Labetalol 20 MG/4 ML SYRINGE IVP ONE (21:20)
[2022-05-22 01:15] LABS: Basophils % 0.3 %; Eosinophils % 0.1 %; Hematocrit 30.8 % (37.5-50.1); Hemoglobin 9.5 g/dL (12.9-16.9); Immature Granulocytes % 0.5 % (0-4); Lymphocytes # 1.3 K/mcL (0.6-4.6); Lymphocytes % 12.5 %; Mean Corpuscular HGB Conc 30.8 g/dL (31.6-35.5); Mean Corpuscular Hemoglobin 29.1 pg (28.0-33.3); Mean Corpuscular Volume 94.5 fL (83.0-100.0); Mean Platelet Volume 10.9 fL (9.4-12.4); Monocytes # 1.2 K/mcL (0.0-1.3); Monocytes % 11.8 %; Neutrophils # 7.7 K/mcL (1.6-8.9); Platelet Count 232 K/mcL (140-400); Red Blood Count 3.26 M/mcL (4.19-5.50); Red Cell Distribution Width 17.1 % (11.5-14.5); Segmented Neutrophils % 74.8 %; White Blood Count 10.3 K/mcL (4.3-11.1)
[2022-05-22] MEDS: hydrALAZINE 25 MG TABLET PO SCH ×3 (01:30→17:11)
[2022-05-22 01:49] LABS: Thyroid Stimulating Hormone 1.065 mcIU/mL (0.340-5.600)
[2022-05-22] MEDS: Insulin LISPRO 300 UNITS/3 ML VIAL SUBQ SCH ×3 (07:43→17:05)
[2022-05-22] MEDS: Gabapentin 100 MG CAPSULE PO SCH ×2 (07:44→15:01)
[2022-05-22] MEDS: carvediloL 25 MG TABLET PO SCH ×2 (07:44→17:11)
[2022-05-22] MEDS: amLODIPine 5 MG TABLET PO SCH (07:44)
[2022-05-22] MEDS: *HR* Amiodarone 200 MG TABLET PO SCH (07:44)
[2022-05-22] MEDS: Valsartan 160 MG TABLET PO SCH (07:44)
[2022-05-22] MEDS: Aspirin Enteric Coated 81 MG Tablet PO SCH (07:44)
[2022-05-22 11:07] VITALS: BP 157/97
[2022-05-22 17:08] VITALS: PULSE 73; TEMP 97.4; O2SAT 97
[2022-05-22] MEDS ORDERED: *HR* Warfarin 7.5 MG TABLET PO ONE (18:00)
[2022-05-23] MEDS ORDERED: Spironolactone 25 MG TABLET PO SCH (09:00)
== END 2022-05-22 18:03 | disposition home or self-care (01) ==
LOC: 2NENU 14:17 → EMEROOARM 14:17 → SUATTDRO 21:14 → 2NENU 21:31
PROVIDERS: ADMIT Internal Medicine; ATTEND Internal Medicine

== ENCOUNTER 2022-06-04 23:24 | Inpatient (IN) ==
[2022-06-04] MEDS ORDERED: Nitroglycerin 0.4 MG TAB.SUBL SL ONE ×2 (23:33)
[2022-06-04] MEDS ORDERED: Iopamidol - 370 500 ML MLS IVP ONE (23:36)
[2022-06-04] MEDS ORDERED: methylPREDNISolone 125 MG/2 ML VIAL IVP ONE (23:47)
[2022-06-05 00:10] LABS: Basophils # 0.1 K/mcL (0.0-0.2); Basophils % 0.7 %; Eosinophils # 0.2 K/mcL (0.0-0.6); Eosinophils % 2.2 %; Hemoglobin 13.4 g/dL (12.9-16.9); Immature Granulocytes % 0.9 % (0-4); Lymphocytes # 2.1 K/mcL (0.6-4.6); Lymphocytes % 20.1 %; Mean Corpuscular HGB Conc 31.2 g/dL (31.6-35.5); Mean Corpuscular Hemoglobin 29.4 pg (28.0-33.3); Mean Corpuscular Volume 94.3 fL (83.0-100.0); Mean Platelet Volume 12.5 fL (9.4-12.4); Monocytes % 9.2 %; Neutrophils # 7.1 K/mcL (1.6-8.9); Platelet Count 263 K/mcL (140-400); Red Blood Count 4.56 M/mcL (4.19-5.50); Red Cell Distribution Width 17.2 % (11.5-14.5); Segmented Neutrophils % 66.9 %; White Blood Count 10.6 K/mcL (4.3-11.1)
[2022-06-05 00:12] LABS: Calcium 9.7 mg/dL (8.6-10.3); Potassium 4.4 mEq/L (3.5-5.1); Troponin I 0.03 ng/mL (< 0.04)
[2022-06-05 00:16] LABS: INR 2.1; Prothrombin Time 23.5 Seconds (9.4-12.1)
[2022-06-05 00:18] LABS: Activated Partial Thrombo Time 42.5 Seconds (26.0-36.0)
[2022-06-05] MEDS ORDERED: Furosemide 40 MG/4 ML VIAL IVP ONE (02:39)
[2022-06-05] MEDS ORDERED: Ondansetron ODT 4 MG TAB.RAPDIS SL PRN (02:58)
[2022-06-05] MEDS ORDERED: Naloxone 0.4 MG/ML INJ IVP PRN (02:58)
[2022-06-05 04:17] LABS: Influenza A PCR Negative (Negative); Influenza B PCR Negative (Negative); Resp. Syncytial Virus PCR Negative (Negative)
[2022-06-05 04:18] LABS: SARS-CoV-2 by PCR (In House) Negative (Negative)
[2022-06-05] MEDS ORDERED: Dextrose Gel 15 GM/37.5 ML TUBE PO PRN ×2 (04:34)
[2022-06-05] MEDS ORDERED: *HR* Dextrose 50 % in Water (Syg) 50 ML SYRINGE IVP PRN (04:34)
[2022-06-05] MEDS ORDERED: D5% in Water 1,000 ML IVC PRN (04:34)
[2022-06-05] MEDS: amLODIPine 5 MG TABLET PO SCH (08:23)
[2022-06-05] MEDS: *HR* Amiodarone 200 MG TABLET PO SCH ×2 (08:23→21:19)
[2022-06-05] MEDS: hydrALAZINE 25 MG TABLET PO SCH ×3 (08:24→21:18)
[2022-06-05] MEDS: Insulin LISPRO 300 UNITS/3 ML VIAL SUBQ SCH ×3 (08:24→17:07)
[2022-06-05] MEDS ORDERED: Spironolactone 25 MG TABLET PO SCH (09:00)
[2022-06-05 10:33] LABS: Hematocrit 32.4 % (37.5-50.1); Mean Corpuscular HGB Conc 31.8 g/dL (31.6-35.5); Mean Corpuscular Hemoglobin 29.5 pg (28.0-33.3); Mean Corpuscular Volume 92.8 fL (83.0-100.0); Mean Platelet Volume 12.4 fL (9.4-12.4); Platelet Count 212 K/mcL (140-400); Red Blood Count 3.49 M/mcL (4.19-5.50); White Blood Count 8.1 K/mcL (4.3-11.1)
[2022-06-05 10:35] LABS: Hemoglobin 10.3 g/dL (12.9-16.9)
[2022-06-05 10:49] LABS: Albumin 3.9 g/dL (3.5-5.7); Albumin/Globulin Ratio 1.9 (1.1-2.2); Bilirubin,Total 0.6 mg/dL (0.3-1.0); Calcium 9.6 mg/dL (8.6-10.3); Globulin 2.1 g/dL (2.4-3.5); Potassium 3.9 mEq/L (3.5-5.1)
[2022-06-05] MEDS: Furosemide 40 MG/4 ML VIAL IVP SCH ×2 (12:28→17:07)
[2022-06-05] MEDS: Valsartan 160 MG TABLET PO SCH (15:11)
[2022-06-05] MEDS: carvediloL 25 MG TABLET PO SCH (17:07)
[2022-06-05] MEDS ORDERED: *HR* Warfarin 7.5 MG TABLET PO ONE (18:00)
[2022-06-05] MEDS ORDERED: Warfarin perPT PO PRN (18:00)
[2022-06-05] MEDS: Spironolactone 25 MG TABLET PO SCH (21:19)
[2022-06-06 03:23] LABS: Prothrombin Time 33.4 Seconds (9.4-12.1)
[2022-06-06] MEDS: Insulin LISPRO 300 UNITS/3 ML VIAL SUBQ SCH ×3 (07:47→16:50)
[2022-06-06 07:50] LABS: Basophils % 0.1 %; Hematocrit 29.2 % (37.5-50.1); Hemoglobin 9.3 g/dL (12.9-16.9); Immature Granulocytes % 0.3 % (0-4); Lymphocytes % 8.2 %; Mean Corpuscular HGB Conc 31.8 g/dL (31.6-35.5); Mean Corpuscular Hemoglobin 29.6 pg (28.0-33.3); Mean Platelet Volume 11.9 fL (9.4-12.4); Monocytes # 1.5 K/mcL (0.0-1.3); Monocytes % 12.1 %; Platelet Count 186 K/mcL (140-400); Red Blood Count 3.14 M/mcL (4.19-5.50); Red Cell Distribution Width 17.5 % (11.5-14.5); Segmented Neutrophils % 79.3 %
[2022-06-06 07:51] LABS: White Blood Count 12.6 K/mcL (4.3-11.1)
[2022-06-06 08:04] LABS: Calcium 9.1 mg/dL (8.6-10.3); Potassium 3.3 mEq/L (3.5-5.1)
[2022-06-06] MEDS: Valsartan 160 MG TABLET PO SCH (08:06)
[2022-06-06] MEDS: Furosemide 40 MG/4 ML VIAL IVP SCH ×2 (08:06→16:45)
[2022-06-06] MEDS: carvediloL 25 MG TABLET PO SCH ×2 (08:07→16:45)
[2022-06-06] MEDS: *HR* Amiodarone 200 MG TABLET PO SCH ×2 (08:07→20:15)
[2022-06-06] MEDS: amLODIPine 5 MG TABLET PO SCH (08:07)
[2022-06-06] MEDS: hydrALAZINE 25 MG TABLET PO SCH ×3 (08:07→20:15)
[2022-06-06] MEDS: Spironolactone 25 MG TABLET PO SCH ×2 (08:07→20:15)
[2022-06-06 10:31] LABS: Triiodothyronine (T3) Free 3.4 pg/mL (2.50-3.90)
[2022-06-06] MEDS ORDERED: *HR* Warfarin 2.5 MG TABLET PO ONE (18:00)
[2022-06-07 02:30] LABS: Hematocrit 32.7 % (37.5-50.1); Hemoglobin 10.5 g/dL (12.9-16.9); Mean Corpuscular HGB Conc 32.1 g/dL (31.6-35.5); Mean Corpuscular Hemoglobin 29.7 pg (28.0-33.3); Mean Corpuscular Volume 92.4 fL (83.0-100.0); Mean Platelet Volume 12.5 fL (9.4-12.4); Platelet Count 199 K/mcL (140-400); Red Blood Count 3.54 M/mcL (4.19-5.50); Red Cell Distribution Width 17.2 % (11.5-14.5); White Blood Count 9.9 K/mcL (4.3-11.1)
[2022-06-07 02:37] LABS: INR 3.8; Prothrombin Time 41.7 Seconds (9.4-12.1)
[2022-06-07 05:04] LABS: Calcium 9.2 mg/dL (8.6-10.3); Potassium 3.7 mEq/L (3.5-5.1)
[2022-06-07] MEDS: carvediloL 25 MG TABLET PO SCH ×2 (09:04→17:46)
[2022-06-07] MEDS: amLODIPine 5 MG TABLET PO SCH (09:06)
[2022-06-07] MEDS: Valsartan 160 MG TABLET PO SCH (09:06)
[2022-06-07] MEDS: *HR* Amiodarone 200 MG TABLET PO SCH ×2 (09:06→21:04)
[2022-06-07] MEDS: hydrALAZINE 25 MG TABLET PO SCH ×3 (09:06→21:07)
[2022-06-07] MEDS: Furosemide 40 MG/4 ML VIAL IVP SCH ×2 (09:06→17:45)
[2022-06-07] MEDS: Spironolactone 25 MG TABLET PO SCH ×2 (09:07→21:04)
[2022-06-07] MEDS: Insulin LISPRO 300 UNITS/3 ML VIAL SUBQ SCH ×3 (09:07→17:46)
[2022-06-07 14:24] LABS: Total Volume 24 Hour,Urine 2.95 Liters (0.80-1.80)
[2022-06-07 15:13] LABS: Total Volume 24 Hour,Urine 2.95 Liters (0.80-1.80)
[2022-06-08 05:21] LABS: Hematocrit 32.6 % (37.5-50.1); Hemoglobin 10.5 g/dL (12.9-16.9); INR 2.5; Mean Corpuscular HGB Conc 32.2 g/dL (31.6-35.5); Mean Corpuscular Volume 93.1 fL (83.0-100.0); Mean Platelet Volume 12.3 fL (9.4-12.4); Platelet Count 202 K/mcL (140-400); Prothrombin Time 28.1 Seconds (9.4-12.1); Red Cell Distribution Width 16.9 % (11.5-14.5); White Blood Count 8.8 K/mcL (4.3-11.1)
[2022-06-08 06:20] LABS: Calcium 9.4 mg/dL (8.6-10.3)
[2022-06-08] MEDS: Insulin LISPRO 300 UNITS/3 ML VIAL SUBQ SCH ×3 (07:55→17:32)
[2022-06-08] MEDS: Spironolactone 25 MG TABLET PO SCH (08:04)
[2022-06-08] MEDS: *HR* Amiodarone 200 MG TABLET PO SCH ×2 (08:04→20:24)
[2022-06-08] MEDS: amLODIPine 5 MG TABLET PO SCH (08:04)
[2022-06-08] MEDS: carvediloL 6.25 MG TABLET PO SCH ×2 (08:05→17:32)
[2022-06-08] MEDS: hydrALAZINE 25 MG TABLET PO SCH ×3 (08:05→20:24)
[2022-06-08] MEDS: Valsartan 160 MG TABLET PO SCH (08:05)
[2022-06-08] MEDS: Furosemide 40 MG TABLET PO SCH ×2 (08:28→17:32)
[2022-06-08] MEDS: Aspirin Enteric Coated 81 MG Tablet PO SCH (10:34)
[2022-06-08 12:41] LABS: % Iron Saturation 10 % (20-55); Iron 37 mcg/dL (65-175); Transferrin 264 mg/dL (203-362)
[2022-06-08 12:42] LABS: Ferritin 32 ng/mL (20-250)
[2022-06-08] MEDS ORDERED: *HR* Warfarin 2.5 MG TABLET PO ONE (18:00)
[2022-06-08 20:56] LABS: Sodium, Urine 75.2 mEq/L
[2022-06-09 03:11] LABS: Hematocrit 33.2 % (37.5-50.1); Hemoglobin 10.5 g/dL (12.9-16.9); Mean Corpuscular HGB Conc 31.6 g/dL (31.6-35.5); Mean Corpuscular Hemoglobin 29.7 pg (28.0-33.3); Mean Corpuscular Volume 93.8 fL (83.0-100.0); Mean Platelet Volume 12.2 fL (9.4-12.4); Platelet Count 199 K/mcL (140-400); Red Blood Count 3.54 M/mcL (4.19-5.50); Red Cell Distribution Width 16.5 % (11.5-14.5); White Blood Count 7.6 K/mcL (4.3-11.1)
[2022-06-09 03:24] LABS: INR 1.8; Prothrombin Time 19.6 Seconds (9.4-12.1)
[2022-06-09 03:44] LABS: Calcium 9.5 mg/dL (8.6-10.3); Magnesium 2.1 mg/dL (1.6-2.6); Potassium 3.8 mEq/L (3.5-5.1)
[2022-06-09 06:48] VITALS: O2SAT 94
[2022-06-09] MEDS: Insulin LISPRO 300 UNITS/3 ML VIAL SUBQ SCH ×2 (07:22→11:40)
[2022-06-09] MEDS: hydrALAZINE 25 MG TABLET PO SCH ×2 (08:43→15:24)
[2022-06-09] MEDS: *HR* Amiodarone 200 MG TABLET PO SCH (08:43)
[2022-06-09] MEDS: amLODIPine 5 MG TABLET PO SCH (08:43)
[2022-06-09] MEDS: carvediloL 6.25 MG TABLET PO SCH (08:43)
[2022-06-09] MEDS: Aspirin Enteric Coated 81 MG Tablet PO SCH (08:44)
[2022-06-09] MEDS: Furosemide 40 MG TABLET PO SCH (08:44)
[2022-06-09 10:43] VITALS: BP 112/68; PULSE 63; TEMP 97.7
[2022-06-09] MEDS ORDERED: *HR* Warfarin 5 MG TABLET PO ONE (18:00)
== END 2022-06-09 15:19 | disposition home or self-care (01) | DRG 291 ==
LOC: EMEROOARM 23:24 → 2NNU 23:24 → SUATTDRO 06-05 02:59 → 2NNU 06-05 04:00 → SUATTDRO 06-05 11:37 → 2ANU 06-07 22:36
PROVIDERS: ADMIT Internal Medicine; ATTEND Student in an Organized Health Care Education/Training Program